=== PATIENT | male | born 1940 | race Caucasian/White ===

== ENCOUNTER 2024-01-30 06:33 | Outpatient (REF) | payer MEDICARE, SELFPAY ==
[2024-01-30 06:44] LABS: MANUAL DIFF FLAG NO
[2024-01-30 07:05] LABS: Basophils Percent Auto 0.4 % (0-2); Eosinophils Absolute Auto 0.6 X10*3/uL (0.0-0.4); Eosinophils Percent Auto 10.3 % (0-4); Hematocrit 36.3 % (42.0-52.0); Hemoglobin 12.3 g/dl (14.0-18.0); Imm Gran Abs Auto 0.06 X10*3/uL (0.00-0.03); Imm Gran Pct Auto 1.1 % (0.0-0.4); Lymphocytes Absolute Auto 2.5 X10*3/uL (1.2-4.9); Lymphocytes Percent Auto 44.6 % (20-40); Mean Corpuscular HGB Conc 33.9 g/dl (31.0-36.0); Mean Corpuscular Hemoglobin 32.7 pg (27.0-33.0); Mean Corpuscular Volume 96.5 fL (80.0-98.0); Mean Platelet Volume 9.2 fL (9.4-12.4); Monocytes Absolute Auto 0.5 X10*3/uL (0.1-1.2); Monocytes Percent Auto 9.6 % (2-11); Neutrophils Absolute Auto 1.9 x10*3/uL (2.0-8.3); Platelet Count 188 X10*3/uL (160-400); Red Blood Count 3.76 X10*6/uL (4.60-5.80); Red Cell Distribution Width 13.2 % (11.0-16.0); White Blood Count 5.5 X10*3/uL (4.8-10.8)
[2024-01-30 07:15] LABS: Anion Gap 11 (12-20); Blood Urea Nitrogen 26 mg/dL (9-16); Calcium 9.2 mg/dL (8.4-10.2); Carbon Dioxide 25 mmol/L (22-29); Chloride 108 mmol/L (96-108); Cholesterol 221 mg/dL (<200); Estimated Glomerular Filt Rate > 60; Glucose Random 248 mg/dL (60-115); HDL Cholesterol 46 mg/dL (>40); LDL Cholesterol Calculated 141 mg/dL (<100); Potassium 3.8 mmol/L (3.3-5.1); Sodium 140 mmol/L (135-145); Triglycerides 172 mg/dL (<150)
[2024-01-30 07:28] LABS: Estimated Average Glucose 166 mg/dL; Hemoglobin A1c % 7.4 % (<6.0)
[2024-01-30 07:35] LABS: Prostate Specific Antigen 2.96 ng/mL (<0.05-4.0)
[2024-01-30 15:15] LABS: Appearance Urine Turbid; Color Urine Yellow; Glucose Urine UA Negative (Negative); Leukocyte Esterase Urine Large (3+) (Negative); Nitrite Urine Negative (Negative); PH 5.5 (5.0-9.0); Specific Gravity - Urine 1.015 (1.005-1.025); UMIC TRIGGER UA YES; Urine Blood Small (1+) (Negative); Urine Ketones Negative (Negative); Urine Protein Negative (Neg-Trace)
[2024-01-30 15:49] LABS: Creatinine Urine 25.98 mg/dL; Microalbum/Creatinine Ratio Ur 69.2 ug/mg cr (<30)
[2024-01-30 15:53] LABS: Bacteria Urine 4+ (None Seen); Calcium Oxalate Crystals Urine Present; RBC Urine 0-2 /HPF (0-2); Squamous Epithelial Cell Urine 0-2 /HPF (0-2); WBC Urine >50 /HPF (0-5)
[2024-02-01 21:43] LABS: TS Negative Control Passed; TS Panel A 0; TS Panel B 1; TS Positive Control Passed; TSpotTB Negative (Negative)
== END 2024-01-30 06:34 | disposition home or self-care (01) ==
LOC: HO.HSH2E 06:33
PROVIDERS: Visit Provider Internal Medicine Medical Oncology
DX: Z12.5 Encounter for screening for malignant neoplasm of prostate (principal); I13.0 Hypertensive heart and chronic kidney disease with heart failure and stage 1 through stage 4 chronic kidney disease, or unspecified chronic kidney disease; N18.9 Chronic kidney disease, unspecified
CPT/HCPCS: 36415; 80048; 80061; 81001; 82043; 82570; 83036; 84153; 85025; 86481

== ENCOUNTER 2024-02-01 11:28 | Outpatient (REF) | payer MEDICARE, MEDICAID, SELFPAY ==
[2024-02-01 12:23] LABS: Influenza A PCR NEGATIVE (Negative); Influenza B PCR NEGATIVE (Negative); Resp Syncy Virus RNA Qual PCR NEGATIVE (Negative); SARS COV2 PCR INHOUSE NEGATIVE (Negative)
== END 2024-02-01 11:29 | disposition home or self-care (01) ==
LOC: HO.HSH2E 11:28
PROVIDERS: Visit Provider Internal Medicine Medical Oncology
DX: I10 Essential (primary) hypertension (principal); R50.9 Fever, unspecified
CPT/HCPCS: 0241U

== ENCOUNTER 2024-03-21 15:38 | Outpatient (REF) | payer MEDICARE, MEDICAID, SELFPAY ==
[2024-03-22 10:13] LABS: Adenovirus F 40/41 Not Detected (Not Detect.); Astrovirus Not Detected (Not Detect.); Campylobacter Not Detected (Not Detect.); Cryptosporidium Not Detected (Not Detect.); Cyclospora cayetanensis Not Detected (Not Detect.); E. coli EAEC Not Detected (Not Detect.); E. coli EPEC Not Detected (Not Detect.); E. coli ETEC Not Detected (Not Detect.); E. coli STEC Not Detected (Not Detect.); Entamoeba histolytica Not Detected (Not Detect.); Giardia lamblia Not Detected (Not Detect.); Norovirus GI/GII Not Detected (Not Detect.); Plesiomonas shigelloides Not Detected (Not Detect.); Rotavirus A Not Detected (Not Detect.); Salmonella Not Detected (Not Detect.); Sapovirus Not Detected (Not Detect.); Shigella sp./EIEC Not Detected (Not Detect.); Vibrio Not Detected (Not Detect.); Vibrio Cholerae Not Detected (Not Detect.); Yersinia enterocolitica Not Detected (Not Detect.)
== END 2024-03-21 15:39 | disposition home or self-care (01) ==
LOC: HO.HSH2E 15:38
PROVIDERS: Visit Provider Nurse Practitioner Acute Care
DX: R19.7 Diarrhea, unspecified (principal)
CPT/HCPCS: 87507

== ENCOUNTER 2024-03-31 09:38 | Emergency (ER) | payer MEDICARE, MEDICAID, SELFPAY ==
--- NOTE | ~2024-03-31 | CT_ITS ---
EXAMINATION: CT ABDOMEN AND PELVIS WITH CONTRAST CLINICAL INFORMATION: Abdominal distention. Diarrhea. Concern for bowel obstruction COMPARISON: None available. TECHNIQUE: Multidetector volumetric images were obtained from the superior aspect of the liver through the pubic symphysis following administration 85 mL of Omnipaque 350 intravenous contrast. Sagittal and coronal reformatted images were obtained on the technologist's workstation. Oral contrast: No This CT examination was performed using dose optimization techniques as appropriate, variously including the following: *Automated exposure control *Adjustment of mA and/or kV according to patient size (this includes techniques or standardized protocols for targeted exams where dose is matched to indication/reason for exam; i.e. extremities or head) *Use of iterative reconstruction technique DLP: 753 mGy-cm FINDINGS: LUNG BASES: There is a partially imaged moderate right pleural effusion with right lung base consolidation. There is a minimal/small left pleural effusion with associated minimal consolidation. The heart is enlarged. LIVER, GALLBLADDER, AND BILIARY TREE: The liver is normal in size, shape, and attenuation. No focal hepatic lesion or biliary ductal dilatation is present. Numerous gallstones are noted. PANCREAS: Scattered pancreatic calcifications are noted. There is mild infiltrative change along the tail of the pancreas. SPLEEN: Unremarkable. ADRENAL GLANDS: Unremarkable. KIDNEYS AND URETERS: The kidneys are normal in size, shape, and attenuation. No hydronephrosis, hydroureter, or calculi seen. No perinephric stranding. BLADDER: The urinary bladder is mildly distended, mildly thickened and trabeculated. GASTROINTESTINAL TRACT: There is retained stool throughout the colon most prominent in the since rectum with rectal expansion up to 8.2 cm in rectal thickening as well as perirectal infiltration. There appears to be circumferential soft tissue thickening of the distal descending colon. The appendix is not identified. ABDOMINAL WALL: No significant hernia is appreciated. LYMPH NODES: Normal. VASCULAR: There is atherosclerotic plaque of the abdominal aorta and proximal branches. PELVIC VISCERA: The prostate gland is enlarged measuring 7 x 5.4 x 7 cm. OSSEOUS STRUCTURES: The bony structures are osteopenic. There is diffuse qdxp-fe-ownewarn thoracolumbar degenerative change. CT/CT abdomen pelvis w IV con IMPRESSION: 1. There is retained stool throughout the colon most prominent in the rectum with rectal expansion up to 8.2 cm with rectal wall thickening and perirectal infiltration. 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 2. There is circumferential soft tissue thickening of the distal descending colon. Colonic neoplasm considered. 3. There is a moderate right pleural effusion with right lung base consolidation likely atelectasis. 4. There is a minimal/small left pleural effusion with associated minimal atelectasis. 5. There is mild infiltrative change along the tail of the pancreas. Correlation with pancreatic enzymes needed. 6. There are pancreatic calcifications suggesting chronic pancreatitis. 7. Cholelithiasis. 8. Enlarged prostate gland. Distended mildly thickened and trabeculated urinary bladder. Fleischner guidelines were followed.
[2024-03-31 09:44] VITALS: BP 132/64; PULSE 58; O2SAT 96; BMI 26.4
[2024-03-31 09:49] VITALS: BP 125/61; PULSE 63; RESP 16; TEMP 36.7; O2SAT 98
[2024-03-31 10:09] LABS: MANUAL DIFF FLAG NO
--- NOTE | 2024-03-31 10:09 | PC.NURSE ---
pt alert and oriented to self at this time. hx of dementia. [facility] concern of possible bowel obstruction. pt had KUB completed[facility] to be evaluated. per EMS - pt has had intermittent diarrhea x january. pt denies abd pain/n/v/fever/chills. pt afebrile. abd nontender upon palpation. 20gIV placed in the right AC - labs obtained/sent to lab. urine sent. left BKA noted - no signs of infection noted. pt's right foot in pressure boot. no sob/wob noted. respirations even/unlabored. pt waiting to be seen by ED provider. plan of care ongoing. call gaytan placed within reach.
[2024-03-31 10:11] LABS: Appearance Urine Cloudy; Color Urine Yellow; Glucose Urine UA Negative (Negative); Leukocyte Esterase Urine Large (3+) (Negative); Nitrite Urine Negative (Negative); PH 5.5 (5.0-9.0); Specific Gravity - Urine 1.015 (1.005-1.025); UMIC TRIGGER UACC YES; Urine Blood Negative (Negative); Urine Ketones Negative (Negative); Urine Protein Negative (Neg-Trace)
[2024-03-31 10:13] LABS: Basophils Percent Auto 0.6 % (0-2); Eosinophils Absolute Auto 0.6 X10*3/uL (0.0-0.4); Eosinophils Percent Auto 11.5 % (0-4); Hematocrit 37.9 % (42.0-52.0); Hemoglobin 12.2 g/dl (14.0-18.0); Imm Gran Abs Auto 0.04 X10*3/uL (0.00-0.03); Imm Gran Pct Auto 0.7 % (0.0-0.4); Lymphocytes Absolute Auto 1.7 X10*3/uL (1.2-4.9); Mean Corpuscular HGB Conc 32.2 g/dl (31.0-36.0); Mean Corpuscular Hemoglobin 32.1 pg (27.0-33.0); Mean Corpuscular Volume 99.7 fL (80.0-98.0); Mean Platelet Volume 9.3 fL (9.4-12.4); Monocytes Absolute Auto 0.5 X10*3/uL (0.1-1.2); Monocytes Percent Auto 8.6 % (2-11); Neutrophils Absolute Auto 2.5 x10*3/uL (2.0-8.3); Neutrophils Percent Auto 46.6 % (45-73); Platelet Count 175 X10*3/uL (160-400); Red Cell Distribution Width 13.3 % (11.0-16.0); White Blood Count 5.4 X10*3/uL (4.8-10.8)
[2024-03-31 10:16] LABS: Bacteria Urine 4+ (None Seen); RBC Urine 0-2 /HPF (0-2); Squamous Epithelial Cell Urine 0-2 /HPF (0-2); UACC Culture Trigger YES; WBC Urine >50 /HPF (0-5)
[2024-03-31 10:30] LABS: Alanine Aminotransferase 13 U/L (0-40); Albumin Level 2.7 g/dL (3.5-5.0); Alkaline Phosphatase 118 U/L (39-117); Anion Gap 11 (12-20); Aspartate Amino Transferase 13 U/L (5-37); Bilirubin Total 0.7 mg/dL (0.0-1.0); Blood Urea Nitrogen 32 mg/dL (9-16); Carbon Dioxide 28 mmol/L (22-29); Chloride 107 mmol/L (96-108); Creatinine Clr Calc Pharmacy 90.9; Estimated Glomerular Filt Rate > 60; Glucose Random 258 mg/dL (60-115); Lipase 14 U/L (8-78); Potassium 4.3 mmol/L (3.3-5.1); Sodium 142 mmol/L (135-145)
[2024-03-31 10:39] LABS: Troponin-I High Sensitivity 28.6 ng/L (<3.5-35.0)
--- NOTE | 2024-03-31 11:50 | ED_ITS ---
HPI - Recheck/Abnormal Lab/Rx General Chief Complaint: Recheck/Abnormal Lab/Rx Stated Complaint: ABN LABS FROM [facility] PER EMS Time Seen by Provider: 03/31/24 11:50 Source: patient Mode of arrival: EMS Limitations: no limitations History of Present Illness ED Provider: Dr. Hill Olivas HPI narrative: 84-year-old male with a history of diabetes mellitus, atrial fibrillation, arrhythmias with pacemaker/AICD, muscular dystrophy-myotonic dystrophy type 2, left AKA, dementia with slow speech pattern who was [facility] the emergency department [facility] for evaluation of diarrhea times 1-1/2 weeks abdominal distention and possible ileus/bowel obstruction. Information comes from the patient's sutures here in the emergency department. The patient defers all questions to his . The patient has had diarrhea for proximally 1-1/2 weeks 2-3 episodes per day. Patient has been eating and drinking well. He has had no nausea or vomiting. A two view abdomen was obtained on 03/30/2024 and the results are as follows: Dilated loops of bowel. No gross mass or abnormal calcifications. Colonic fecal residue was noted. Soft tissue appears without significant abnormalities. Conclusion: Ileus type pattern favored, obstruction not excluded. Recommend CT or follow-up is clonic he warranted. Related Data Allergies Allergy/AdvReac Type Severity Reaction Status Date / Time No Known Allergies Allergy Verified 03/31/24 09:47 [No Known Allergies*] Review of Systems 2 Review of Systems: Yes all other systems are reviewed and are negative [facility] Past Medical History [facility] Narrative: Social history: Patient is . His is here in the emergency department with him. [facility]. According to his , he is a former smoker but quit smoking in 1978. He drank in moderation but does not drink now. He never use drugs. Social History Social History Smoked in Last 30 Days: No Use of substances other than those prescribed or required for medical reasons: No Advance Directives: Yes Advance Directives on File: No Do you have a plan to hurt others: No Plan Physical Exam 2 Vital Signs: Vital Signs: Last Vital Signs Temp 98.3 F 03/31/24 20:39 Pulse 65 03/31/24 20:39 Resp 18 03/31/24 20:39 BP 134/64 03/31/24 20:39 Pulse Ox 97 06/11/24 20:39 O2 Del Method Room Air 03/31/24 20:39 BMI result Body Mass Index 26.4 Vital signs were normal Exam: General: Awake, alert in no distress Head: Normocephalic, atraumatic EENT: PERRL, Lids normal, sclera normal, conjunctiva normal, nose normal , ears normal, throat without erythema or exudates Neck: Supple, no adenopathy Lung: breath sounds symmetric, no wheezing, rales or rhonchi Chest: symmetric movement, nontender Heart: regular rate and rhythm, normal S1, S2 no murmurs or rubs Abdomen: Distended, normoactive bowel sounds, no tenderness, no voluntary or involuntary guarding, no rebound Back: no vertebral tenderness, no CVAT Extremities: no deformities, moves all extremities symmetrically Neuro: Awake, alert, oriented to person only, slow speech pattern, difficulty with word finding, cranial nerves intact, moves all extremities symmetrically Psych: Pleasant, cooperative Medications Administered Discontinued Medications Generic Name Dose Route Start Last Admin Trade Name Anatoliyq PRN Reason Stop Dose Admin Diatrizoate Meglum/Diatrizoate Sod 30 ml 03/31/24 16:12 03/31/24 16:12 Diatrizoate Meglumine, Sodium 30 Ml Solution PO 03/31/24 16:13 30 ml ONCE ONE Administration Sodium Chloride 1,000 mls @ 999 mls/hr 03/31/24 12:30 03/31/24 14:05 Ns IV 03/31/24 13:30 Infused .Q1H1M STA Infusion Iohexol 85 ml 03/31/24 15:48 03/31/24 15:48 Iohexol 350 Mg/Ml 75 Ml Infus..Btl IV 03/31/24 15:49 85 ml ONCE ONE Administration Medical Decision Making Medical Decision Making MDM Narrative: 84-year-old male with a history of diabetes mellitus, atrial fibrillation, arrhythmias with pacemaker/AICD, muscular dystrophy-myotonic dystrophy type 2, left AKA, dementia with slow speech pattern who was [facility] emergency department [facility] for [facility] of diarrhea times 1-1/2 weeks abdominal distention and possible ileus/bowel obstruction seen on two view KUB. According to , the patient has had no complaints of abdominal pain, he has been eating and drinking well but has had diarrhea. Vital signs were normal. Abdomen did appear to be distended with normal bowel sounds and no tenderness. Differential diagnosis: ?Includes but is not limited to small/large bowel obstruction, partial bowel obstruction, ileus, GI mass, electrolyte abnormalities, anemia Following evaluation was ordered: CBC, CMP, lipase, troponin, urinalysis, C diff, GI panel, CT scan of the abdomen pelvis with IV contrast and oral contrast to rule out bowel obstruction Patient was initially treated with the following: Normal saline x1 L Course: 12:40 My independent interpretation patient's laboratory evaluation is as follows: CBC was normal. CMP revealed an elevated BUN of 32 with a normal creatinine of 0.71. Glucose was elevated 250 8. Alk-phos elevated 118. High sensitive troponin I was detectable but not elevated at 28.6. Lipase was normal at 14. 21:25 The patient has remained stable since being in the emergency department, he has had no nausea or vomiting. Due to a breakdown in the PACS system and radiology overload, there has been a long delay in getting CT scan readings from Radiology. At the end of my shift, the CT scan of the patient's abdomen pelvis with oral and IV contrast is pending. The patient's care was turned over to my colleague, Dr. Patito Potter's. Admission/Observation Consideration of admission/observation: Escalation of care including admission/observation considered Consult Healthcare Provider Management of the patient was discussed with: Primary Care Provider (Dr. Ruiz) Lab Data MDM Lab Attestation statement: I reviewed the patient's lab results. 03/31/24 10:00 03/31/24 10:00 Labs: Lab Results 03/31/24 03/31/24 Range/Units 10:00 18:31 WBC 5.4 (4.8-10.8) X10*3/uL RBC 3.80 L (4.60-5.80) X10*6/uL Hgb 12.2 L (14.0-18.0) g/dl Hct 37.9 L (42.0-52.0) % MCV 99.7 H (80.0-98.0) fL MCH 32.1 (27.0-33.0) pg MCHC 32.2 (31.0-36.0) g/dl RDW 13.3 (11.0-16.0) % Plt Count 175 (160-400) X10*3/uL MPV 9.3 L (9.4-12.4) fL Immature Gran % (Auto) 0.7 H (0.0-0.4) % Neut % (Auto) 46.6 (45-73) % Lymph % (Auto) 32.0 (20-40) % [place] % (Auto) 8.6 (2-11) % Eos % (Auto) 11.5 H (0-4) % Baso % (Auto) 0.6 (0-2) % Lymph # (Auto) 1.7 (1.2-4.9) X10*3/uL [place] # (Auto) 0.5 (0.1-1.2) X10*3/uL Eos # (Auto) 0.6 H (0.0-0.4) X10*3/uL Baso # (Auto) 0.0 (0.0-0.2) X10*3/uL Abs Immat Gran (auto) 0.04 H (0.00-0.03) X10*3/uL Absolute Neuts (auto) 2.5 (2.0-8.3) x10*3/uL Absolute Nucleated RBC 0.000 (0.0-0.012) X10*3/uL Nucleated RBC % (auto) 0.0 (0.0-0.2) /100WBC Sodium 142 (135-145) mmol/L Potassium 4.3 (3.3-5.1) mmol/L Chloride 107 (96-108) mmol/L Carbon Dioxide 28 (22-29) mmol/L Anion Gap 11 L (12-20) BUN 32 H (9-16) mg/dL Creatinine 0.71 (0.5-1.4) mg/dL Estim Creat Clear Calc 90.9 Estimated GFR > 60 POC Glucose 106 (60-115) mg/dL Random Glucose 258 H (60-115) mg/dL Calcium 9.0 (8.4-10.2) mg/dL Total Bilirubin 0.7 (0.0-1.0) mg/dL AST 13 (5-37) U/L ALT 13 (0-40) U/L Alkaline Phosphatase 118 H (39-117) U/L Troponin I High Sens 28.6 (<3.5-35.0) ng/L Total Protein 6.0 L (6.5-8.0) g/dL Albumin 2.7 L (3.5-5.0) g/dL Lipase 14 (8-78) U/L Urine Color Yellow Urine Appearance Cloudy Urine pH 5.5 (5.0-9.0) Ur Specific [place] 1.015 (1.005-1.025) Urine Protein Negative (Neg-Trace) mg/dL Urine Glucose (UA) Negative (Negative) mg/dL Urine Ketones Negative (Negative) mg/dL Urine Blood Negative (Negative) Urine Nitrite Negative (Negative) Ur Leukocyte Esterase Large (3+) H (Negative) Urine RBC 0-2 (0-2) /HPF Urine WBC >50 H (0-5) /HPF Ur Squamous Epith Cells 0-2 (0-2) /HPF Urine Bacteria 4+ (None Seen) Hyaline Casts 3-5 (0-2) /LPF Chronic Conditions Patient?s care impacted by: Diabetes and Other (Dementia, muscular dystrophy) Discharge Plan Discharge Clinical Impression: Diarrhea, Abdominal distension Patient Disposition: Still a Patient Print Language: Trinidadian
[2024-03-31 12:42] VITALS: BP 119/58; PULSE 63; RESP 16; TEMP 36.5; O2SAT 97
[2024-03-31] MEDS: 0.9 % Sodium Chloride 1,000 ML 999 ML IV (12:44)
--- NOTE | 2024-03-31 12:49 | PC.NURSE ---
IVF administered per provider order. pt waiting to go to CT at this time. bedside for support.
--- NOTE | 2024-03-31 15:20 | PC.NURSE ---
pt still verbalizing no pain at this time. has no acute complaints. CT reminded that pt completed drinking entire oral contrast in prep for CT to be completed. pt waiting to go to CT at this time. remains bedside for support. plan of care ongoing. call gaytan placed within reach.
[2024-03-31 15:26] VITALS: BP 143/63; PULSE 66; RESP 18; TEMP 36.6; O2SAT 97
[2024-03-31] MEDS: iohexoL 350 MG/ML 75 ML INFUS..BTL 85 ML IV (15:48)
--- NOTE | 2024-03-31 15:52 | PC.NURSE ---
pt to CT at this time.
[2024-03-31] MEDS: Diatrizoate Meglumine, Sodium 30 ML SOLUTION PO (16:12)
[2024-03-31 18:22] VITALS: BP 121/56; PULSE 65; RESP 16; TEMP 36.8; O2SAT 98
[2024-03-31 18:37] LABS: Glucose, Whole Blood 106 mg/dL (60-115)
[2024-03-31 20:39] VITALS: BP 134/64; PULSE 65; RESP 18; TEMP 36.8; O2SAT 97
[2024-03-31 21:32] LABS: Glucose, Whole Blood 106 mg/dL (60-115)
--- NOTE | 2024-03-31 23:07 | PC.NURSE ---
very upset that CT results aren't back yet. This RN apologized. stating [facility]'t hear anything in the next 15 minutes. made aware.
[2024-04-01 00:26] VITALS: BP 144/71; PULSE 65; RESP 18; TEMP 36.9; O2SAT 97
--- NOTE | 2024-04-01 00:37 | MHC.EDTECH ---
This tech took over care of patient at 2300,hourly rounds and vitals completed,patient had smears of brown stool, not enough to get a stool sample,patient was cleaned,danielle-care given, patient was repositioned to right side,pillows placed,rectal temp taken 98.4 ,patient came from the facility with a [place] Cath emptied 500MLS of yellow urine. call gaytan in reach
[2024-04-01] MEDS: Sodium Phosphate,Mono-Dibasic 133 ML ENEMA PR (02:34)
[2024-04-01 02:35] VITALS: BP 138/69; PULSE 68; RESP 18; TEMP 36.7; O2SAT 97
--- NOTE | 2024-04-01 02:36 | MHC.EDTECH ---
Hourly rounds and vitals completed,patient repositioned,warm blanket given,awaiting ambulance at this time to go back to facility
[2024-04-01 03:19] VITALS: BP 138/69; PULSE 68; RESP 18; TEMP 36.7; O2SAT 97
== END 2024-04-01 03:15 | disposition home or self-care (01) ==
PROVIDERS: Emergency Medicine Emergency Medical Services; Emergency Provider Emergency Medicine; PCP Internal Medicine Endocrinology, Diabetes & Metabolism
DX: R14.0 Abdominal distension (gaseous) (principal); R79.89 Other specified abnormal findings of blood chemistry; R11.2 Nausea with vomiting, unspecified; Z79.899 Other long term (current) drug therapy
CPT/HCPCS: 36415; 74177; 80053; 81001; 82947; 83690; 84484; 85025; 87086; 96360; 99285; Q9967

== ENCOUNTER → 2024-04-01 11:51 | Outpatient (AMB) | payer MEDICARE, SELFPAY ==
--- NOTE | 2024-04-01 11:50 | HO.VETSHOME ---
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 Thompson [facility] He has a past medical history of diabetes mellitus, atrial fibrillation, arrhythmias with pacemaker/AICD, muscular dystrophy-myotonic dystrophy type 2, left AKA, dementia with slow speech pattern. He is being followed up on today as a new patient for an enlarged prostate. Of note, patient was seen at [facility] emergency room services yesterday for question of possible ileus/bowel obstruction at which time a CT was ordered for further assessment evaluation. These results were reviewed today. The kidneys are normal in size, shape, and attenuation. No hydronephrosis, hydroureter, or calculi seen. No perinephric stranding. The urinary bladder is mildly distended, mildly thickened and trabeculated. Enlarged prostate noted In discussion with nursing today patient with a longstanding history of urinary incontinence and has been utilizing [place] catheter. Patient is a poor historian and it is difficult to obtain information. In discussion with the patient today he states Cant you go find someone else to play with . Unable to perform ZUHAIR and or PVR. Discussed potential for overflow incontinence verses incomplete bladder emptying related to question of bowel obstruction. In assessment of the patient today it appears [place] catheter is draining clear yellow urine. Nursing into attempt to obtain PVR. PVR 465ml's. However, this is not a true PVR as patient did not attempt to utilize the bathroom. Patient does not typically utilize the bathroom as he generally uses [place] catheter and or adult diapers. Discussed with nursing to obtain PVR every shift and to trend. Discussed if PVRs continue to trend up to straight cath or insert contreras catheter and call urology office so that we are aware of new plan of care. In review of patients chart it appears PSA was obtained however this was not available at the time of this visit. PSA 02/11 3.0 Review of Systems Const Unobtainable due to mental status Physical Exam Const General: comfortable, no acute distress, well developed, alert and awake Orientation/consciousness: oriented to person HEENT Head: Yes normal to inspection, Yes normocephalic and Yes atraumatic Eyes General: appearance normal, both eyes and all related structures Neck Neck: Yes normal visual inspection Chest Chest palpation & inspection: normal inspection of the chest Resp Effort & Inspection: normal respiratory effort and able to speak in complete sentences Cardio Rate: regular rate GI Inspection: Yes normal to inspection Neuro General: oriented to person Psych Appearance: well kempt Speech and movement: Clear speech present Attitude: Avoids eye contact (attititude/behavior) Insight: Limited insight present (Psych) and Poor insight present (Psych) Judgement: Limited judgement present (Psych) and Poor judgement present (Psych) Results Reviewed Results Reviewed: Date of Service: 03/31/24 EXAMINATION: CT ABDOMEN AND PELVIS WITH CONTRAST LUNG BASES: There is a partially imaged moderate right pleural effusion with right lung base consolidation. There is a minimal/small left pleural effusion with associated minimal consolidation. The heart is enlarged. LIVER, GALLBLADDER, AND BILIARY TREE: The liver is normal in size, shape, and attenuation. No focal hepatic lesion or biliary ductal dilatation is present. Numerous gallstones are noted. PANCREAS: Scattered pancreatic calcifications are noted. There is mild infiltrative change along the tail of the pancreas. SPLEEN: Unremarkable. ADRENAL GLANDS: Unremarkable. KIDNEYS AND URETERS: The kidneys are normal in size, shape, and attenuation. No hydronephrosis, hydroureter, or calculi seen. No perinephric stranding. BLADDER: The urinary bladder is mildly distended, mildly thickened and trabeculated. GASTROINTESTINAL TRACT: There is retained stool throughout the colon most prominent in the since rectum with rectal expansion up to 8.2 cm in rectal thickening as well as perirectal infiltration. There appears to be circumferential soft tissue thickening of the distal descending colon. The appendix is not identified. ABDOMINAL WALL: No significant hernia is appreciated. LYMPH NODES: Normal. VASCULAR: There is atherosclerotic plaque of the abdominal aorta and proximal branches. PELVIC VISCERA: The prostate gland is enlarged measuring 7 x 5.4 x 7 cm. OSSEOUS STRUCTURES: The bony structures are osteopenic. There is diffuse mezu-da-gfsihpeb thoracolumbar degenerative change. IMPRESSION: 1. There is retained stool throughout the colon most prominent in the rectum with rectal expansion up to 8.2 cm with rectal wall thickening and perirectal infiltration. 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 2. There is circumferential soft tissue thickening of the distal descending colon. Colonic neoplasm considered. 3. There is a moderate right pleural effusion with right lung base consolidation likely atelectasis. 4. There is a minimal/small left pleural effusion with associated minimal atelectasis. 5. There is mild infiltrative change along the tail of the pancreas. Correlation with pancreatic enzymes needed. 6. There are pancreatic calcifications suggesting chronic pancreatitis. 7. Cholelithiasis. 8. Enlarged prostate gland. Distended mildly thickened and trabeculated urinary bladder. Assessment & Plan Assessment & Plan (1) Enlarged prostate: Code(s): N40.0 - Benign prostatic hyperplasia without lower urinary tract symptoms (2) Incomplete bladder emptying: Code(s): R33.9 - Retention of urine, unspecified (3) Urinary incontinence: Code(s): R32 - Unspecified urinary incontinence (4) Bladder trabeculation: Code(s): N32.89 - Other specified disorders of bladder (5) Bladder wall thickening: Code(s): N32.89 - Other specified disorders of bladder Plan Recent CT results reviewed; as noted above. Recent PSA results reviewed. Discuss obtaining and trending postvoid residuals every shift; discussed if postvoid residuals continue to increase consistently potential need for straight cath verses Contreras catheter. Discussed calling office if straight cath or Contreras is inserted to potentially arrange for in office cystoscopy for further assessment evaluation. Start finasteride 5 mg daily Start terazosin 5 mg daily Continue [place] catheter as patient with longstanding history of urinary incontinence. Follow up in 1-2 months or sooner with any issues, concerns, and or questions. Patient Instructions: The patient had an opportunity to ask questions regarding the treatment plan. All questions were answered. Physical exam, labs, and imaging were discussed and reviewed in detail. As well as risks, benefits, and discussion of treatment choices. No major barriers to understanding were identified. The patient expressed understanding and agreement with the above treatment plan. The patient was made aware they should contact our office by phone for worsening of their current condition, the appearance of new symptoms, or with any questions or concerns. Compliance is encouraged with any medications and follow up testing that is ordered. It is a privilege to be allowed the opportunity to participate in? your urological care.? Again, if you have any questions or concerns If you have any questions or concerns please do not hesitate to contact me. The office is [phone]. This note is constructed using voice recognition software. While every effort has been made to ensure accuracy bottom turner errors may have been included. Yours sincerely, NIRMALA Manuel Coding Level of Care Code 36260-Rswd Fac initial, mod Diagnoses Enlarged prostate N40.0 Incomplete bladder emptying R33.9 Urinary incontinence R32 Bladder trabeculation N32.89 Bladder wall thickening N32.89
== END ==
PROVIDERS: PCP Internal Medicine Endocrinology, Diabetes & Metabolism; Visit Provider Nurse Practitioner Family
DX: N40.0 Benign prostatic hyperplasia without lower urinary tract symptoms (principal); R33.9 Retention of urine, unspecified; R32 Unspecified urinary incontinence; N32.89 Other specified disorders of bladder
CPT/HCPCS: 99305

== ENCOUNTER 2024-04-02 07:05 | Outpatient (REF) | payer MEDICARE, SELFPAY ==
[2024-04-02 08:32] LABS: PSA,Total (Free>4and<10) 2.85 ng/mL (0.00-4.00)
== END 2024-04-02 07:06 | disposition home or self-care (01) ==
LOC: HO.HSH2E 07:05
PROVIDERS: Visit Provider Internal Medicine Medical Oncology
DX: Z12.5 Encounter for screening for malignant neoplasm of prostate (principal); N40.0 Benign prostatic hyperplasia without lower urinary tract symptoms
CPT/HCPCS: 36415; 84153

== ENCOUNTER 2024-04-20 06:31 | Outpatient (REF) | payer MEDICARE, SELFPAY ==
[2024-04-20 06:37] LABS: MANUAL DIFF FLAG NO
[2024-04-20 07:29] LABS: Basophils Percent Auto 0.6 % (0-2); Eosinophils Absolute Auto 0.5 X10*3/uL (0.0-0.4); Eosinophils Percent Auto 10.6 % (0-4); Hematocrit 37.8 % (42.0-52.0); Hemoglobin 12.5 g/dl (14.0-18.0); Imm Gran Abs Auto 0.07 X10*3/uL (0.00-0.03); Imm Gran Pct Auto 1.4 % (0.0-0.4); Lymphocytes Absolute Auto 1.9 X10*3/uL (1.2-4.9); Lymphocytes Percent Auto 39.4 % (20-40); Mean Corpuscular HGB Conc 33.1 g/dl (31.0-36.0); Mean Corpuscular Hemoglobin 32.6 pg (27.0-33.0); Mean Corpuscular Volume 98.4 fL (80.0-98.0); Mean Platelet Volume 9.2 fL (9.4-12.4); Monocytes Absolute Auto 0.5 X10*3/uL (0.1-1.2); Monocytes Percent Auto 9.6 % (2-11); Neutrophils Absolute Auto 1.9 x10*3/uL (2.0-8.3); Neutrophils Percent Auto 38.4 % (45-73); Platelet Count 196 X10*3/uL (160-400); Red Blood Count 3.84 X10*6/uL (4.60-5.80); Red Cell Distribution Width 13.2 % (11.0-16.0); White Blood Count 4.9 X10*3/uL (4.8-10.8)
[2024-04-20 08:06] LABS: Alanine Aminotransferase 25 U/L (0-40); Albumin Level 2.5 g/dL (3.5-5.0); Alkaline Phosphatase 131 U/L (39-117); Anion Gap 11 (12-20); Aspartate Amino Transferase 17 U/L (5-37); Bilirubin Total 0.7 mg/dL (0.0-1.0); Blood Urea Nitrogen 20 mg/dL (9-16); Calcium 8.8 mg/dL (8.4-10.2); Carbon Dioxide 25 mmol/L (22-29); Chloride 107 mmol/L (96-108); Estimated Glomerular Filt Rate > 60; Glucose Random 122 mg/dL (60-115); Potassium 3.8 mmol/L (3.3-5.1); Sodium 139 mmol/L (135-145); Total Protein 5.8 g/dL (6.5-8.0)
== END 2024-04-20 06:32 | disposition home or self-care (01) ==
LOC: HO.HSH2E 06:31
PROVIDERS: Visit Provider Internal Medicine Medical Oncology
DX: E11.9 Type 2 diabetes mellitus without complications (principal); I48.91 Unspecified atrial fibrillation
CPT/HCPCS: 36415; 80053; 82378; 85025

== ENCOUNTER 2024-04-22 10:23 | Outpatient (AMB) | payer MEDICARE, SELFPAY ==
--- NOTE | 2024-04-22 10:25 | MHC.OFFVIS ---
Vital Signs 04/22/24 11:40 Height 6 ft Weight 205 lb BMI 27.8 BP 148/66 H Blood Pressure Location Lt brachial Position Sitting Pulse 66 Pulse Source Pulse Oximeter Pulse Oximetry (%) 96 Oxygen Delivery Method Room Air Intake Visit Reasons: colitis Intake Note: Beka presents in office today for a scheduled initial assessment visit. CC; Beka was seen at the [facility] ED on 04/01/2024 for related sx. Pt had CT performed at this visit which showed increased inflammation in the rectal region. Pt was advised that he may require a colo s/p depending on the opinion of the GI specialist. Pt spouse reports that the pt has been experiencing intermittent diarrhea and constipation. Pt is unsure the approximate time between bowel movements. However, she can report that he does have frequent loose stools. Pt had been receiving enemas however it seems that they have stopped this at this time. Pt reports that they are concerned about the possibility of anesthesia and the interaction with dementia. Health Education Coordinator Required: No Allergies No Known Allergies [No Known Allergies*] Allergy (Verified 04/22/24 14:26) HPI HPI colitis: Details: ED VISIT 03/31/2024 I received sign-out from my colleague Dr. Olivas -CT scan of the abdomen pending, to rule out small bowel obstruction. -radiology report: No small bowel obstruction. However, there is rectal wall thickening suggestive of stercoral colitis and possibly a colonic neoplasm considered. There is chronic inflammation in the pancreas, however patient's lipase is within normal limits, patient has no significant abdominal pain. There is a minimal/small left pleural effusion, patient has no respiratory symptoms or oxygen desaturation -[facility], recommended that the patient follows up with Gastroenterology, patient may need a colonoscopy IMPRESSION: 1. There is retained stool throughout the colon most prominent in the rectum with rectal expansion up to 8.2 cm with rectal wall thickening and perirectal infiltration. 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 2. There is circumferential soft tissue thickening of the distal descending colon. Colonic neoplasm considered. 3. There is a moderate right pleural effusion with right lung base consolidation likely atelectasis. 4. There is a minimal/small left pleural effusion with associated minimal atelectasis. 5. There is mild infiltrative change along the tail of the pancreas. Correlation with pancreatic enzymes needed. 6. There are pancreatic calcifications suggesting chronic pancreatitis. 7. Cholelithiasis. 8. Enlarged prostate gland. Distended mildly thickened and trabeculated urinary bladder. 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 Patient is accompanied by his . [facility] Patient is sitting in the wheelchair, patient has mild dementia and unable to answer questions. Patient's is answering questions. Back in March patient was seen in the ER for diarrhea that lasted over 1 week. Patient prior to that was getting Fleet enema almost daily. Patient had no fever or chills. Patient denied any abdominal pain or discomfort. There was no melena or hematochezia. Patient was shown to have mild infiltrative changes along the tail of the pancreas, however his enzymes were normal in the ER at that time. Patient had no nausea or vomiting. Today patient reports that he is feeling fine. His states that his stools has normalized. He however occasionally still have loose stools. Patient denies any abdominal pain or bloating. Patient denies any rectal discomfort or pain. Patient had no leukocytosis. 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 Atrial flutter Surgical History Status post ablation of atrial fibrillation Hx of appendectomy Family History Mother Colon cancer Social History Alcohol intake: former Patient Tobacco Use Status: Former Tobacco user Tobacco use type: Cigarette Review of Systems Const Unobtainable due to mental status and Other (Most of information from patient's ) Denies weight gain and Denies weight loss ENT Reports no additional complaints, Denies dysphagia and Denies odynophagia Card Reports no additional complaints Resp Reports no additional complaints GI Denies abdominal pain, Denies belching, Denies melena, Denies bloating, Denies change in bowel habits, Denies dysphagia, Denies excessive flatus, Denies dyspepsia, Denies heartburn, Denies diarrhea, Denies loose stools, Denies nausea, Denies odynophagia and Denies vomiting Reports no additional complaints Musc Reports no additional complaints Neuro Reports no additional complaints Psych Reports no additional complaints Endo Reports no additional complaints Physical Exam Vital Signs: Last Vital Signs Pulse 66 04/22/24 11:40 BP 148/66 H 04/22/24 11:40 Pulse Ox 96 04/22/24 11:40 Oxygen Delivery Method Room Air 04/22/24 11:40 BMI result Body Mass Index 27.8 Const Other: Patient is sitting in the wheelchair left above knee amputee, history of dementia, able to answer all the questions and provide history General: healthy appearing, no acute distress and well developed Nutritional Appearance: well nourished Orientation/consciousness: patient oriented x3 Resp Effort & Inspection: normal respiratory effort, able to speak in complete sentences, no tracheal deviation and symmetric chest movement Auscultation: clear to auscultation bilaterally Cardio Rate: regular rate GI Inspection: Yes normal to inspection and No distended Palpation (GI): Soft to palpation, not firm, nontender and No hepatosplenomegaly present Auscultation: normal bowel sounds General: Yes no CVA tenderness Back/Spine/Pelvis Back: no CVA tenderness Skin General skin exam: elasticity normal, turgor normal and dry skin Neuro General: patient oriented x3 Psych Appearance: grossly normal Mental Status: mental status grossly normal Assessment & Plan Assessment & Plan (1) Diarrhea: Code(s): R19.7 - Diarrhea, unspecified Qualifiers: Diarrhea type: functional diarrhea Qualified Code(s): K59.1 - Functional diarrhea (2) Constipation: Code(s): K59.00 - Constipation, unspecified Qualifiers: Constipation type: slow transit constipation Qualified Code(s): K59.01 - Slow transit constipation (3) Stercoral colitis: Code(s): K52.89 - Other specified noninfective gastroenteritis and colitis Category: Medical Plan Recommendation to stop MiraLax and start patient on fiber supplement daily. Patient can take Benefiber to help bulk stools and may take Senokot in the evening two tablets to help eliminate his bowels better. We will hold off on ordering colonoscopy at this time. 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 Stercoral colitis was most likely created by frequent diarrhea and possibly Fleet enemas. Currently patient reports that Fleet enemas on hold. Continue holding for now. For now we will order CT enterography. Even though the CT scan was IV contrast there was no oral contrast,we will re-evaluate after enterography will be performed with both oral and IV contrast. CEA was normal which tells me that most likely benign finding on a CT scan. All of this was discussed with patient and his , however patient is unable to understand. Patient is agreeable to plan of care and verbalizes understanding of instructions. She was given the opportunity to ask questions and all questions answered. Thank you for allowing me to participate in his care Orders: Orders CT enterography Today R93.5 - Abnormal findings on diagnostic imaging of other abdominal regions, including retroperitoneum Blood Urea Nitrogen Today R10.11 - Right upper quadrant pain Creatinine Today R10.11 - Right upper quadrant pain Medications: New sennosides (Natural Senna Laxative) 17.2 mg (2 x 8.6 mg) PO BEDTIME 60 tabs 1RF constipation K59.00 - Constipation, unspecified wheat dextrin (Benefiber Clear Sugar Free(dextrin)) mix into at least 4 oz water or juice before administering 1 packet PO DAILY 28 ea 5RF K59.01 - Slow transit constipation Coding Level of Care Code New Pt Level 4 (97110) Diagnoses Functional diarrhea K59.1 Diarrhea type: functional diarrhea Slow transit constipation K59.01 Constipation type: slow transit constipation Stercoral colitis K52.89 Time Spent (min) 45 Comment 30 minutes spent with patient and additional 15 minutes spent reviewing his records
[2024-04-22 11:40] VITALS: BP 148/66; PULSE 66; O2SAT 96; BMI 27.8
== END 2024-04-22 12:13 | disposition home or self-care (01) ==
PROVIDERS: PCP Internal Medicine Endocrinology, Diabetes & Metabolism; Visit Provider Nurse Practitioner Family
DX: K59.1 Functional diarrhea (principal); K59.01 Slow transit constipation; K52.89 Other specified noninfective gastroenteritis and colitis
CPT/HCPCS: 99204

== ENCOUNTER → 2024-04-22 10:23 | Outpatient (BNVA) | payer MEDICARE, SELFPAY | PROVIDERS: PCP Internal Medicine Endocrinology, Diabetes & Metabolism; Visit Provider Nurse Practitioner Family | DX: K59.01 Slow transit constipation (principal); K59.1 Functional diarrhea; K52.89 Other specified noninfective gastroenteritis and colitis; R93.5 Abnormal findings on diagnostic imaging of other abdominal regions, including retroperitoneum; R10.11 Right upper quadrant pain | CPT/HCPCS: 99202 ==

== ENCOUNTER 2024-04-22 14:25 | Outpatient (AMB) | payer MEDICARE, SELFPAY ==
--- NOTE | 2024-04-22 14:25 | A.OFFVIS_ITS ---
Intake Intake Visit Reasons: CT f/u It Applications Analyst Required: No Allergies No Known Allergies [No Known Allergies*] Allergy (Verified 04/22/24 14:26) HPI HPI Comments History of Present Illness Details Beka is a pleasant male. He is a patient of Dr. Thompson. [facility] He is seen for the following urologic conditions - lower urinary tract symptoms Lower urinary tract symptoms CT imaging performed during emergency room admission which showed distended bladder, mildly thickened with trabeculation Enlarged prostate Longstanding urinary incontinence with use of [place] catheter PSA 02/11 3.0 Optimization with prostate medications finasteride and terazosin PVR trends underwent 100 cc Continue medications [facility] Medical History (Updated 04/22/24 @ 19:45 by Autumn Rojas [facility]-) Stercoral colitis Spontaneous ASD closure Hemorrhoids Dysphagia Obstructive and reflux uropathy BPH (benign prostatic hyperplasia) Chronic kidney disease Spinal stenosis Diabetes mellitus Myotonic muscular dystrophy Anemia Hyperlipidemia Hypertension Atrial fibrillation Pacemaker 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 Atrial flutter Surgical History Status post ablation of atrial fibrillation Hx of appendectomy Family History Mother Colon cancer Social History Alcohol intake: former Patient Tobacco Use Status: Former Tobacco user Tobacco use type: Cigarette Review of Systems Const Denies chills and Denies fever(s) Card Reports no additional complaints and Denies syncope Resp Denies cough GI Denies abdominal pain and Denies heartburn Reports as per HPI and Denies change in libido Neuro Denies syncope Psych Denies change in libido Endo Denies change in libido Physical Exam Const General: cooperative, healthy appearing, comfortable and no acute distress Orientation/consciousness: patient oriented x3 HEENT Face and sinus: Yes normal facial exam Mouth: moist mucous membranes Neck Neck: Yes normal visual inspection, Yes full ROM and Yes trachea midline Chest Chest palpation & inspection: normal inspection of the chest Resp Effort & Inspection: normal respiratory effort, able to speak in complete sentences and no respiratory distress GI Inspection: Yes normal to inspection Back/Spine/Pelvis Cervical Spine: normal cervical lordosis Thoracic/Lumbar Spine: thoracic and lumbar spine normal to inspection Skin General skin exam: no rashes or lesions noted Neuro General: patient oriented x3, gait normal, tone normal and moves all extremities Extrem General: Yes normal to inspection and Yes capillary refill normal Assessment & Plan Assessment & Plan (1) Bladder wall thickening: Code(s): N32.89 - Other specified disorders of bladder (2) Bladder trabeculation: Code(s): N32.89 - Other specified disorders of bladder (3) Urinary incontinence: Code(s): R32 - Unspecified urinary incontinence Plan Continue medications Six-month follow-up Patient Instructions: Imaging studies, laboratory and physical exam results were discussed and reviewed in detail. No major barriers to patient understanding were identified. An opportunity to ask questions regarding the treatment plan was provided. All questions were answered. The patient expressed understanding and agreement with the above treatment plan. The patient is aware they should contact our office by phone for worsening of their current condition or the appearance of new urologic symptoms. Compliance is encouraged with any medications and followup testing that is ordered. It is a privilege to participate in the urologic care of your patient. If you have any questions or concerns regarding treatment for the above conditions, or other urologic issues, please do not hesitate to contact me. The office telephone contact is [phone]. This note is constructed using voice recognition software. While every effort has been made to ensure accuracy window decorator errors may have been included. Yours sincerely, Dr Yasir Simon MD, [facility] - Urology Providers of Expert, Compassionate Care for the Genitourinary System Coding Level of Care Code [id number] Fac sub, mod Diagnoses Bladder wall thickening N32.89 Bladder trabeculation N32.89 Urinary incontinence R32
== END 2024-04-22 16:00 | disposition home or self-care (01) ==
LOC: HO.HUSV 14:25
PROVIDERS: PCP Internal Medicine Endocrinology, Diabetes & Metabolism; Visit Provider Urology
DX: N32.89 Other specified disorders of bladder (principal); R32 Unspecified urinary incontinence
CPT/HCPCS: 99309

== ENCOUNTER 2024-05-20 06:13 | Outpatient (REF) | payer MEDICARE, SELFPAY ==
[2024-05-20 06:44] LABS: Blood Urea Nitrogen 31 mg/dL (9-16); Estimated Glomerular Filt Rate > 60
== END 2024-05-20 06:14 | disposition home or self-care (01) ==
LOC: HO.HSH2E 06:13
PROVIDERS: Visit Provider Internal Medicine Endocrinology, Diabetes & Metabolism
DX: E11.9 Type 2 diabetes mellitus without complications (principal); N40.0 Benign prostatic hyperplasia without lower urinary tract symptoms
CPT/HCPCS: 36415; 82565; 84520

== ENCOUNTER 2024-05-24 12:51 | Inpatient (IN) | payer MEDICARE, MEDICAID, SELFPAY ==
--- NOTE | ~2024-05-24 | CT_ITS ---
EXAMINATION: CTA NECK WITH CONTRAST (STROKE) CTA BRAIN WITH CONTRAST (STROKE) CLINICAL INFORMATION: Suspect acute stroke. Assess for major vessel occlusion. Please call report. COMPARISON: None available. TECHNIQUE: CTA of the head and neck was performed in the axial plane from the mediastinum to the skull vertex using 70 mL Omnipaque 350 intravenous contrast. Additional reformatted multiplanar images including maximum intensity projection MIP images are generated on the CT workstation. This CT examination was performed using dose optimization techniques as appropriate, variously including the following: *Automated exposure control *Adjustment of mA and/or kV according to patient size (this includes techniques or standardized protocols for targeted exams where dose is matched to indication/reason for exam; i.e. extremities or head) *Use of iterative reconstruction technique DLP: 1735 mGy-cm FINDINGS: The degree of stenosis determined by criteria similar to NASCET. CTA NECK: Three-vessel aortic arch. There are atherosclerotic calcifications scattered through origins and segments of the the great vessels without significant stenosis. The origins and cervical segments of the common carotid arteries are patent bilaterally. The common carotid artery bifurcations demonstrate mural calcifications extending into the cervical segments of the internal carotid arteries. There is approximately 30% focal stenosis of the Roxanol left cervical ICA. No significant stenosis on the right. The remaining segments of the cervical ICAs are patent bilaterally. There is complete occlusion of the left vertebral artery origin. The origin of the paravertebral arteries patent. The cervical segments of the vertebral arteries are patent bilaterally. No other site of hemodynamically significant stenosis, dissection, or aneurysm. The visualized branches of the external carotid arteries are unremarkable. CTA HEAD: Moderate atherosclerotic calcifications of the bilateral carotid siphons. Anterior circulation: The petrous, cavernous, and supraclinoid segments of the internal carotid arteries are patent bilaterally. The major branches of the anterior and middle cerebral arteries as well as the anterior communicating artery complex are patent. No large vessel occlusion, saccular aneurysm, or dissection. Posterior circulation: The intracranial vertebral arteries are patent bilaterally. The basilar artery is normal in course and caliber. The posterior cerebral and superior cerebellar arteries arise normally from the basilar summit. Right posterior cerebral artery. No aneurysm. On delayed imaging, the venous structures demonstrate normal contrast opacification. No filling defect. No abnormal intraparenchymal enhancement. Soft tissues: No suspicious neck mass or cervical adenopathy. Lungs: Partially imaged right pleural effusion with partial right lower lobe collapse. Bones: No acute osseous abnormality. No lytic or blastic osseous lesions. Multilevel degenerative changes of the visualized spine. CT/CT angio head neck stroke IMPRESSION: -CTA head demonstrates no large vessel occlusion, saccular aneurysm, or dissection. -CTA and neck demonstrates complete focal stenosis of the left vertebral artery origin. 30% focal stenosis of the left cervical ICA. Otherwise, no hemodynamically significant stenosis, dissection, or aneurysm. Partially imaged right pleural effusion with partial right lower lobe collapse.
--- NOTE | ~2024-05-24 | CT_ITS ---
EXAMINATION: CT HEAD WITHOUT CONTRAST (STROKE PROTOCOL) CLINICAL INFORMATION: Stroke protocol. AMS. COMPARISON: CT brain 09/01/2015. TECHNIQUE: Contiguous axial imaging was performed from the skull base to vertex without intravenous administration of contrast. This CT examination was performed using dose optimization techniques as appropriate, variously including the following: *Automated exposure control *Adjustment of mA and/or kV according to patient size (this includes techniques or standardized protocols for targeted exams where dose is matched to indication/reason for exam; i.e. extremities or head) *Use of iterative reconstruction technique DLP: 840 mGy-cm FINDINGS: There is no acute intra-axial, extra-axial bleed, masses or midline shift. There is no acute infarction in evolution. There is no edema. There is diffuse periventricular hypodensity in both cerebral hemispheres. There is Right frontal encephalomalacia from old insult with surrounding hypodensity likely chronic ischemic changes.. The lateral ventricles are enlarged but symmetrical. Bone windows reveal no calvarial abnormality. There is no scalp soft tissue abnormality. There is mucoperiosteal thickening right frontal, middle ethmoid and maxillary sinuses. Rest the paranasal sinuses and mastoid air cells are well-aerated. CT/CT head for stroke IMPRESSION: No acute intracranial process seen. There is a right frontal lobe encephalomalacia with chronic white matter changes. Chronic inflammatory changes right frontal, middle ethmoid and maxillary sinuses. This critical result was discussed with EVENS Lacey at 1:2 PM on 05/24/2024. It was ascertained that the content and urgency of the report was understood at the time of direct communication.
--- NOTE | 2024-05-24 12:51 | ECG_ITS ---
Test Reason : STROKE Blood Pressure : / mmHG Vent. Rate : 062 BPM Atrial Rate : 060 BPM P-R Int : 000 ms QRS Dur : 162 ms QT Int : 498 ms P-R-T Axes : 000 125 -40 degrees QTc Int : 505 ms Ventricular-paced rhythm with occasional Premature ventricular complexes Biventricular pacemaker detected Abnormal ECG No previous ECGs available Referred By: Nikhil Galeano Electronically Signed By:BRIDGETTE CHASE MD
[2024-05-24 12:57] VITALS: BP 122/63; PULSE 64; PULSE 75; RESP 18; TEMP 36.4; O2SAT 94; BMI 32.5
--- NOTE | 2024-05-24 13:00 | PC.NURSE ---
[facility] via [facility]. 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 staff reports sudden onset of being nonverbal/aggressive towards staff (which is not pt's baseline). MD at [facility] noticed small left sided facial droop. fast ED = 3. +thinners. hx of dementia. upon EMS arrival - pt in physical restraints as he was combative w/ SNF staff as well as EMS. transferred to stretcher w/o any combative episodes. accurate weight obtained. vss. pt immediately to CT. when being assessed by provider - pt remains nonverbal. flat affect. no facial droop noted. unable to assess mental status as pt does not respond to questions/follow commands appropriately. pt seems to be disoriented. foul/strong urine odor noted to be coming from pt. external catheter in place prior to EMS arrival - placed by [facility]. 20gIV placed in the right forearm - patent/intact. access wrapped w/ curex bandage for safety precautions. pt seems to be in no apparent distress. no sob/wob noted. respirations even/unlabored. plan of care ongoing.
--- NOTE | 2024-05-24 13:00 | ED.GENADULT ---
HPI - General Adult General Chief complaint: Stroke Stated complaint: NONVEBAL, STROKE SYMPTOMS Time Seen by Provider: 05/24/24 12:53 Source: EMS Mode of arrival: EMS Limitations: altered mental status History of Present Illness ED Provider: Moiz WALKER HPI narrative: 84-year-old male history of diabetes mellitus, atrial fibrillation, arrhythmias with pacemaker/AICD, muscular dystrophy-myotonic dystrophy type 2, left AKA, BPH presents with complete aphasia that started an hour ago followed by altered mental status and aggressive behavior [facility] This is reported to me by EMS. Patient unable to provide me history. Patient arrives with a blank stare, blinking. Not following commands not able to speak. Unable to obtain an accurate neurological assessment on patient's arrival. Unable to obtain NIH stroke scale. Unable to obtain dedicated review of systems due to patient's mental status Related Data Home Medications ?Medication ?Instructions ?Recorded ?Confirmed acetaminophen 325 mg tablet 650 mg PO .Q12HRs 04/02/24 apixaban 5 mg tablet 5 mg PO BID 04/02/24 aspirin 81 mg chewable tablet 81 mg PO DAILY 04/02/24 cholecalciferol (vitamin D3) 25 25 mcg PO DAILY 04/02/24 mcg (1,000 unit) tablet ferrous fumarate 325 mg (106 mg 325 mg PO DAILY 04/02/24 iron) tablet finasteride 5 mg tablet 5 mg PO DAILY 04/02/24 glipizide 5 mg tablet 5 mg PO DAILY 04/02/24 insulin glargine 100 unit/mL (3 10 unit subcut QPM 04/02/24 mL) subcutaneous pen insulin lispro 100 unit/mL 10 unit subcut QPM 04/02/24 subcutaneous pen loperamide 2 mg tablet 2 mg PO Q3H PRN 04/02/24 melatonin 3 mg tablet 3 mg PO BEDTIME PRN 04/02/24 tamsulosin 0.4 mg capsule 0.8 mg PO DAILY 04/02/24 terazosin 5 mg capsule 5 mg PO BEDTIME 04/02/24 torsemide 20 mg tablet 20 mg PO DAILY 04/02/24 trazodone 50 mg tablet 50 mg PO DAILY 04/02/24 ipratropium 0.5 mg-albuterol 3 mg 3 ml inhalation Q4-6H PRN 07/03/24 (2.5 mg base)/3 mL nebulization soln Previous Rx's ?Medication ?Instructions ?Recorded polyethylene glycol 3350 17 gram 17 g PO BID #30 ea 04/01/24 oral powder packet (Miralax) sodium phosphates 19 gram-7 197 ml [place] DAILY 3 days #133 mL 04/01/24 gram/118 mL enema (Fleet Enema) sennosides 8.6 mg tablet (Natural 17.2 mg (2 x 8.6 mg) PO BEDTIME 04/22/24 Senna Laxative) constipation #60 tabs wheat dextrin 3 gram/3.5 gram oral 1 packet PO DAILY #28 ea 04/22/24 powder packet (Benefiber Clear Sugar Free(dextrin)) Allergies Allergy/AdvReac Type Severity Reaction Status Date / Time Unable to Assess Allergy Verified 05/24/24 12:59 Review of Systems Review of Systems: Yes Unobtainable due to mental status PMFSH Past Medical History Attestation statement: The following information was validated with the patient. 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 Atrial flutter Surgical History Status post ablation of atrial fibrillation Hx of appendectomy Family History Family History Mother Colon cancer Social History Social History Alcohol intake: former Patient Tobacco Use Status: Former Tobacco user Tobacco use type: Cigarette Advance Directives: Yes Advance Directives Information Provided: No Advance Directives on File: No Do you have a plan to hurt others: No Plan Physical Exam ED Vital Signs: Vital Signs - 24 hr 05/24/24 12:57 05/24/24 14:00 Temperature 97.5 F 98.1 F Pulse Rate 64 62 Respiratory Rate 18 16 Blood Pressure 122/63 127/52 L Pulse Oximetry 94 97 Oxygen Delivery Method Room Air Room Air BMI result Body Mass Index 32.5 vss Appearance: Patient awake. Unable to answer questions. Head: Normocephalic, atraumatic, no step-offs or deformities Eyes: Pupils equal, round and reactive to light.? ENT: Pharynx normal.? Neck: Normal inspection.? Neck supple.? CVS: Normal heart rate and rhythm.? Pulses normal.? Respiratory: No respiratory distress.? Breath sounds normal.? Abdomen: Soft and nontender.? Skin: Skin warm and dry.? Normal skin color.? Normal skin turgor.? Extremities: No lower extremity edema.? No calf ttp. Global weakness left AKA Neuro: Awake, unable to answer questions. Not following directions. Unable to obtain a neurological assessment NIH stroke scale unable to obtain Course Reevaluation(s) Reevaluation #1: CBC with a normocytic anemia at baseline. Normal platelets. Dry head CT with chronic inflammatory changes in the right frontal, middle ethmoid and maxillary sinuses. Front right lobe encephalomalacia with chronic white matter changes. CTA pending. Chemistry pending. UA pending Time: 13:33 Reevaluation #2: CTA with no LV 0. Chemistry unremarkable. Patient is however noted to have elevated LDL and cholesterol. UA with infection. Will start ceftriaxone. Plan hospital admission Time: 14:06 Medications Administered Discontinued Medications Generic Name Dose Route Start Last Admin Trade Name Freq PRN Reason Stop Dose Admin Iohexol 70 ml 05/24/24 13:20 05/24/24 13:20 Iohexol 350 Mg/Ml 100 Ml Infus..Btl IV 05/24/24 13:21 70 ml ONCE ONE Administration Medical Decision Making Medical Decision Making [facility] Narrative: 1300 84-year-old male presents with complete aphasia that started around noon followed by altered mental status and aggressive behavior. Last known well time around noon. [facility] On exam global weakness is noted. Unable to follow directions. Left AKA. Otherwise unremarkable. No signs of trauma. Stroke alert initiated due to patient's history and physical exam. NIH stroke scale unable to obtain as patient is not following direction History and physical exam concerning for possible intracranial hemorrhage/stroke. Less likely posterior stroke. Will also rule out LVO. Other differentials include catatonia, behavioral. Less likely meningitis or encephalitis. Plan stroke alert Differential Diagnosis Differential Diagnoses: The differential diagnosis associated with the presentation includes History and physical exam concerning for possible intracranial hemorrhage/stroke. Less likely posterior stroke. Will also rule out LVO. Other differentials include catatonia, behavioral. Less likely meningitis or encephalitis. Admission/Observation Consideration of admission/observation: Escalation of care including admission/observation considered Possible Consult Healthcare Provider Management of the patient was discussed with: Uat Tester (radiology normal dry head CT ) Lab Data MDM Lab Attestation statement: I reviewed the patient's lab results. 05/24/24 13:09 05/24/24 13:09 Labs: Lab Results 05/24/24 05/24/24 05/24/24 Range/Units 12:54 13:09 13:35 WBC 6.5 (4.8-10.8) X10*3/uL RBC 3.98 L (4.60-5.80) X10*6/uL Hgb 12.7 L (14.0-18.0) g/dl Hct 38.0 L (42.0-52.0) % MCV 95.5 (80.0-98.0) fL MCH 31.9 (27.0-33.0) pg MCHC 33.4 (31.0-36.0) g/dl RDW 13.1 (11.0-16.0) % Plt Count 160 (160-400) X10*3/uL MPV 9.2 L (9.4-12.4) fL Immature Gran % (Auto) 0.9 H (0.0-0.4) % Neut % (Auto) 42.1 L (45-73) % Lymph % (Auto) 40.6 H (20-40) % [place] % (Auto) 10.1 (2-11) % Eos % (Auto) 6.0 H (0-4) % Baso % (Auto) 0.3 (0-2) % Lymph # (Auto) 2.7 (1.2-4.9) X10*3/uL [place] # (Auto) 0.7 (0.1-1.2) X10*3/uL Eos # (Auto) 0.4 (0.0-0.4) X10*3/uL Baso # (Auto) 0.0 (0.0-0.2) X10*3/uL Abs Immat Gran (auto) 0.06 H (0.00-0.03) X10*3/uL Absolute Neuts (auto) 2.8 (2.0-8.3) x10*3/uL Absolute Nucleated RBC 0.000 (0.0-0.012) X10*3/uL Nucleated RBC % (auto) 0.0 (0.0-0.2) /100WBC PT 15.0 H (11.1-13.3) SEC INR 1.2 H (0.9-1.1) APTT 31.6 (26.0-36.8) SEC Sodium 140 (135-145) mmol/L Potassium 4.0 (3.3-5.1) mmol/L Chloride 106 (96-108) mmol/L Carbon Dioxide 25 (22-29) mmol/L Anion Gap 13 (12-20) BUN 37 H (9-16) mg/dL Creatinine 0.65 (0.5-1.4) mg/dL Estim Creat Clear Calc 102.7 Estimated GFR > 60 POC Glucose 150 H (60-115) mg/dL Random Glucose 148 H (60-115) mg/dL Calcium 9.0 (8.4-10.2) mg/dL Troponin I High Sens 24.5 (<3.5-35.0) ng/L Triglycerides 132 (<150) mg/dL Cholesterol 205 H (<200) mg/dL LDL Cholesterol, Calc 130 H (<100) mg/dL HDL Cholesterol 49 (>40) mg/dL Urine Color Yellow Urine Appearance Turbid Urine pH 5.5 (5.0-9.0) Ur Specific [place] 1.010 (1.005-1.025) Urine Protein Negative (Neg-Trace) mg/dL Urine Glucose (UA) Negative (Negative) mg/dL Urine Ketones Negative (Negative) mg/dL Urine Blood Small (1+) H (Negative) Urine Nitrite Negative (Negative) Ur Leukocyte Esterase Large (3+) H (Negative) Urine RBC 0-2 (0-2) /HPF Urine WBC >50 H (0-5) /HPF Urine WBC Clumps Present Ur Squamous Epith Cells 0-2 (0-2) /HPF Urine Bacteria 4+ (None Seen) Hyaline Casts 0-2 (0-2) /LPF Independent Interpretation I performed an independent interpretation of an: CT Scan ( CT/CT head for stroke IMPRESSION: No acute intracranial process seen. There is a right frontal lobe encephalomalacia with chronic white matter changes. Chronic inflammatory changes right frontal, middle ethmoid and maxillary sinuses.) Radiology Impression Discussion of test interpretation with radiology: I have reviewed the radiologist's reading. External Record Review External record reviewed: Office record, Outpatient record, Prior outpatient labs and Prior outpatient radiology Chronic Conditions Patient?s care impacted by: Other (dementia, bph, diabetes mellitus, atrial fibrillation, arrhythmias with pacemaker/AICD, muscular dystrophy-myotonic dystrophy type 2, left AKA) Critical Care Time Critical Care Time Critical Care Time: Yes Total Critical Care Time: 45 Attestation: I attest to this time spent taking care of the patient, obtaining history, physical, reviewing labs, imaging, speaking to my attending, specialist or hospitalist. Discharge Plan Discharge Clinical Impression: Altered mental status, UTI (urinary tract infection) Patient Disposition: Admitted As Inpatient Prescriptions: No Action Fleet Enema 19-7 gram/118 mL enema 197 ml WI DAILY 3 Days Qty: 133 0RF polyethylene glycol 3350 [Miralax] 17 gram powder in packet 17 g PO BID Qty: 30 0RF ipratropium-albuterol 0.5 mg-3 mg(2.5 mg base)/3 mL solution for nebulization 3 ml inhalation Q4-6H PRN Benefiber Clear SF (dextrin) 3 gram/3.5 gram powder in packet 1 packet PO DAILY Qty: 28 5RF Rx Instructions: mix into at least 4 oz water or juice before administering sennosides [Natural Senna Laxative] 8.6 mg tablet 17.2 mg PO BEDTIME Qty: 60 1RF finasteride 5 mg tablet 5 mg PO DAILY terazosin 5 mg capsule 5 mg PO BEDTIME insulin glargine 100 unit/mL (3 mL) insulin pen 10 unit subcut QPM insulin lispro 100 unit/mL insulin pen 10 unit subcut QPM acetaminophen 325 mg tablet 650 mg PO .Q12HRs apixaban 5 mg tablet 5 mg PO BID aspirin 81 mg tablet,chewable 81 mg PO DAILY cholecalciferol (vitamin D3) 25 mcg (1,000 unit) tablet 25 mcg PO DAILY ferrous fumarate 325 mg (106 mg iron) tablet 325 mg PO DAILY glipizide 5 mg tablet 5 mg PO DAILY melatonin 3 mg tablet 3 mg PO BEDTIME PRN tamsulosin 0.4 mg capsule 0.8 mg PO DAILY torsemide 20 mg tablet 20 mg PO DAILY trazodone 50 mg tablet 50 mg PO DAILY loperamide 2 mg tablet 2 mg PO Q3H PRN Print Language: Lao
[2024-05-24 13:01] LABS: Glucose, Whole Blood 150 mg/dL (60-115)
[2024-05-24 13:13] LABS: MANUAL DIFF FLAG NO
[2024-05-24 13:15] LABS: Basophils Percent Auto 0.3 % (0-2); Eosinophils Absolute Auto 0.4 X10*3/uL (0.0-0.4); Hemoglobin 12.7 g/dl (14.0-18.0); Imm Gran Abs Auto 0.06 X10*3/uL (0.00-0.03); Imm Gran Pct Auto 0.9 % (0.0-0.4); Lymphocytes Absolute Auto 2.7 X10*3/uL (1.2-4.9); Lymphocytes Percent Auto 40.6 % (20-40); Mean Corpuscular HGB Conc 33.4 g/dl (31.0-36.0); Mean Corpuscular Hemoglobin 31.9 pg (27.0-33.0); Mean Corpuscular Volume 95.5 fL (80.0-98.0); Mean Platelet Volume 9.2 fL (9.4-12.4); Monocytes Absolute Auto 0.7 X10*3/uL (0.1-1.2); Monocytes Percent Auto 10.1 % (2-11); Neutrophils Absolute Auto 2.8 x10*3/uL (2.0-8.3); Neutrophils Percent Auto 42.1 % (45-73); Platelet Count 160 X10*3/uL (160-400); Red Blood Count 3.98 X10*6/uL (4.60-5.80); Red Cell Distribution Width 13.1 % (11.0-16.0); White Blood Count 6.5 X10*3/uL (4.8-10.8)
[2024-05-24 13:20] LABS: INTERNATIONAL NORM RATIO 1.2 (0.9-1.1)
[2024-05-24] MEDS: iohexoL 350 MG/ML 100 ML INFUS..BTL 70 ML IV (13:20)
[2024-05-24 13:22] LABS: Partial Thromboplastin Time 31.6 SEC (26.0-36.8)
[2024-05-24 13:24] LABS: Stroke Lab Use COMPLETE
[2024-05-24 13:34] LABS: Anion Gap 13 (12-20); Blood Urea Nitrogen 37 mg/dL (9-16); Carbon Dioxide 25 mmol/L (22-29); Chloride 106 mmol/L (96-108); Cholesterol 205 mg/dL (<200); Creatinine Clr Calc Pharmacy 102.7; Estimated Glomerular Filt Rate > 60; Glucose Random 148 mg/dL (60-115); HDL Cholesterol 49 mg/dL (>40); LDL Cholesterol Calculated 130 mg/dL (<100); Sodium 140 mmol/L (135-145); Triglycerides 132 mg/dL (<150)
[2024-05-24 13:41] LABS: Troponin-I High Sensitivity 24.5 ng/L (<3.5-35.0)
[2024-05-24 13:43] LABS: Appearance Urine Turbid; Color Urine Yellow; Glucose Urine UA Negative (Negative); Leukocyte Esterase Urine Large (3+) (Negative); Nitrite Urine Negative (Negative); PH 5.5 (5.0-9.0); UMIC TRIGGER UACC YES; Urine Blood Small (1+) (Negative); Urine Ketones Negative (Negative); Urine Protein Negative (Neg-Trace)
--- NOTE | 2024-05-24 13:44 | PC.NURSE ---
pt returned from CT at this time. vss and up to date. nsr on the family welfare social work professor - paced w/ frequent PVCs. pt remains nonverbal/slightly aggressive. pt changed over into hospital attire. pt repositioned to comfort. 3:1 assist needed to prevent pt from hitting staff w/ UE. ekg performed by tech. urine obtained/sent to lab. otherwise pt calm at rest when no interventions are being completed. bedside for support. no sob/wob noted. respirations even/unlabored. plan of care ongoing.
[2024-05-24 14:00] VITALS: BP 127/52; PULSE 62; RESP 16; TEMP 36.7; O2SAT 97
[2024-05-24 14:01] LABS: Bacteria Urine 4+ (None Seen); Hyaline Casts Urine 0-2 /LPF (0-2); RBC Urine 0-2 /HPF (0-2); Squamous Epithelial Cell Urine 0-2 /HPF (0-2); UACC Culture Trigger YES; WBC Clumps Urine Present; WBC Urine >50 /HPF (0-5)
--- NOTE | 2024-05-24 14:03 | PC.NURSE ---
pt not noted to have any difficulties swallowing but continues to stay nonverbal. when attempting to do nursing swallow assessment, pt continuously spitting out water onto chin w/ his eyes closed. therefore, pt has failed the nursing swallow evaluation.
[2024-05-24] MEDS: cefTRIAXone sodium 1 GM in 0.9 % Sodium Chloride 50 ML IV (14:19)
--- NOTE | 2024-05-24 14:22 | PC.NURSE ---
abx administered per provider order. per provider order, no blood cultures needed at this time. remains bedside. admitting provider bedside/assessing pt/speaking w/ in regards to scan results/plan of care at this time.
--- NOTE | 2024-05-24 14:35 | P.HPHOSP_ITS ---
History of Present Illness Date of Service: 05/24/24 Chief Complaint: acute mental status changes The patient is a 84-year-old male with a past medical history of diabetes, AFib on Coumadin, arrhythmias with pacemaker and AICD, muscular dystrophy myotonic dystrophy type 2, left AKA, dementia with slow speech pattern who was sent to the emergency room from the [facility] for reported acute mental status changes and aggression towards staff. He arrived to the ED as a stroke alert. CT head and CTA of the head and neck are negative for large vessel occlusion. Patient is seen and examined in the emergency room. His is bedside. She reports last speaking with yesterday evening. She states that normally he is able to slowly converse but does have intermittent word-finding difficulties. Denies prior acute aggression as reported today. Does report prior urosepsis. Workup in the ED which included basic blood work and imaging studies revealed a UA suggestive of UTI. Head imaging is negative for acute findings. He remains aphasic with eyes closed and unable/unwilling to follow commands. He has been given IV ceftriaxone and will now be admitted for further care. Review of Systems 2 Review of Systems: Unable to complete review of systems due to mental status. 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 Atrial flutter Family History Mother Colon cancer Surgical History Status post ablation of atrial fibrillation Hx of appendectomy Social History Alcohol intake: former Patient Tobacco Use Status: Former Tobacco user Tobacco use type: Cigarette Advance Directives: Yes Advance Directives Information Provided: No Advance Directives on File: No Do you have a plan to hurt others: No Plan Meds Allergies Allergy/AdvReac Type Severity Reaction Status Date / Time Unable to Assess Allergy Verified 05/24/24 12:59 Active Medications: Current Medications Acetaminophen (Acetaminophen Supp 650 Mg Supp.Rect) 650 mg MO Q6H PRN PRN Reason: Pain, Mild (Pain Scale 1-3), fever or headache Enoxaparin Sodium (Enoxaparin Sodium 40 Mg/0.4 Ml Syringe) 40 mg SUBCUT Q24H [facility] Ondansetron HCl (Ondansetron Hcl 4 Mg/2 Ml Vial) 4 mg IVPUSH Q8H PRN PRN Reason: Nausea and Vomiting Sodium Chloride (0.9 % Sodium Chloride Flush 3 Ml Syringe) 3 ml IVFLUSH QSHIFT [facility] Home Medications ?Medication ?Instructions ?Recorded ?Confirmed ?Last Taken ?Type acetaminophen 325 mg tablet 650 mg PO Q12H 04/02/24 05/24/24 History apixaban 5 mg tablet 5 mg PO BID 04/02/24 05/23/24 History aspirin 81 mg chewable tablet 81 mg PO DAILY 04/02/24 05/24/24 History cholecalciferol (vitamin D3) 25 25 mcg PO DAILY 04/02/24 05/24/24 History mcg (1,000 unit) tablet ferrous fumarate 325 mg (106 mg 325 mg PO DAILY 04/02/24 05/24/24 History iron) tablet finasteride 5 mg tablet 5 mg PO DAILY 04/02/24 05/23/24 History glipizide 5 mg tablet 5 mg PO DAILY 04/02/24 05/24/24 History insulin glargine 100 unit/mL (3 13 unit subcut QPM 04/02/24 05/23/24 History mL) subcutaneous pen insulin lispro 100 unit/mL See Rx Instructions .Route .COMPLEX 04/02/24 Unknown History subcutaneous pen loperamide 2 mg tablet 2 mg PO Q3H PRN Diarrhea 04/02/24 Unknown History melatonin 3 mg tablet 3 mg PO BEDTIME PRN Insomnia 04/02/24 05/23/24 History tamsulosin 0.4 mg capsule 0.8 mg PO DAILY 04/02/24 Unknown History terazosin 5 mg capsule 5 mg PO BEDTIME 04/02/24 Unknown History torsemide 20 mg tablet 20 mg PO DAILY 04/02/24 Unknown History trazodone 50 mg tablet 50 mg PO DAILY 04/02/24 Unknown History ipratropium 0.5 mg-albuterol 3 mg 3 ml inhalation Q4-6H PRN Wheezing 04/22/24 Unknown History (2.5 mg base)/3 mL nebulization soln ascorbic acid (vitamin C) 500 mg 1 g PO DAILY 05/24/24 05/24/24 History tablet losartan 25 mg tablet 25 mg PO DAILY 05/24/24 05/24/24 History polyethylene glycol 3350 17 gram 17 g PO Q48H 05/24/24 Unknown History oral powder packet (Miralax) Physical Exam 2 Vital Signs and Narrative: Vital Signs: Last Vital Signs Temp 98.1 F 05/24/24 14:00 Pulse 62 05/24/24 14:00 Resp 16 05/24/24 14:00 BP 127/52 L 05/24/24 14:00 Pulse Ox 97 05/24/24 14:00 O2 Del Method Room Air 05/24/24 14:00 BMI result Body Mass Index 32.5 Const: Other: Resting in bed comfortably Eyes closed, does not open upon command Pupils are equal round and reactive Left AKA Abdomen soft nontender Lungs clear Regular heart sounds Remains nonverbal and does not follow commands Results Labs 05/24/24 13:09 05/24/24 13:09 Labs: Laboratory Results - last 24 hr 05/24/24 05/24/24 05/24/24 12:54 13:09 13:35 MCV 95.5 MCH 31.9 MCHC 33.4 RDW 13.1 Plt Count 160 MPV 9.2 L Immature Gran % (Auto) 0.9 H Neut % (Auto) 42.1 L Lymph % (Auto) 40.6 H [place] % (Auto) 10.1 Eos % (Auto) 6.0 H Baso % (Auto) 0.3 Lymph # (Auto) 2.7 [place] # (Auto) 0.7 Eos # (Auto) 0.4 Baso # (Auto) 0.0 Abs Immat Gran (auto) 0.06 H Absolute Neuts (auto) 2.8 Absolute Nucleated RBC 0.000 Nucleated RBC % (auto) 0.0 PT 15.0 H INR 1.2 H APTT 31.6 Anion Gap 13 Estim Creat Clear Calc 102.7 Estimated GFR > 60 POC Glucose 150 H Random Glucose 148 H Calcium 9.0 Troponin I High Sens 24.5 Triglycerides 132 Cholesterol 205 H LDL Cholesterol, Calc 130 H HDL Cholesterol 49 Urine Color Yellow Urine Appearance Turbid Urine pH 5.5 Ur Specific [place] 1.010 Urine Protein Negative Urine Glucose (UA) Negative Urine Ketones Negative Urine Blood Small (1+) H Urine Nitrite Negative Ur Leukocyte Esterase Large (3+) H Urine RBC 0-2 Urine WBC >50 H Urine WBC Clumps Present Ur Squamous Epith Cells 0-2 Urine Bacteria 4+ Hyaline Casts 0-2 Imaging Radiologist's Impressions: Impressions Head CT 05/24/24 13:04 IMPRESSION: No acute intracranial process seen. There is a right frontal lobe encephalomalacia with chronic white matter changes. Chronic inflammatory changes right frontal, middle ethmoid and maxillary sinuses. This critical result was discussed with EVENS Lacey at 1:2 PM on 05/24/2024. It was ascertained that the content and urgency of the report was understood at the time of direct communication. Head/Neck CTA 05/24/24 13:31 IMPRESSION: -CTA head demonstrates no large vessel occlusion, saccular aneurysm, or dissection. -CTA and neck demonstrates complete focal stenosis of the left vertebral artery origin. 30% focal stenosis of the left cervical ICA. Otherwise, no hemodynamically significant stenosis, dissection, or aneurysm. Partially imaged right pleural effusion with partial right lower lobe collapse. Assessment and Plan (1) UTI (urinary tract infection): Status: Acute (2) Altered mental status: Status: Acute Plan 84-year-old male with a past medical history of diabetes, muscular dystrophy, cardiac arrhythmias status post pacemaker and AICD, dementia with slow speech pattern who presents to the emergency room with acute onset mental status changes and aggressive behavior towards staff at the [facility]. He was found to have a UTI and concerns for acute stroke. He will be admitted for further workup. 1. Acute toxic/metabolic encephalopathy Question related to acute CVA versus UTI 2. UTI IV ceftriaxone Follow cultures 3. Question acute CVA Patient with ongoing aphasia, however does have a reported history of dementia with slow speech Has failed nursing bedside swallow eval, we will keep NPO and get formal swallow eval Neurology consult 3. History of AFib Currently EKG was V paced rhythm Unable to take Eliquis due to NPO, will treat with subcu Lovenox until cleared by speech 4. DM hold long acting check POC and sliding scale if needed 5. HTN hold bp meds today Med rec pending -- will hold oral medications until cleared by speech DNR/DNI Patient with acute mental status changes with UTI as well as suspected stroke, therefore expected to require 2 midnights in the hospital hence will be admitted as inpatient. Quality Stroke Does the patient have a stroke diagnosis?: No VTE Prior VTE?: No VTE Risk Level:: Medical - moderate - high VTE Device Contraindication: N/A - Device Ordered VTE Drug Contraindication: N/A - Med Ordered
[2024-05-24 15:05] LABS: Prothrombin Time Whole Bld POC 13.6 sec (11.1-13.5); ~PT, ~INR - Anti Coag Clinic 1.1 (0.9-1.1)
[2024-05-24] MEDS: Dextrose 5 % and 0.9 % NaCl 1,000 ML 80 ML IVCONT (15:23)
--- NOTE | 2024-05-24 15:30 | PHA.MEDREC ---
Pharmacy Consult ? Medication Reconciliation Pharmacy has completed the medication reconciliation.
[2024-05-24 16:45] VITALS: BP 119/48; PULSE 67; RESP 14; O2SAT 95
[2024-05-24 17:10] VITALS: BP 127/49; PULSE 61; RESP 14; TEMP 36.7; O2SAT 97
--- NOTE | 2024-05-24 17:11 | PC.NURSE ---
pt no longer aphasic and is now currently sitting upright awake. pt conversating/answering questions but still seems to remain disoriented. pt unable to answer questions/follow commands appropriately. otherwise neuros intact. no slur in speech noted. no facial droop. face symmetrical. vss and up to date aside from being slightly hypotensive. D5NS continues to infuse at 80mls/hr - will reassess BP. pt continues to rest in bed in no apparent distress. respirations remain even/unlabored. pt waiting for bed assignment at this time. plan of care ongoing. call gaytan placed within reach.
[2024-05-24 18:22] LABS: Glucose, Whole Blood 110 mg/dL (60-115)
--- NOTE | 2024-05-24 19:38 | PC.NURSE ---
Assumed care of pt. Pt lying on stretcher, at bedside. pt pleasantly confused, VSS, admission bed available, pending report completion.
[2024-05-24 20:45] VITALS: BP 143/67; PULSE 66; RESP 20; TEMP 36.5; O2SAT 94
[2024-05-24] MEDS: 0.9 % Sodium Chloride Flush 3 ML SYRINGE IVFLUSH (22:46)
[2024-05-24] MEDS: Enoxaparin Sodium 30 MG/0.3 ML SYRINGE 100 MG SUBCUT (22:46)
[2024-05-24 23:39] VITALS: BP 147/70; PULSE 68; RESP 18; TEMP 36.9; O2SAT 98
--- NOTE | 2024-05-25 01:58 | HO.SKINPHOTO ---
Addendum entered by Violet Nice RN 05/25/24 02:05: Admission skin photos. Original Note:
[2024-05-25 03:44] VITALS: BP 134/62; PULSE 63; RESP 18; TEMP 36.3; O2SAT 96
[2024-05-25] MEDS: Dextrose 5 % and 0.9 % NaCl 1,000 ML 80 ML IVCONT ×2 (06:43→16:26)
--- NOTE | 2024-05-25 07:00 | PC.NURSE ---
Patient is alert to self not oriented to self , place or date. Patient is 2 assist turn and reposition in the bed he can get aggressive and combative with care .Lung sounds are clear he is on room. R BKA , he is incontinent of bowels and bladder care provided. IV access to the R arm , IVF going per order.Patient calls out hello and unable to make his needs known. Camera in place, bed alarm on . Call gaytan is present hourly rounding initiated please see further documentation for more details.
[2024-05-25 07:08] LABS: Anion Gap 12 (12-20); Blood Urea Nitrogen 29 mg/dL (9-16); Calcium 9.4 mg/dL (8.4-10.2); Carbon Dioxide 27 mmol/L (22-29); Chloride 107 mmol/L (96-108); Creatinine Clr Calc Pharmacy 109.4; Estimated Glomerular Filt Rate > 60; Glucose Random 114 mg/dL (60-115); Potassium 4.1 mmol/L (3.3-5.1); Sodium 142 mmol/L (135-145)
[2024-05-25 07:20] LABS: Glucose, Whole Blood 121 mg/dL (60-115)
--- NOTE | 2024-05-25 07:41 | HO.PM.IMPN ---
Subjective Subjective Date of Service: 05/25/24 Interval History: Seen in follow up for UTI, encephalopathy Interval history: Pleasantly confused, oriented to self only. VSS Review of Systems Review of Systems: Yes all other systems are reviewed and are negative Physical Exam Vital Signs: Vital Signs: Last Vital Signs Temp 97.4 F 05/25/24 03:44 Pulse 63 05/25/24 03:44 Resp 18 05/25/24 03:44 BP 134/62 05/25/24 03:44 Pulse Ox 96 05/25/24 03:44 O2 Del Method Room Air 05/25/24 03:44 BMI result Body Mass Index 32.5 Constitutional - Awake and Alert, No apparent distress Eyes - PERRLA, EOMI Cardiovascular - S1S2, RRR, No edema Respiratory - Normal lung expansion, Normal respiratory effort, No respiratory distress, CTA bilaterally Gastrointestinal - NT / ND; +BS; No rebound or guarding Extremities - no calf tenderness bilaterally, no swelling Skin - Warm/Dry Neurological - Alert & oriented x3 Psychological - Appropriate affect Objective Data Active Medications Acetaminophen (Acetaminophen Supp 650 Mg Supp.Rect) 650 mg [place] Q6H PRN PRN Reason: Pain, Mild (Pain Scale 1-3), fever or headache Enoxaparin Sodium (Enoxaparin Sodium 30 Mg/0.3 Ml Syringe) 100 mg SUBCUT Q12H [facility] Last Admin: 05/24/24 22:46 Dose: 100 mg Documented By: GONZALO Dextrose/Sodium Chloride (D5ns) 1,000 mls @ 80 mls/hr IVCONT .[id number] [facility] Last Admin: 05/25/24 06:43 Dose: 80 mls/hr Documented By: GONZALO Ceftriaxone Sodium 1 gm/ (Sodium Chloride) 50 mls @ 100 mls/hr IV Q24H [facility] Ondansetron HCl (Ondansetron Hcl 4 Mg/2 Ml Vial) 4 mg IVPUSH Q8H PRN PRN Reason: Nausea and Vomiting Sodium Chloride (0.9 % Sodium Chloride Flush 3 Ml Syringe) 3 ml IVFLUSH QSHIFT [facility] Last Admin: 05/24/24 22:46 Dose: 3 ml Documented By: GONZALO Labs 05/24/24 13:09 05/25/24 06:29 Labs: Laboratory Results - last 24 hr 0805/24/24 05/24/24 12:54 13:09 13:35 MCV 95.5 MCH 31.9 MCHC 33.4 RDW 13.1 Plt Count 160 MPV 9.2 L Immature Gran % (Auto) 0.9 H Neut % (Auto) 42.1 L Lymph % (Auto) 40.6 H Forsyth % (Auto) 10.1 Eos % (Auto) 6.0 H Baso % (Auto) 0.3 Lymph # (Auto) 2.7 Forsyth # (Auto) 0.7 Eos # (Auto) 0.4 Baso # (Auto) 0.0 Abs Immat Gran (auto) 0.06 H Absolute Neuts (auto) 2.8 Absolute Nucleated RBC 0.000 Nucleated RBC % (auto) 0.0 PT 15.0 H Whole Blood PT 13.6 H INR 1.2 H Whole Blood INR 1.1 APTT 31.6 Anion Gap 13 Estim Creat Clear Calc 102.7 Estimated GFR > 60 POC Glucose 150 H Random Glucose 148 H Calcium 9.0 Troponin I High Sens 24.5 Triglycerides 132 Cholesterol 205 H LDL Cholesterol, Calc 130 H HDL Cholesterol 49 Urine Color Yellow Urine Appearance Turbid Urine pH 5.5 Ur Specific Laurier 1.010 Urine Protein Negative Urine Glucose (UA) Negative Urine Ketones Negative Urine Blood Small (1+) H Urine Nitrite Negative Ur Leukocyte Esterase Large (3+) H Urine RBC 0-2 Urine WBC >50 H Urine WBC Clumps Present Ur Squamous Epith Cells 0-2 Urine Bacteria 4+ Hyaline Casts 0-2 05/24/24 05/25/24 05/25/24 18:19 06:29 07:15 MCV MCH MCHC RDW Plt Count MPV Immature Gran % (Auto) Neut % (Auto) Lymph % (Auto) Forsyth % (Auto) Eos % (Auto) Baso % (Auto) Lymph # (Auto) Forsyth # (Auto) Eos # (Auto) Baso # (Auto) Abs Immat Gran (auto) Absolute Neuts (auto) Absolute Nucleated RBC Nucleated RBC % (auto) PT Whole Blood PT INR Whole Blood INR APTT Anion Gap 12 Estim Creat Clear Calc 109.4 Estimated GFR > 60 POC Glucose 110 121 H Random Glucose 114 Calcium 9.4 Troponin I High Sens Triglycerides Cholesterol LDL Cholesterol, Calc HDL Cholesterol Urine Color Urine Appearance Urine pH Ur Specific Laurier Urine Protein Urine Glucose (UA) Urine Ketones Urine Blood Urine Nitrite Ur Leukocyte Esterase Urine RBC Urine WBC Urine WBC Clumps Ur Squamous Epith Cells Urine Bacteria Hyaline Casts Assessment and Plan (1) UTI (urinary tract infection): Status: Acute (2) Altered mental status: Status: Acute Plan 84-year-old male with a past medical history of diabetes, muscular dystrophy, cardiac arrhythmias status post pacemaker and AICD, dementia with slow speech pattern who presents to the emergency room with acute onset mental status changes and aggressive behavior towards staff at the [place] [facility]. He was found to have a UTI and concerns for acute stroke. He will be admitted for further workup. #Acute metabolic encephalopathy most liekly r/t infection continue abx evaluated by neurology, less likely CVA more likely acute metabolic encephalopathy related to UTI with underlying degenerative dementia #Acute UTI IV ceftriaxone (initiated 05/24) Follow cultures. 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
[2024-05-25 08:00] VITALS: BP 136/66; PULSE 73; RESP 20; TEMP 36.3; O2SAT 94
[2024-05-25] MEDS: 0.9 % Sodium Chloride Flush 3 ML SYRINGE IVFLUSH ×3 (09:15→21:37)
[2024-05-25] MEDS: Enoxaparin Sodium 100 MG/ML SYRINGE SUBCUT (09:15)
[2024-05-25 11:30] LABS: Glucose, Whole Blood 163 mg/dL (60-115)
[2024-05-25 12:00] VITALS: BP 153/70; PULSE 110; RESP 20; TEMP 36.4; O2SAT 95
--- NOTE | 2024-05-25 12:05 | HO.WOUND ---
Wound Consult: Initial 84yr old?Male admitted to [facility] on 05/24/24 14:32 - See progress notes and H&P for detailed history.? Wound consult placed for Sacrum and Bilateral Ischium POA.? Patient agreeable to assessment and photo documentation.? Sacrum Etiology: ?DTI in Evolution ?Present on Admission Wound Bed: dark maroon purple nonblanchable tissue - areas of partial thickness tissue loss Drainage / Odor: serosang noted on bed ped Edges: ? irregular Malinda wound: MASD - ? No Induration, Fluctuance or Warmth noted Pain: pt denies pain Goals of Treatment: ? Barrier cream to protect from moisture and friction and allow for moist wound healing. Off load pressure Bilateral Ischium Etiology: ??MASD with Friction - Present on Admission Wound Bed: hyperpigmented tissue with areas of tissue loss over bony prominences Drainage / Odor: None noted at this time Edges: ? irregular Malinda wound: MASD - No Induration, Fluctuance or Warmth noted Pain: denies Goals of Treatment: ? Barrier cream to protect from moisture and friction and allow for moist wound healing. Off load pressure Off loading with pillows in place, ALISA mattress in place, Male Purewick initiated. Recommendations: 1. Turn and Reposition every 2 hours and as needed for patient comfort.? Use pillows or wedges to support off loading positions. 2. Off Load all bony prominences with use of pillows and heel boots if needed.? Apply Preventative foams where needed. ? 3. Monitor for incontinence and moisture control, use barrier creams when needed for prevention and treatment. 4. Provide adequate and supplemental nutrition.? 5. Continue low air loss mattress. 6. When applicable maintain blood glucose levels per Providers order. 7. Sacrum and Bilateral Ischium - Off Load Pressure - Cleanse with PH balance spray or wipes, pat dry. ?Apply thin layer of Triad to wound bed - only pat and dab no scrub and rub when soiling occurs. Reapply thin layer PRN after each episode of incontinence. Re-consult wound care Nurse for wound deterioration or wound changes.
[2024-05-25 12:08] VITALS: BMI 32.5
--- NOTE | 2024-05-25 12:10 | MHC.CLN ---
PT WITH INCREASED NUTRITION RISK R/T PRESSURE INJURY PT IS CURRENTLY NPO WHEN DIET ADVANCES, RECOMMEND ADDING HIGH PROTEIN PO SUPPLEMENT TO PROMOTE WOUND HEALING ENSURE MAX BID TO PROVIDE 300KCALS, 60G PROTEIN FOLLOWING FOR DIET ADVANCEMENT SEE ALSO FULL CLINICAL NUTRITION ASSESSMENT
[2024-05-25] MEDS: Losartan Potassium 25 MG TABLET PO (12:40)
[2024-05-25] MEDS: Torsemide 20 MG TABLET PO (12:40)
[2024-05-25] MEDS: Finasteride 5 MG TABLET PO (12:40)
[2024-05-25] MEDS: Tamsulosin HCL 0.4 MG CAPSULE 0.8 MG PO (12:40)
[2024-05-25] MEDS: Insulin Glargine,Hum.rec.anlog 100 UNIT/ML 10 ML VIAL 10 UNIT SUBCUT ×2 (12:41→21:32)
[2024-05-25] MEDS: polyethylene glycoL 3350 17 GM POWD.PACK PO (12:41)
--- NOTE | 2024-05-25 12:41 | P.CNNE_ITS ---
History of Present Illness Data of Consult Service Date: 05/25/24 Primary Care Provider: Dima Murphy MD HPI Reason for consult: encephalopathy 84 years old man with dementia [facility] in mental status. He was initially evaluated for possible stroke. No acute lesion on imaging was found. He was unable to provide any history. There was no evidence of any recent seizure. He was being treated for UTI. 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 Atrial flutter Family History Family History Mother Colon cancer Surgical History Surgical History Status post ablation of atrial fibrillation Hx of appendectomy Social History Social History Alcohol intake: former Patient Tobacco Use Status: Former Tobacco user Tobacco use type: Cigarette Meds Allergies Allergy/AdvReac Type Severity Reaction Status Date / Time Unable to Assess Allergy Verified 05/24/24 12:59 Active Medications: Current Medications Acetaminophen (Acetaminophen Supp 650 Mg Supp.Rect) 650 mg NJ Q6H PRN PRN Reason: Pain, Mild (Pain Scale 1-3), fever or headache Albuterol/Ipratropium (Albuterol/Iprat 2.5/0.5mg 3 Ml Ampul.Neb) 3 ml INHALE RQ4H PRN PRN Reason: Wheezing Apixaban (Apixaban 5 Mg Tablet) 5 mg PO BID KELECHI Ascorbic Acid (Ascorbic Acid 500 Mg Tablet) 1,000 mg PO DAILY KELECHI Aspirin (Aspirin 81 Mg Tab.Chew) 81 mg PO DAILY KELECHI Doxazosin Mesylate (Doxazosin Mesylate 2 Mg Tablet) 4 mg PO BEDTIME KELECHI Ferrous Sulfate (Ferrous Sulfate 324 Mg Tablet.Dr) 324 mg PO DAILY KELECHI Finasteride (Finasteride 5 Mg Tablet) 5 mg PO DAILY KELECHI Glucose (Glucose Gel 15 Gm Gel..Gram.) 15 gm PO Q15M PRN; Protocol PRN Reason: per Hypoglycemia Standing Ord. Dextrose/Sodium Chloride (D5ns) 1,000 mls @ 80 mls/hr IVCONT .[id number] [facility] Last Admin: 05/25/24 06:43 Dose: 80 mls/hr Ceftriaxone Sodium 1 gm/ (Sodium Chloride) 50 mls @ 100 mls/hr IV Q24H [facility] Dextrose (D10) 250 mls @ 750 mls/hr IV Q15M PRN; Protocol PRN Reason: per Hypoglycemia Standing Ord. Insulin Glargine (Insulin Glargine,Hum.Rec.Anlog 100 Unit/Ml 10 Ml Vial) 10 unit SUBCUT BEDTIME [facility] Insulin Human Lispro (Insulin Lispro 100 Unit/Ml 3 Ml Vial) 0 unit SUBCUT QIDACHS [facility]; Protocol Loperamide HCl (Loperamide Hcl 2 Mg Capsule) 2 mg PO Q3H PRN PRN Reason: Diarrhea Losartan Potassium (Losartan Potassium 25 Mg Tablet) 25 mg PO DAILY [facility]; Protocol Melatonin (Melatonin 3 Mg Tablet) 3 mg PO BEDTIME PRN PRN Reason: Insomnia Ondansetron HCl (Ondansetron Hcl 4 Mg/2 Ml Vial) 4 mg IVPUSH Q8H PRN PRN Reason: Nausea and Vomiting Polyethylene Glycol (Polyethylene Glycol 3350 17 Gm Powd.Pack) 17 gm PO Q48H [facility] Senna (Sennosides 8.6 Mg Tablet) 17.2 mg PO BEDTIME [facility] Sodium Biphosphate/Sodium Phosphate (Sodium Phosphate,Wythe-Dibasic 133 Ml Enema) 133 ml NJ DAILY [facility] Sodium Chloride (0.9 % Sodium Chloride Flush 3 Ml Syringe) 3 ml IVFLUSH QSHIFT [facility] Last Admin: 05/25/24 09:15 Dose: 3 ml Tamsulosin HCl (Tamsulosin Hcl 0.4 Mg Capsule) 0.8 mg PO DAILY [facility] Torsemide (Torsemide 20 Mg Tablet) 20 mg PO DAILY [facility]; Protocol Trazodone HCl (Trazodone Hcl 50 Mg Tablet) 50 mg PO DAILY [facility] Vitamin D (Cholecalciferol (Vitamin D3) 25 Mcg Tablet) 25 mcg PO DAILY [facility] Home Medications ?Medication ?Instructions ?Recorded ?Confirmed ?Last Taken ?Type acetaminophen 325 mg tablet 650 mg PO Q12H 0605/24/24 05/24/24 History apixaban 5 mg tablet 5 mg PO BID 04/02/24 05/24/24 05/23/24 History aspirin 81 mg chewable tablet 81 mg PO DAILY 04/02/24 05/24/24 05/24/24 History cholecalciferol (vitamin D3) 25 25 mcg PO DAILY 04/02/24 05/24/24 05/24/24 History mcg (1,000 unit) tablet ferrous fumarate 325 mg (106 mg 325 mg PO DAILY 04/02/24 05/24/24 05/24/24 History iron) tablet finasteride 5 mg tablet 5 mg PO DAILY 04/02/24 05/24/24 05/23/24 History glipizide 5 mg tablet 5 mg PO DAILY 04/02/24 05/24/24 05/24/24 History insulin glargine 100 unit/mL (3 13 unit subcut QPM 04/02/24 05/24/24 05/23/24 History mL) subcutaneous pen insulin lispro 100 unit/mL See Rx Instructions .Route .COMPLEX 04/02/24 05/24/24 Unknown History subcutaneous pen loperamide 2 mg tablet 2 mg PO Q3H PRN Diarrhea 04/02/24 05/24/24 Unknown History melatonin 3 mg tablet 3 mg PO BEDTIME PRN Insomnia 04/02/24 05/24/24 05/23/24 History tamsulosin 0.4 mg capsule 0.8 mg PO DAILY 04/02/24 05/24/24 05/24/24 History terazosin 5 mg capsule 5 mg PO BEDTIME 04/02/24 05/24/24 05/23/24 History torsemide 20 mg tablet 20 mg PO DAILY 04/02/24 05/24/24 05/24/24 History trazodone 50 mg tablet 50 mg PO DAILY 04/02/24 05/24/24 05/23/24 History ipratropium 0.5 mg-albuterol 3 mg 3 ml inhalation Q4-6H PRN Wheezing 04/22/24 05/24/24 Unknown History (2.5 mg base)/3 mL nebulization soln ascorbic acid (vitamin C) 500 mg 1 g PO DAILY 05/24/24 05/24/24 05/24/24 History tablet losartan 25 mg tablet 25 mg PO DAILY 05/24/24 05/24/24 05/24/24 History polyethylene glycol 3350 17 gram 17 g PO Q48H 05/24/24 05/24/24 Unknown History oral powder packet (Miralax) Physical Exam 2 Vital Signs: Vital Signs: Last Vital Signs Temp 97.5 F 05/25/24 12:00 Pulse 110 H 05/25/24 12:00 Resp 20 05/25/24 12:00 BP 153/70 H 05/25/24 12:00 Pulse Ox 95 05/25/24 12:00 O2 Del Method Room Air 05/25/24 12:00 BMI result Body Mass Index 32.5 Neuro: Other: Alert and awake looking around but did not know where he was. He did not follow commands consistently even one-step commands. There was significant problem with his vision specially on the left side. There was mild right-sided facial flatness. He was using his upper extremities. Left leg was partly amputated. Exam was limited Results Labs 05/24/24 13:09 05/25/24 06:29 Labs: Short CBC 05/24/24 Range/Units 13:09 WBC 6.5 (4.8-10.8) X10*3/uL Hgb 12.7 L (14.0-18.0) g/dl Hct 38.0 L (42.0-52.0) % Plt Count 160 (160-400) X10*3/uL BMP 05/24/24 05/25/24 13:09 06:29 Sodium 140 142 Potassium 4.0 4.1 Chloride 106 107 Carbon Dioxide 25 27 BUN 37 H 29 H Creatinine 0.65 0.61 Calcium 9.0 9.4 Urine 05/24/24 Range/Units 13:35 Urine Color Yellow Urine Appearance Turbid Urine pH 5.5 (5.0-9.0) Ur Specific Harmans 1.010 (1.005-1.025) Urine Protein Negative (Neg-Trace) mg/dL Urine Glucose (UA) Negative (Negative) mg/dL Head CT revealed quite severe generalize central and cortical atrophy. CTA did not reveal any significant anterior circulation lesion. Left vertebral focal stenosis was noted. Microbiology Microbiology Results: Microbiology 05/24/24 Unknown Urine clean catch - Clean Catch Midstream Urine Culture - Preliminary Gram negative adonis Assessment and Plan (1) Altered mental status: Qualifiers: Altered mental status type: disorientation Qualified Code(s): R41.0 - Disorientation, unspecified Status: Acute 84 years old man who probably has severe underlying degenerative dementia is suffering from metabolic toxic encephalopathy related to UTI. As far as brain or vascular disease is concerned, conservative approach is recommended as he would not qualify for any significant intervention. Procedures Date of Service Date of Service: 05/25/24
--- NOTE | 2024-05-25 13:09 | MHC.CM.PN ---
IMM 05/25. Pt with dx: dementia, CM intake completed with pts Rosario, present at bedside. Pt is a LTC resident of [facility] in [place] where he receives Palliative Care services. Pt uses a wheelchair and a jorge a lift. Pt will return to the 's home via BLS once medically cleared. Pts Rosario states she is his HCP, copy requested. PCP: Dr. Dima Murphy
--- NOTE | 2024-05-25 13:34 | MHC.SL.SWA ---
Speech Pathologist Impression: Risk of aspiration, oral phase dysphagia Risk of Aspiration Due to: Neurological Condition Reduced Cognition Dysphasia Diet Status:UPGRADE from NPO to baseline REGULAR/THIN Liquid Consistency and Strategies for Safe Swallow: Liquid Intake Recommendation: Thin Liquid Intake Strategies: Small Sips No Straws Solid Food Consistency: Dietary Recommendations: Regular Additional Modifications to Solid Foods: Patient seen for bedside swallow eval. Mildly slowed chewing, all other aspects of swallow WFL, no other difficulties noted and good oral clearance. Patient is able to feed self, but will need assistance sitting up and with set up of meal tray. Recommend REGULAR texture solids and THIN liquids, pills WHOLE in PUREE, with periodic supervision. This is patient's baseline per nursing staff at the [facility]. Oral Medication Intake: Whole with Puree Please contact the pharmacy regarding appropriate crushable or liquid drug formulations that are available whenever modified delivery is recommended. Compensatory Strategies and Precautions to be Taken for Safe Swallow: Sitting Upright (90 deg) No Straw Small Bites and Sips Alternate Liquids/Solids Rate of Ingestion Change Supervision While Eating and Drinking for Safe Swallow: Intermittent Supervision Recommendation for Speech: NA:Typical Evaluation Comment: Recommend continue on patient's baseline diet. Please re-refer with any changes or if AUTO BODY REPAIR TECHNICIAN can be of further assistance. Frequency/Duration: Date Range for Service Req: Timeline to reassess: Regional Engagement Consultant Clinican/Clinical Fellow: No Supervisory Statement: I have reviewed and agree with the student/clinical fellow's documentation: N/A Speech Language Pathologist: Evelyn Sherwood M.A., [facility]-AUTO BODY REPAIR TECHNICIAN
[2024-05-25] MEDS: cefTRIAXone sodium 1 GM in 0.9 % Sodium Chloride 50 ML IV (15:48)
[2024-05-25 16:00] VITALS: BP 112/56; PULSE 66; RESP 20; TEMP 36.6; O2SAT 96
[2024-05-25 16:36] LABS: Glucose, Whole Blood 197 mg/dL (60-115)
[2024-05-25] MEDS: Insulin Lispro 100 UNIT/ML 3 ML VIAL SUBCUT ×2 (16:40→21:32)
[2024-05-25 20:00] VITALS: BP 147/67; PULSE 60; RESP 20; TEMP 36.7; O2SAT 94
[2024-05-25 20:06] LABS: Glucose, Whole Blood 161 mg/dL (60-115)
[2024-05-25] MEDS: Doxazosin Mesylate 2 MG TABLET 4 MG PO (21:32)
[2024-05-25 23:38] VITALS: BP 129/64; PULSE 60; RESP 20; TEMP 37; O2SAT 97
[2024-05-26 03:35] VITALS: PULSE 66; RESP 20; TEMP 36.7; O2SAT 94
[2024-05-26 06:13] LABS: MANUAL DIFF FLAG NO
[2024-05-26 06:17] LABS: Basophils Percent Auto 0.4 % (0-2); Eosinophils Absolute Auto 0.3 X10*3/uL (0.0-0.4); Eosinophils Percent Auto 6.5 % (0-4); Hematocrit 35.8 % (42.0-52.0); Hemoglobin 11.7 g/dl (14.0-18.0); Imm Gran Abs Auto 0.03 X10*3/uL (0.00-0.03); Imm Gran Pct Auto 0.7 % (0.0-0.4); Lymphocytes Absolute Auto 1.7 X10*3/uL (1.2-4.9); Lymphocytes Percent Auto 38.9 % (20-40); Mean Corpuscular HGB Conc 32.7 g/dl (31.0-36.0); Mean Corpuscular Hemoglobin 31.6 pg (27.0-33.0); Mean Corpuscular Volume 96.8 fL (80.0-98.0); Mean Platelet Volume 9.5 fL (9.4-12.4); Monocytes Absolute Auto 0.6 X10*3/uL (0.1-1.2); Monocytes Percent Auto 12.3 % (2-11); Neutrophils Absolute Auto 1.8 x10*3/uL (2.0-8.3); Neutrophils Percent Auto 41.2 % (45-73); Platelet Count 151 X10*3/uL (160-400); Red Cell Distribution Width 13.1 % (11.0-16.0); White Blood Count 4.5 X10*3/uL (4.8-10.8)
[2024-05-26] MEDS: Dextrose 5 % and 0.9 % NaCl 1,000 ML 80 ML IVCONT (06:25)
[2024-05-26] MEDS: Metoprolol Tartrate 5 MG/5 ML VIAL IVPUSH (06:25)
[2024-05-26 06:40] LABS: Anion Gap 11 (12-20); Blood Urea Nitrogen 29 mg/dL (9-16); Calcium 9.1 mg/dL (8.4-10.2); Carbon Dioxide 25 mmol/L (22-29); Chloride 109 mmol/L (96-108); Creatinine Clr Calc Pharmacy 107.7; Estimated Glomerular Filt Rate > 60; Glucose Random 103 mg/dL (60-115); Potassium 3.7 mmol/L (3.3-5.1); Sodium 141 mmol/L (135-145)
[2024-05-26 07:16] VITALS: BP 135/63; PULSE 64; RESP 18; TEMP 36.3; O2SAT 94
[2024-05-26 07:26] LABS: Glucose, Whole Blood 111 mg/dL (60-115)
[2024-05-26] MEDS: Torsemide 20 MG TABLET PO (08:36)
[2024-05-26] MEDS: traZODone HCL 50 MG TABLET PO (08:36)
[2024-05-26] MEDS: Ferrous Sulfate 324 MG TABLET.DR PO (08:37)
[2024-05-26] MEDS: Ascorbic Acid 500 MG TABLET 1000 MG PO (08:37)
[2024-05-26] MEDS: Aspirin 81 MG TAB.CHEW PO (08:37)
[2024-05-26] MEDS: Cholecalciferol (Vitamin D3) 25 MCG TABLET PO (08:37)
[2024-05-26] MEDS: Apixaban 5 MG TABLET PO ×2 (08:37→20:19)
[2024-05-26] MEDS: Tamsulosin HCL 0.4 MG CAPSULE 0.8 MG PO (08:37)
[2024-05-26] MEDS: Losartan Potassium 25 MG TABLET PO (08:37)
[2024-05-26] MEDS: Finasteride 5 MG TABLET PO (08:38)
[2024-05-26] MEDS: 0.9 % Sodium Chloride Flush 3 ML SYRINGE IVFLUSH ×2 (08:38→20:35)
[2024-05-26 11:01] VITALS: BP 146/70; PULSE 67; RESP 18; TEMP 36.3; O2SAT 96
[2024-05-26 11:20] LABS: Glucose, Whole Blood 204 mg/dL (60-115)
[2024-05-26] MEDS: Insulin Lispro 100 UNIT/ML 3 ML VIAL SUBCUT ×3 (12:30→20:35)
[2024-05-26 14:53] VITALS: BP 128/81; PULSE 65; RESP 18; TEMP 36.6; O2SAT 97
[2024-05-26 16:22] LABS: Glucose, Whole Blood 225 mg/dL (60-115)
--- NOTE | 2024-05-26 17:23 | HO.PM.IMPN ---
Subjective Subjective Date of Service: 05/26/24 Interval History: follow up for UTI, encephalopathy Review of Systems mentation seems similar no fevers eating lunch Physical Exam Vital Signs: Vital Signs: Last Vital Signs Temp 97.8 F 05/26/24 14:53 Pulse 65 05/26/24 14:53 Resp 18 05/26/24 14:53 BP 128/81 05/26/24 14:53 Pulse Ox 97 05/26/24 14:53 O2 Del Method Room Air 05/26/24 14:53 BMI result Body Mass Index 32.5 Appearance: Alert.? Oriented X1. cvs: rrr, [id number]. res: clear to auscultation ,no rhonchii or wheezing abd: no rebound or guarding ,nt, bs present. ext pulses present , no cyanosis . neuro: nonfocal. Objective Data Active Medications Acetaminophen (Acetaminophen Supp 650 Mg Supp.Rect) 650 mg NH Q6H PRN PRN Reason: Pain, Mild (Pain Scale 1-3), fever or headache Albuterol/Ipratropium (Albuterol/Iprat 2.5/0.5mg 3 Ml Ampul.Neb) 3 ml INHALE RQ4H PRN PRN Reason: Wheezing Apixaban (Apixaban 5 Mg Tablet) 5 mg PO BID [facility] Last Admin: 05/26/24 08:37 Dose: 5 mg Documented By: DIANE Ascorbic Acid (Ascorbic Acid 500 Mg Tablet) 1,000 mg PO DAILY [facility] Last Admin: 05/26/24 08:37 Dose: 1,000 mg Documented By: DIANE Aspirin (Aspirin 81 Mg Tab.Chew) 81 mg PO DAILY [facility] Last Admin: 05/26/24 08:37 Dose: 81 mg Documented By: DIANE Doxazosin Mesylate (Doxazosin Mesylate 2 Mg Tablet) 4 mg PO BEDTIME [facility] Last Admin: 05/25/24 21:32 Dose: 4 mg Documented By: GONZALO Ferrous Sulfate (Ferrous Sulfate 324 Mg Tablet.) 324 mg PO DAILY [facility] Last Admin: 05/26/24 08:37 Dose: 324 mg Documented By: DIANE Finasteride (Finasteride 5 Mg Tablet) 5 mg PO DAILY [facility] Last Admin: 05/26/24 08:38 Dose: 5 mg Documented By: DIANE Glucose (Glucose Gel 15 Gm Gel..Gram.) 15 gm PO Q15M PRN; Protocol PRN Reason: per Hypoglycemia Standing Ord. Haloperidol Lactate (Haloperidol Lactate 5 Mg/Ml Vial) 2.5 mg IM ONCE PRN PRN Reason: delirium Dextrose (D10) 250 mls @ 750 mls/hr IV Q15M PRN; Protocol PRN Reason: per Hypoglycemia Standing Ord. Meropenem 1 gm/ Sodium (Chloride) 100 mls @ 200 mls/hr IV Q8H [facility] Last Infusion: 05/26/24 13:22 Dose: Infused Documented By: DIANE Insulin Glargine (Insulin Glargine,Hum.Rec.Anlog 100 Unit/Ml 10 Ml Vial) 10 unit SUBCUT BEDTIME [facility] Last Admin: 05/25/24 21:32 Dose: 10 unit Documented By: GONZALO Insulin Human Lispro (Insulin Lispro 100 Unit/Ml 3 Ml Vial) 0 unit SUBCUT QIDACHS [facility]; Protocol Last Admin: 05/26/24 16:31 Dose: 4 unit Documented By: DIANE Loperamide HCl (Loperamide Hcl 2 Mg Capsule) 2 mg PO Q3H PRN PRN Reason: Diarrhea Losartan Potassium (Losartan Potassium 25 Mg Tablet) 25 mg PO DAILY [facility]; Protocol Last Admin: 05/26/24 08:37 Dose: 25 mg Documented By: DIANE Melatonin (Melatonin 3 Mg Tablet) 3 mg PO BEDTIME PRN PRN Reason: Insomnia Polyethylene Glycol (Polyethylene Glycol 3350 17 Gm Powd.Pack) 17 gm PO Q48H [facility] Last Admin: 05/25/24 12:41 Dose: 17 gm Documented By: DIANE Senna (Sennosides 8.6 Mg Tablet) 17.2 mg PO BEDTIME [facility] Last Admin: 05/26/24 00:06 Dose: Not Given Documented By: GONZALO Non-Admin Reason: Patient refusing medication and getting aggre Sodium Biphosphate/Sodium Phosphate (Sodium Phosphate,Owen-Dibasic 133 Ml Enema) 133 ml [place] DAILY [facility] Last Admin: 05/26/24 10:08 Dose: Not Given Documented By: DIANE Non-Admin Reason: pt had bm yesterday Sodium Chloride (0.9 % Sodium Chloride Flush 3 Ml Syringe) 3 ml IVFLUSH QSHIFT [facility] Last Admin: 05/26/24 16:32 Dose: Not Given Documented By: DIANE Non-Admin Reason: fluids running Tamsulosin HCl (Tamsulosin Hcl 0.4 Mg Capsule) 0.8 mg PO DAILY [facility] Last Admin: 05/26/24 08:37 Dose: 0.8 mg Documented By: DIANE Torsemide (Torsemide 20 Mg Tablet) 20 mg PO DAILY [facility]; Protocol Last Admin: 05/26/24 08:36 Dose: 20 mg Documented By: DIANE Trazodone HCl (Trazodone Hcl 50 Mg Tablet) 50 mg PO DAILY [facility] Last Admin: 05/26/24 08:36 Dose: 50 mg Documented By: DIANE Vitamin D (Cholecalciferol (Vitamin D3) 25 Mcg Tablet) 25 mcg PO DAILY [facility] Last Admin: 05/26/24 08:37 Dose: 25 mcg Documented By: DIANE Labs 05/26/24 05:46 05/26/24 05:46 Labs: Laboratory Results - last 24 hr 05/25/24 05/26/24 05/26/24 20:02 05:46 07:22 MCV 96.8 MCH 31.6 MCHC 32.7 RDW 13.1 Plt Count 151 L MPV 9.5 Immature Gran % (Auto) 0.7 H Neut % (Auto) 41.2 L Lymph % (Auto) 38.9 Owen % (Auto) 12.3 H Eos % (Auto) 6.5 H Baso % (Auto) 0.4 Lymph # (Auto) 1.7 Owen # (Auto) 0.6 Eos # (Auto) 0.3 Baso # (Auto) 0.0 Abs Immat Gran (auto) 0.03 Absolute Neuts (auto) 1.8 L Absolute Nucleated RBC 0.000 Nucleated RBC % (auto) 0.0 Anion Gap 11 L Estim Creat Clear Calc 107.7 Estimated GFR > 60 POC Glucose 161 H 111 Random Glucose 103 Calcium 9.1 05/26/24 05/26/24 11:07 16:04 MCV MCH MCHC RDW Plt Count MPV Immature Gran % (Auto) Neut % (Auto) Lymph % (Auto) Owen % (Auto) Eos % (Auto) Baso % (Auto) Lymph # (Auto) Owen # (Auto) Eos # (Auto) Baso # (Auto) Abs Immat Gran (auto) Absolute Neuts (auto) Absolute Nucleated RBC Nucleated RBC % (auto) Anion Gap Estim Creat Clear Calc Estimated GFR POC Glucose 204 H 225 H Random Glucose Calcium Microbiology Microbiology Results: Microbiology 05/24/24 Unknown Urine Culture - Preliminary Urine clean catch - Clean Catch Midstream Escherichia coli Assessment and Plan (1) UTI (urinary tract infection): Status: Acute Plan 84-year-old male with a past medical history of diabetes, muscular dystrophy, cardiac arrhythmias status post pacemaker and AICD, dementia with slow speech pattern who presents to the emergency room with acute onset mental status changes and aggressive behavior towards staff at the [place] [facility]. He was found to have a UTI and concerns for acute stroke. He will be admitted for further workup. Acute metabolic encephalopathy most liekly r/t infection continue abx evaluated by neurology, less likely CVA more likely acute metabolic encephalopathy related to UTI with underlying degenerative dementia Acute UTI no sepsis IV meropenem (initiated 05/26) Follow cultures-Ecoli:senstive to ertapenem and nitrofurantoin, intermediate to levofloxacin Id evaluation added,blood culture. 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
[2024-05-26 19:59] VITALS: BP 153/70; PULSE 60; RESP 18; TEMP 36.3; O2SAT 98
[2024-05-26] MEDS: Doxazosin Mesylate 2 MG TABLET 4 MG PO (20:19)
[2024-05-26] MEDS: Sennosides 8.6 MG TABLET 17.2 MG PO (20:19)
[2024-05-26] MEDS: Insulin Glargine,Hum.rec.anlog 100 UNIT/ML 10 ML VIAL 10 UNIT SUBCUT (20:19)
[2024-05-26 20:56] LABS: Glucose, Whole Blood 223 mg/dL (60-115)
[2024-05-26] MEDS: Haloperidol Lactate 5 MG/ML VIAL 2.5 MG IM (23:10)
[2024-05-26 23:36] VITALS: BP 149/60; PULSE 61; RESP 18; TEMP 36.7; O2SAT 98
[2024-05-27] VITALS (7 sets, daily range): BP systolic 112–161; BP diastolic 66–87; PULSE 60–81; RESP 17–21; TEMP 36.1–36.6; O2SAT 95–97
--- NOTE | 2024-05-27 00:26 | P.CNID_ITS ---
History of Present Illness Data of Consult Service Date: 05/26/24 Requesting physician: Coty Ramsey Primary Care Provider: Dima Murphy MD HPI Reason for consult: ESBL found in urine,aggression and confusion He presents with confusion and reported aggressive behaviour in facility. He has search for infection as cause of confusion and has E coli found sensitive to Ertapenem and resistant most other antimicrobials. He has left AKA. 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 Atrial flutter Family History Family History Mother Colon cancer Family history: reviewed and not pertinent Surgical History Surgical History Status post ablation of atrial fibrillation Hx of appendectomy Social History Social History Alcohol intake: former Patient Tobacco Use Status: Former Tobacco user Tobacco use type: Cigarette service: Yes Meds Allergies Allergy/AdvReac Type Severity Reaction Status Date / Time Unable to Assess Allergy Verified 05/24/24 12:59 Active Medications: Current Medications Acetaminophen (Acetaminophen Supp 650 Mg Supp.Rect) 650 mg MI Q6H PRN PRN Reason: Pain, Mild (Pain Scale 1-3), fever or headache Albuterol/Ipratropium (Albuterol/Iprat 2.5/0.5mg 3 Ml Ampul.Neb) 3 ml INHALE RQ4H PRN PRN Reason: Wheezing Apixaban (Apixaban 5 Mg Tablet) 5 mg PO BID [facility] Last Admin: 05/26/24 20:19 Dose: 5 mg Ascorbic Acid (Ascorbic Acid 500 Mg Tablet) 1,000 mg PO DAILY [facility] Last Admin: 05/26/24 08:37 Dose: 1,000 mg Aspirin (Aspirin 81 Mg Tab.Chew) 81 mg PO DAILY [facility] Last Admin: 05/26/24 08:37 Dose: 81 mg Doxazosin Mesylate (Doxazosin Mesylate 2 Mg Tablet) 4 mg PO BEDTIME [facility] Last Admin: 05/26/24 20:19 Dose: 4 mg Ferrous Sulfate (Ferrous Sulfate 324 Mg Tablet.Dr) 324 mg PO DAILY [facility] Last Admin: 05/26/24 08:37 Dose: 324 mg Finasteride (Finasteride 5 Mg Tablet) 5 mg PO DAILY [facility] Last Admin: 05/26/24 08:38 Dose: 5 mg Glucose (Glucose Gel 15 Gm Gel..Gram.) 15 gm PO Q15M PRN; Protocol PRN Reason: per Hypoglycemia Standing Ord. Haloperidol Lactate (Haloperidol Lactate 5 Mg/Ml Vial) 2.5 mg IM ONCE PRN PRN Reason: delirium Last Admin: 05/26/24 23:10 Dose: 2.5 mg Dextrose (D10) 250 mls @ 750 mls/hr IV Q15M PRN; Protocol PRN Reason: per Hypoglycemia Standing Ord. Meropenem 1 gm/ Sodium (Chloride) 100 mls @ 200 mls/hr IV Q8H [facility] Last Infusion: 05/26/24 18:30 Dose: Infused Insulin Glargine (Insulin Glargine,Hum.Rec.Anlog 100 Unit/Ml 10 Ml Vial) 10 unit SUBCUT BEDTIME [facility] Last Admin: 05/26/24 20:19 Dose: 10 unit Insulin Human Lispro (Insulin Lispro 100 Unit/Ml 3 Ml Vial) 0 unit SUBCUT QIDACHS [facility]; Protocol Last Admin: 05/26/24 20:35 Dose: 4 unit Loperamide HCl (Loperamide Hcl 2 Mg Capsule) 2 mg PO Q3H PRN PRN Reason: Diarrhea Losartan Potassium (Losartan Potassium 25 Mg Tablet) 25 mg PO DAILY [facility]; Protocol Last Admin: 05/26/24 08:37 Dose: 25 mg Melatonin (Melatonin 3 Mg Tablet) 3 mg PO BEDTIME PRN PRN Reason: Insomnia Polyethylene Glycol (Polyethylene Glycol 3350 17 Gm Powd.Pack) 17 gm PO Q48H [facility] Last Admin: 05/25/24 12:41 Dose: 17 gm Senna (Sennosides 8.6 Mg Tablet) 17.2 mg PO BEDTIME [facility] Last Admin: 05/26/24 20:19 Dose: 17.2 mg Sodium Biphosphate/Sodium Phosphate (Sodium Phosphate,[place]eward-Dibasic 133 Ml Enema) 133 ml MI DAILY [facility] Last Admin: 05/26/24 10:08 Dose: Not Given Sodium Chloride (0.9 % Sodium Chloride Flush 3 Ml Syringe) 3 ml IVFLUSH QSHIFT [facility] Last Admin: 05/26/24 20:35 Dose: 3 ml Tamsulosin HCl (Tamsulosin Hcl 0.4 Mg Capsule) 0.8 mg PO DAILY [facility] Last Admin: 05/26/24 08:37 Dose: 0.8 mg Torsemide (Torsemide 20 Mg Tablet) 20 mg PO DAILY [facility]; Protocol Last Admin: 05/26/24 08:36 Dose: 20 mg Trazodone HCl (Trazodone Hcl 50 Mg Tablet) 50 mg PO DAILY [facility] Last Admin: 05/26/24 08:36 Dose: 50 mg Vitamin D (Cholecalciferol (Vitamin D3) 25 Mcg Tablet) 25 mcg PO DAILY [facility] Last Admin: 05/26/24 08:37 Dose: 25 mcg Home Medications ?Medication ?Instructions ?Recorded ?Confirmed ?Last Taken ?Type acetaminophen 325 mg tablet 650 mg PO Q12H 04/02/24 05/24/24 05/24/24 History apixaban 5 mg tablet 5 mg PO BID 04/02/24 05/24/24 05/23/24 History aspirin 81 mg chewable tablet 81 mg PO DAILY 04/02/24 05/24/24 05/24/24 History cholecalciferol (vitamin D3) 25 25 mcg PO DAILY 04/02/24 05/24/24 05/24/24 History mcg (1,000 unit) tablet ferrous fumarate 325 mg (106 mg 325 mg PO DAILY 04/02/24 05/24/24 05/24/24 History iron) tablet finasteride 5 mg tablet 5 mg PO DAILY 04/02/24 05/24/24 05/23/24 History glipizide 5 mg tablet 5 mg PO DAILY 04/02/24 05/24/24 05/24/24 History insulin glargine 100 unit/mL (3 13 unit subcut QPM 04/02/24 05/24/24 05/23/24 History mL) subcutaneous pen insulin lispro 100 unit/mL See Rx Instructions .Route .COMPLEX 04/02/24 05/24/24 Unknown History subcutaneous pen loperamide 2 mg tablet 2 mg PO Q3H PRN Diarrhea 04/02/24 05/24/24 Unknown History melatonin 3 mg tablet 3 mg PO BEDTIME PRN Insomnia 04/02/24 05/24/24 05/23/24 History tamsulosin 0.4 mg capsule 0.8 mg PO DAILY 04/02/24 05/24/24 05/24/24 History terazosin 5 mg capsule 5 mg PO BEDTIME 04/02/24 05/24/24 05/23/24 History torsemide 20 mg tablet 20 mg PO DAILY 04/02/24 05/24/24 05/24/24 History trazodone 50 mg tablet 50 mg PO DAILY 04/02/24 05/24/24 05/23/24 History ipratropium 0.5 mg-albuterol 3 mg 3 ml inhalation Q4-6H PRN Wheezing 04/22/24 05/24/24 Unknown History (2.5 mg base)/3 mL nebulization soln ascorbic acid (vitamin C) 500 mg 1 g PO DAILY 05/24/24 05/24/24 05/24/24 History tablet losartan 25 mg tablet 25 mg PO DAILY 05/24/24 05/24/24 05/24/24 History polyethylene glycol 3350 17 gram 17 g PO Q48H 05/24/24 05/24/24 Unknown History oral powder packet (Miralax) Physical Exam 2 Vital Signs: Vital Signs: Last Vital Signs Temp 98.1 F 05/26/24 23:36 Pulse 61 05/26/24 23:36 Resp 18 05/26/24 23:36 BP 149/60 H 05/26/24 23:36 Pulse Ox 98 05/26/24 23:36 O2 Del Method Room Air 05/26/24 23:36 BMI result Body Mass Index 32.5 Psych: Other: not communicative Results Labs 05/26/24 05:46 05/26/24 05:46 Labs: Short CBC 05/26/24 Range/Units 05:46 WBC 4.5 L (4.8-10.8) X10*3/uL Hgb 11.7 L (14.0-18.0) g/dl Hct 35.8 L (42.0-52.0) % Plt Count 151 L (160-400) X10*3/uL BMP 05/26/24 05:46 Sodium 141 Potassium 3.7 Chloride 109 H Carbon Dioxide 25 BUN 29 H Creatinine 0.62 Calcium 9.1 Microbiology Microbiology Results: Microbiology 05/24/24 Unknown Urine clean catch - Clean Catch Midstream Urine Culture - Preliminary Escherichia coli Assessment and Plan (1) Altered mental status: Qualifiers: Altered mental status type: disorientation Qualified Code(s): R41.0 - Disorientation, unspecified Status: Acute (2) Incomplete bladder emptying: Status: Acute Plan His only sign of infection is mental status changes. He has no fever or hematuria and cant voice symptoms. Would finish 8 days Merem/Ertapenem due to possible urinary infection which is resistant. Follow Urology outpatient.
--- NOTE | 2024-05-27 05:59 | PC.NURSE ---
Around 1999 patient kept yelling Hello and for Alexandru the patient direct care supervisor. RN tried to redirect patient multiple times with television and activities with no success. Other patient in the area began to inquire about that noise Beka was making . RN notified MD and got an order for PO Haldol patient would not take medication after multiple attempts. IM Haldol administered with effective results. Camera present in the room and call lucila elias . Bed alarm is on .
[2024-05-27 07:43] LABS: Glucose, Whole Blood 101 mg/dL (60-115)
[2024-05-27] MEDS: 0.9 % Sodium Chloride Flush 3 ML SYRINGE IVFLUSH ×3 (09:11→21:26)
[2024-05-27 11:46] LABS: Glucose, Whole Blood 97 mg/dL (60-115)
--- NOTE | 2024-05-27 12:11 | MHC.CLN ---
F/U PT WITH INCREASED NUTRITION RISK R/T PRESSURE INJURY DIET RX: 2000DM-APPROPRIATE RECOMMEND ADDING HIGH PROTEIN PO SUPPLEMENT TO PROMOTE WOUND HEALING ENSURE MAX BID TO PROVIDE 300KCALS, 60G PROTEIN MONITOR PO INTAKE AND ENCOURAGE SUPPLEMENT
[2024-05-27] MEDS: polyethylene glycoL 3350 17 GM POWD.PACK PO (13:03)
[2024-05-27] MEDS: Dextrose 5 % and 0.9 % NaCl 1,000 ML 100 ML IVCONT (13:07)
--- NOTE | 2024-05-27 13:10 | PM.PSYCN ---
History of Present Illness Date of Service: 05/27/2024 Chief Complaint: Confusion Reason for Consult: dementia with agitation Requesting physician: Coty Ramsey Discussed with referring provider: Yes Sources of Information: patient interviewed and chart reviewed Additional Sources of Information: at bedside HPI Narrative: 84 year-old male with a past medical history of diabetes, muscular dystrophy, cardiac arrhythmias, status post pacemaker and AICD, dementia with slow speech pattern who presents to the emergency room with acute onset mental status changes and aggressive behavior towards staff at the [facility] home. He was found to have a UTI; seen by neurology and stroke ruled out -acute metabolic encephalopathy most liekly r/t UTI infection Pt seen today - he is lying in bed in hospital gown; he is calm; makes no eye contact; does respond verbally saying he is a little better today; he is oriented x 2. He is calm and cooperative with at bedside; She states he does not have hsotry of combativeness or agitation and that those behaviors had a sudden onset with uti. He was observed to have slight wheezing and cough. Past Psychiatric History: dementia with episodic agitation Medical Evaluation Reviewed: Yes UTI on abx Personal & Social History: lives at [facility]; involved in his care Review of Systems Review of Systems mentation seems similar no fevers eating lunch Yes all other systems are reviewed and are negative, Unobtainable due to mental condition and Unobtainable due to mental status [facility] Medical History Stercoral colitis Spontaneous ASD closure Hemorrhoids Dysphagia Obstructive and reflux uropathy BPH (benign prostatic hyperplasia) Chronic kidney disease Spinal stenosis Diabetes mellitus Myotonic muscular dystrophy Anemia Hyperlipidemia Hypertension Atrial fibrillation Pacemaker 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 Atrial flutter Surgical History Status post ablation of atrial fibrillation Hx of appendectomy Diagnostics Vital Signs (24Hr): Vital Signs - 24 hr 05/26/24 14:53 05/26/24 19:59 05/26/24 23:36 Temperature 97.8 F 97.3 F 98.1 F Pulse Rate 65 60 61 Respiratory Rate 18 18 18 Blood Pressure 128/81 153/70 H 149/60 H Pulse Oximetry 97 98 98 Oxygen Delivery Method Room Air Room Air Room Air 05/27/24 03:50 05/27/24 07:09 05/27/24 11:14 Temperature 97.9 F 96.9 F 97.6 F Pulse Rate 81 60 63 Respiratory Rate 18 18 17 Blood Pressure 112/77 125/87 134/87 Pulse Oximetry 97 95 96 Oxygen Delivery Method Room Air Room Air Room Air BMI result Body Mass Index 32.5 Labs 05/27/24 12:53 05/27/24 12:53 Labs: Laboratory Results - last 48 hr 05/25/24 05/25/24 05/26/24 16:33 20:02 05:46 WBC 4.5 L RBC 3.70 L Hgb 11.7 L Hct 35.8 L MCV 96.8 MCH 31.6 MCHC 32.7 RDW 13.1 Plt Count 151 L MPV 9.5 Immature Gran % (Auto) 0.7 H Neut % (Auto) 41.2 L Lymph % (Auto) 38.9 [place] % (Auto) 12.3 H Eos % (Auto) 6.5 H Baso % (Auto) 0.4 Lymph # (Auto) 1.7 [place] # (Auto) 0.6 Eos # (Auto) 0.3 Baso # (Auto) 0.0 Abs Immat Gran (auto) 0.03 Absolute Neuts (auto) 1.8 L Absolute Nucleated RBC 0.000 Nucleated RBC % (auto) 0.0 Hold Purple Top Sodium 141 Potassium 3.7 Chloride 109 H Carbon Dioxide 25 Anion Gap 11 L BUN 29 H Creatinine 0.62 Estim Creat Clear Calc 107.7 Estimated GFR > 60 POC Glucose 197 H 161 H Random Glucose 103 Calcium 9.1 Hold Yellow Top 05/26/24 05/26/24 05/26/24 07:22 11:07 16:04 WBC RBC Hgb Hct MCV MCH MCHC RDW Plt Count MPV Immature Gran % (Auto) Neut % (Auto) Lymph % (Auto) [place] % (Auto) Eos % (Auto) Baso % (Auto) Lymph # (Auto) [place] # (Auto) Eos # (Auto) Baso # (Auto) Abs Immat Gran (auto) Absolute Neuts (auto) Absolute Nucleated RBC Nucleated RBC % (auto) Hold Purple Top Sodium Potassium Chloride Carbon Dioxide Anion Gap BUN Creatinine Estim Creat Clear Calc Estimated GFR POC Glucose 111 204 H 225 H Random Glucose Calcium Hold Yellow Top 05/26/24 05/26/24 05/27/24 17:31 20:27 07:39 WBC RBC Hgb Hct MCV MCH MCHC RDW Plt Count MPV Immature Gran % (Auto) Neut % (Auto) Lymph % (Auto) [place] % (Auto) Eos % (Auto) Baso % (Auto) Lymph # (Auto) [place] # (Auto) Eos # (Auto) Baso # (Auto) Abs Immat Gran (auto) Absolute Neuts (auto) Absolute Nucleated RBC Nucleated RBC % (auto) Hold Purple Top SEE NOTE Sodium Potassium Chloride Carbon Dioxide Anion Gap BUN Creatinine Estim Creat Clear Calc Estimated GFR POC Glucose 223 H 101 Random Glucose Calcium Hold Yellow Top See Note 05/27/24 11:33 WBC RBC Hgb Hct MCV MCH MCHC RDW Plt Count MPV Immature Gran % (Auto) Neut % (Auto) Lymph % (Auto) [place] % (Auto) Eos % (Auto) Baso % (Auto) Lymph # (Auto) [place] # (Auto) Eos # (Auto) Baso # (Auto) Abs Immat Gran (auto) Absolute Neuts (auto) Absolute Nucleated RBC Nucleated RBC % (auto) Hold Purple Top Sodium Potassium Chloride Carbon Dioxide Anion Gap BUN Creatinine Estim Creat Clear Calc Estimated GFR POC Glucose 97 Random Glucose Calcium Hold Yellow Top Imaging Radiology Impressions: ITS Impressions Head CT 05/24/24 13:04 IMPRESSION: No acute intracranial process seen. There is a right frontal lobe encephalomalacia with chronic white matter changes. Chronic inflammatory changes right frontal, middle ethmoid and maxillary sinuses. This critical result was discussed with EVENS Lacey at 1:2 PM on 05/24/2024. It was ascertained that the content and urgency of the report was understood at the time of direct communication. Head/Neck CTA 05/24/24 13:31 IMPRESSION: -CTA head demonstrates no large vessel occlusion, saccular aneurysm, or dissection. -CTA and neck demonstrates complete focal stenosis of the left vertebral artery origin. 30% focal stenosis of the left cervical ICA. Otherwise, no hemodynamically significant stenosis, dissection, or aneurysm. Partially imaged right pleural effusion with partial right lower lobe collapse. Mental Status Exam Mental Status Exam Narrative: in hospital gown in bed; no eye contact; responds to verbal cues; oriented x 1, calm no agitation observed with by bedside Medications Medications Current Medications Acetaminophen (Acetaminophen Supp 650 Mg Supp.Rect) 650 mg PA Q6H PRN PRN Reason: Pain, Mild (Pain Scale 1-3), fever or headache Albuterol/Ipratropium (Albuterol/Iprat 2.5/0.5mg 3 Ml Ampul.Neb) 3 ml INHALE RQ4H PRN PRN Reason: Wheezing Apixaban (Apixaban 5 Mg Tablet) 5 mg PO BID [facility] Last Admin: 05/27/24 10:39 Dose: Not Given Ascorbic Acid (Ascorbic Acid 500 Mg Tablet) 1,000 mg PO DAILY [facility] Last Admin: 05/27/24 10:38 Dose: Not Given Aspirin (Aspirin 81 Mg Tab.Chew) 81 mg PO DAILY [facility] Last Admin: 05/27/24 10:38 Dose: Not Given Doxazosin Mesylate (Doxazosin Mesylate 2 Mg Tablet) 4 mg PO BEDTIME [facility] Last Admin: 05/26/24 20:19 Dose: 4 mg Enoxaparin Sodium (Enoxaparin Sodium 100 Mg/Ml Syringe) 100 mg SUBCUT Q24H [facility] Ferrous Sulfate (Ferrous Sulfate 324 Mg Tablet.Dr) 324 mg PO DAILY [facility] Last Admin: 05/27/24 10:38 Dose: Not Given Finasteride (Finasteride 5 Mg Tablet) 5 mg PO DAILY [facility] Last Admin: 05/27/24 10:38 Dose: Not Given Glucose (Glucose Gel 15 Gm Gel..Gram.) 15 gm PO Q15M PRN; Protocol PRN Reason: per Hypoglycemia Standing Ord. Haloperidol Lactate (Haloperidol Lactate 5 Mg/Ml Vial) 2.5 mg IM ONCE PRN PRN Reason: delirium Last Admin: 05/26/24 23:10 Dose: 2.5 mg Dextrose (D10) 250 mls @ 750 mls/hr IV Q15M PRN; Protocol PRN Reason: per Hypoglycemia Standing Ord. Meropenem 1 gm/ Sodium (Chloride) 100 mls @ 200 mls/hr IV Q8H [facility] Last Infusion: 05/27/24 12:35 Dose: Infused Dextrose/Sodium Chloride (D5ns) 1,000 mls @ 100 mls/hr IVCONT .Q10H [facility] Last Admin: 05/27/24 13:07 Dose: 100 mls/hr Insulin Glargine (Insulin Glargine,Hum.Rec.Anlog 100 Unit/Ml 10 Ml Vial) 10 unit SUBCUT BEDTIME [facility] Last Admin: 05/26/24 20:19 Dose: 10 unit Insulin Human Lispro (Insulin Lispro 100 Unit/Ml 3 Ml Vial) 0 unit SUBCUT QIDACHS [facility]; Protocol Last Admin: 05/27/24 13:03 Dose: Not Given Loperamide HCl (Loperamide Hcl 2 Mg Capsule) 2 mg PO Q3H PRN PRN Reason: Diarrhea Losartan Potassium (Losartan Potassium 25 Mg Tablet) 25 mg PO DAILY [facility]; Protocol Last Admin: 05/27/24 10:38 Dose: Not Given Melatonin (Melatonin 3 Mg Tablet) 3 mg PO BEDTIME PRN PRN Reason: Insomnia Polyethylene Glycol (Polyethylene Glycol 3350 17 Gm Powd.Pack) 17 gm PO Q48H [facility] Last Admin: 05/27/24 13:03 Dose: 17 gm Senna (Sennosides 8.6 Mg Tablet) 17.2 mg PO BEDTIME [facility] Last Admin: 05/26/24 20:19 Dose: 17.2 mg Sodium Biphosphate/Sodium Phosphate (Sodium Phosphate,[place]-Dibasic 133 Ml Enema) 133 ml PA DAILY [facility] Last Admin: 05/27/24 11:39 Dose: Not Given Sodium Chloride (0.9 % Sodium Chloride Flush 3 Ml Syringe) 3 ml IVFLUSH QSHIFT [facility] Last Admin: 05/27/24 09:11 Dose: 3 ml Tamsulosin HCl (Tamsulosin Hcl 0.4 Mg Capsule) 0.8 mg PO DAILY [facility] Last Admin: 05/27/24 10:38 Dose: Not Given Torsemide (Torsemide 20 Mg Tablet) 20 mg PO DAILY [facility]; Protocol Last Admin: 05/27/24 10:38 Dose: Not Given Trazodone HCl (Trazodone Hcl 50 Mg Tablet) 50 mg PO DAILY [facility] Last Admin: 05/27/24 10:39 Dose: Not Given Vitamin D (Cholecalciferol (Vitamin D3) 25 Mcg Tablet) 25 mcg PO DAILY [facility] Last Admin: 05/27/24 10:38 Dose: Not Given Allergies Allergies Allergy/AdvReac Type Severity Reaction Status Date / Time Unable to Assess Allergy Verified 05/24/24 12:59 Assessment & Plan Assessment & Plan (1) Altered mental status: Qualifiers: Altered mental status type: disorientation Qualified Code(s): R41.0 - Disorientation, unspecified Status: Acute Code(s): R41.82 - Altered mental status, unspecified (2) Incomplete bladder emptying: Status: Acute Code(s): R33.9 - Retention of urine, unspecified Plan His only sign of infection is mental status changes. He has no fever or hematuria and cant voice symptoms. Would finish 8 days Merem/Ertapenem due to possible urinary infection which is resistant. Follow Urology outpatient. psychiatry: utilize low dose haldol 2.5 mg prn if needed for agitation; agitation likley to decrease with clearing of infection; signing off for now thank you for the consult please re-consult psychiatry of needed Total time managing care of this patient today __55__ minutes.
[2024-05-27 13:38] LABS: Hematocrit 37.6 % (42.0-52.0); Hemoglobin 12.5 g/dl (14.0-18.0); Mean Corpuscular HGB Conc 33.2 g/dl (31.0-36.0); Mean Corpuscular Volume 96.2 fL (80.0-98.0); Mean Platelet Volume 9.4 fL (9.4-12.4); Platelet Count 164 X10*3/uL (160-400); Red Blood Count 3.91 X10*6/uL (4.60-5.80); Red Cell Distribution Width 13.1 % (11.0-16.0); White Blood Count 4.9 X10*3/uL (4.8-10.8)
[2024-05-27 14:22] LABS: Anion Gap 11 (12-20); Blood Urea Nitrogen 26 mg/dL (9-16); Calcium 9.2 mg/dL (8.4-10.2); Carbon Dioxide 24 mmol/L (22-29); Chloride 111 mmol/L (96-108); Creatinine Clr Calc Pharmacy 119.2; Estimated Glomerular Filt Rate > 60; Glucose Random 94 mg/dL (60-115); Potassium 3.9 mmol/L (3.3-5.1); Sodium 142 mmol/L (135-145)
--- NOTE | 2024-05-27 14:41 | MHC.CM.PN ---
EMR reviewed and per MD rounds, pt is not medically cleared for discharge due to management of UTI infection with pending blood cultures.
[2024-05-27] MEDS: Apixaban 5 MG TABLET PO ×2 (15:10→21:26)
[2024-05-27 16:23] LABS: Glucose, Whole Blood 178 mg/dL (60-115)
--- NOTE | 2024-05-27 16:38 | HO.PM.IMPN ---
Subjective Subjective Date of Service: 05/27/24 Interval History: follow up for UTI, encephalopathy Review of Systems mentation seems similar , last night recieved halodol no fevers eating lunch Physical Exam Vital Signs: Vital Signs: Last Vital Signs Temp 97.1 F 05/27/24 15:33 Pulse 65 05/27/24 15:33 Resp 18 05/27/24 15:33 BP 141/78 H 05/27/24 15:33 Pulse Ox 96 05/27/24 15:33 O2 Del Method Room Air 05/27/24 15:33 BMI result Body Mass Index 32.5 Appearance: Alert.? Oriented X1. cvs: rrr, [id number]. res: clear to auscultation ,no rhonchii or wheezing abd: no rebound or guarding ,nt, bs present. ext pulses present , no cyanosis . neuro: nonfocal. Objective Data Active Medications Acetaminophen (Acetaminophen Supp 650 Mg Supp.Rect) 650 mg OR Q6H PRN PRN Reason: Pain, Mild (Pain Scale 1-3), fever or headache Albuterol/Ipratropium (Albuterol/Iprat 2.5/0.5mg 3 Ml Ampul.Neb) 3 ml INHALE RQ4H PRN PRN Reason: Wheezing Apixaban (Apixaban 5 Mg Tablet) 5 mg PO BID [facility] Last Admin: 05/27/24 15:10 Dose: 5 mg Documented By: CHEYANNE Ascorbic Acid (Ascorbic Acid 500 Mg Tablet) 1,000 mg PO DAILY [facility] Last Admin: 05/27/24 10:38 Dose: Not Given Documented By: CHEYANNE Non-Admin Reason: Patient Refused Aspirin (Aspirin 81 Mg Tab.Chew) 81 mg PO DAILY [facility] Last Admin: 05/27/24 10:38 Dose: Not Given Documented By: CHEYANNE Non-Admin Reason: Patient Refused Doxazosin Mesylate (Doxazosin Mesylate 2 Mg Tablet) 4 mg PO BEDTIME [facility] Last Admin: 05/26/24 20:19 Dose: 4 mg Documented By: GONZALO Ferrous Sulfate (Ferrous Sulfate 324 Mg Tablet.) 324 mg PO DAILY [facility] Last Admin: 05/27/24 10:38 Dose: Not Given Documented By: CHEYANNE Non-Admin Reason: Patient Refused Finasteride (Finasteride 5 Mg Tablet) 5 mg PO DAILY [facility] Last Admin: 05/27/24 10:38 Dose: Not Given Documented By: CHEYANNE Non-Admin Reason: Patient Refused Glucose (Glucose Gel 15 Gm Gel..Gram.) 15 gm PO Q15M PRN; Protocol PRN Reason: per Hypoglycemia Standing Ord. Haloperidol Lactate (Haloperidol Lactate 5 Mg/Ml Vial) 2.5 mg IM ONCE PRN PRN Reason: delirium Last Admin: 05/26/24 23:10 Dose: 2.5 mg Documented By: GONZALO Dextrose (D10) 250 mls @ 750 mls/hr IV Q15M PRN; Protocol PRN Reason: per Hypoglycemia Standing Ord. Meropenem 1 gm/ Sodium (Chloride) 100 mls @ 200 mls/hr IV Q8H [facility] Last Infusion: 05/27/24 12:35 Dose: Infused Documented By: CHEYANNE Dextrose/Sodium Chloride (D5ns) 1,000 mls @ 100 mls/hr IVCONT .Q10H [facility] Last Admin: 05/27/24 13:07 Dose: 100 mls/hr Documented By: CHEYANNE Insulin Glargine (Insulin Glargine,Hum.Rec.Anlog 100 Unit/Ml 10 Ml Vial) 10 unit SUBCUT BEDTIME [facility] Last Admin: 05/26/24 20:19 Dose: 10 unit Documented By: GONZALO Insulin Human Lispro (Insulin Lispro 100 Unit/Ml 3 Ml Vial) 0 unit SUBCUT QIDACHS [facility]; Protocol Last Admin: 05/27/24 13:03 Dose: Not Given Documented By: CHEYANNE Non-Admin Reason: No Insulin Coverage Loperamide HCl (Loperamide Hcl 2 Mg Capsule) 2 mg PO Q3H PRN PRN Reason: Diarrhea Losartan Potassium (Losartan Potassium 25 Mg Tablet) 25 mg PO DAILY [facility]; Protocol Last Admin: 05/27/24 10:38 Dose: Not Given Documented By: CHEYANNE Non-Admin Reason: Patient Refused Melatonin (Melatonin 3 Mg Tablet) 3 mg PO BEDTIME PRN PRN Reason: Insomnia Polyethylene Glycol (Polyethylene Glycol 3350 17 Gm Powd.Pack) 17 gm PO Q48H [facility] Last Admin: 05/27/24 13:03 Dose: 17 gm Documented By: CHEYANNE Senna (Sennosides 8.6 Mg Tablet) 17.2 mg PO BEDTIME [facility] Last Admin: 05/26/24 20:19 Dose: 17.2 mg Documented By: GONZALO Sodium Biphosphate/Sodium Phosphate (Sodium Phosphate,[place]-Dibasic 133 Ml Enema) 133 ml OR DAILY [facility] Last Admin: 05/27/24 11:39 Dose: Not Given Documented By: CHEYANNE Non-Admin Reason: pt had BM 8/5 Sodium Chloride (0.9 % Sodium Chloride Flush 3 Ml Syringe) 3 ml IVFLUSH QSHIFT [facility] Last Admin: 05/27/24 15:12 Dose: 3 ml Documented By: CHEYANNE Tamsulosin HCl (Tamsulosin Hcl 0.4 Mg Capsule) 0.8 mg PO DAILY [facility] Last Admin: 05/27/24 10:38 Dose: Not Given Documented By: CHEYANNE Non-Admin Reason: Patient Refused Torsemide (Torsemide 20 Mg Tablet) 20 mg PO DAILY [facility]; Protocol Last Admin: 05/27/24 10:38 Dose: Not Given Documented By: CHEYANNE Non-Admin Reason: Patient Refused Trazodone HCl (Trazodone Hcl 50 Mg Tablet) 50 mg PO DAILY [facility] Last Admin: 05/27/24 10:39 Dose: Not Given Documented By: CHEYANNE Non-Admin Reason: Patient Refused Vitamin D (Cholecalciferol (Vitamin D3) 25 Mcg Tablet) 25 mcg PO DAILY [facility] Last Admin: 05/27/24 10:38 Dose: Not Given Documented By: CHEYANNE Non-Admin Reason: Patient Refused Labs 05/27/24 12:53 05/27/24 12:53 Labs: Laboratory Results - last 24 hr 05/26/24 05/26/24 05/27/24 17:31 20:27 07:39 MCV MCH MCHC RDW Plt Count MPV Absolute Nucleated RBC Nucleated RBC % (auto) Hold Purple Top SEE NOTE Anion Gap Estim Creat Clear Calc Estimated GFR POC Glucose 223 H 101 Random Glucose Calcium Hold Yellow Top See Note 05/27/24 05/27/24 05/27/24 11:33 12:53 16:19 MCV 96.2 MCH 32.0 MCHC 33.2 RDW 13.1 Plt Count 164 MPV 9.4 Absolute Nucleated RBC 0.000 Nucleated RBC % (auto) 0.0 Hold Purple Top Anion Gap 11 L Estim Creat Clear Calc 119.2 Estimated GFR > 60 POC Glucose 97 178 H Random Glucose 94 Calcium 9.2 Hold Yellow Top Microbiology Microbiology Results: Microbiology 05/24/24 Unknown Urine Culture - Preliminary Urine clean catch - Clean Catch Midstream Escherichia coli Assessment and Plan (1) UTI (urinary tract infection): Status: Acute Plan 84-year-old male with a past medical history of diabetes, muscular dystrophy, cardiac arrhythmias status post pacemaker and AICD, dementia with slow speech pattern who presents to the emergency room with acute onset mental status changes and aggressive behavior towards staff at the [facility]. He was found to have a UTI and concerns for acute stroke. He will be admitted for further workup. Acute metabolic encephalopathy most liekly r/t infection continue abx evaluated by neurology, less likely CVA more likely acute metabolic encephalopathy related to UTI with underlying degenerative dementia dementia /behavioural disturbance : received halodol last night added seroquel 25 mg bid psych eval Acute UTI no sepsis IV meropenem (initiated 05/26) Follow cultures-Ecoli:senstive to ertapenem and nitrofurantoin, intermediate to levofloxacin Id evaluation added,blood culture. 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 Turn and Reposition every 2 hours and as needed for patient comfort.? Use pillows or wedges to support off loading positions. 2. Off Load all bony prominences with use of pillows and heel boots if needed.? Apply Preventative foams where needed. ? 3. Monitor for incontinence and moisture control, use barrier creams when needed for prevention and treatment. 4. Provide adequate and supplemental nutrition.? 5. Continue low air loss mattress. 6. When applicable maintain blood glucose levels per Providers order. 7. Sacrum and Bilateral Ischium - Off Load Pressure - Cleanse with PH balance spray or wipes, pat dry. ?Apply thin layer of [place] to wound bed - only pat and dab no scrub and rub when soiling occurs. Reapply thin layer PRN after each episode of incontinence. DNR/DNI ongoing ongoing inpatient stay for management of acute metabolic encephalopathy related to UTI on IV antibiotics requiring close monitoring of mentation Quality Stroke Does the patient have a stroke diagnosis?: No VTE Prior VTE?: No VTE Risk Level:: Medical - moderate - high VTE Device Contraindication: N/A - Device Ordered VTE Drug Contraindication: N/A - Med Ordered
[2024-05-27] MEDS: Insulin Lispro 100 UNIT/ML 3 ML VIAL SUBCUT ×2 (17:44→21:29)
[2024-05-27 20:33] LABS: Glucose, Whole Blood 234 mg/dL (60-115)
[2024-05-27] MEDS: Sennosides 8.6 MG TABLET 17.2 MG PO (21:26)
[2024-05-27] MEDS: Insulin Glargine,Hum.rec.anlog 100 UNIT/ML 10 ML VIAL 10 UNIT SUBCUT (21:29)
[2024-05-27] MEDS: Doxazosin Mesylate 2 MG TABLET 4 MG PO (21:29)
[2024-05-28] VITALS (7 sets, daily range): BP systolic 137–160; BP diastolic 63–71; PULSE 61–69; RESP 16–22; TEMP 36.2–36.6; O2SAT 94–96
[2024-05-28] MEDS: Dextrose 5 % and 0.9 % NaCl 1,000 ML 100 ML IVCONT ×3 (00:44→21:54)
[2024-05-28 08:32] LABS: Glucose, Whole Blood 110 mg/dL (60-115)
--- NOTE | 2024-05-28 08:53 | P.CDIM_ITS ---
PROVIDER RESPONSE TEXT: To clarify, the appropriate diagnosis supported by the clinical indicators: Other (explain): DTI QUERY TEXT: PHYSICIAN'S DOCUMENTATION REQUEST Date of Query: 05/27/2024 07:29 AM EDT Patient Name: Beka Abreu Admit Date: 05/24/2024 Dear Coty Ramsey MD, A review of the medical record indicates additional documentation may be needed. Please review below and update the documentation accordingly. Clinical Indicators: Per Wound Note 05/25/24: Sacrum deep tissue injury in evolution, present on admission Barrier cream to protect from moisture and friction and allow for moist wound healing. Off load pressure Based on the above, could you please provide further information regarding the ulcer/wound: Pressure (decubitus) ulcer Please include the stage of the ulcer and specify the location and laterality of the ulcer/wound Traumatic wound Please specify the location and laterality of the ulcer/wound Other (explain) Clinically unable to determine (explain) Thank you, Lynsey Gong RN Use of terms such as suspected, likely, concern for, or probable (associated with a specific diagnosi s that is being evaluated, monitored, or treated as if it exists) are acceptable and can be coded in the inpatient se tting, when documented at the time of discharge. Please use your independent medical judgment in providing your response. THIS QUERY IS PART OF THE PERMANENT MEDICAL RECORD
[2024-05-28] MEDS: Cholecalciferol (Vitamin D3) 25 MCG TABLET PO (09:59)
[2024-05-28] MEDS: Losartan Potassium 25 MG TABLET PO (09:59)
[2024-05-28] MEDS: Tamsulosin HCL 0.4 MG CAPSULE 0.8 MG PO (09:59)
[2024-05-28] MEDS: Ascorbic Acid 500 MG TABLET 1000 MG PO (09:59)
[2024-05-28] MEDS: Torsemide 20 MG TABLET PO (10:00)
[2024-05-28] MEDS: traZODone HCL 50 MG TABLET PO (10:00)
[2024-05-28] MEDS: Aspirin 81 MG TAB.CHEW PO (10:00)
[2024-05-28] MEDS: Ferrous Sulfate 324 MG TABLET.DR PO (10:00)
[2024-05-28] MEDS: Apixaban 5 MG TABLET PO ×2 (10:00→21:57)
[2024-05-28] MEDS: QUEtiapine Fumarate 25 MG TABLET 12.5 MG PO (10:00)
[2024-05-28] MEDS: 0.9 % Sodium Chloride Flush 3 ML SYRINGE IVFLUSH (10:01)
[2024-05-28] MEDS: Finasteride 5 MG TABLET PO (10:01)
[2024-05-28 10:48] LABS: Glucose, Whole Blood 140 mg/dL (60-115)
--- NOTE | 2024-05-28 16:22 | HO.PM.IMPN ---
Subjective Subjective Date of Service: 05/28/24 Interval History: uti Review of Systems somewhat able to answer few questions no fevers Physical Exam Vital Signs: Vital Signs: Last Vital Signs Temp 97.9 F 05/28/24 15:41 Pulse 63 05/28/24 15:41 Resp 16 05/28/24 15:41 BP 151/66 H 05/28/24 15:41 Pulse Ox 95 05/28/24 15:41 O2 Del Method Room Air 05/28/24 15:41 BMI result Body Mass Index 32.5 Appearance: Alert.? Oriented X1. cvs: rrr, [id number]. res: clear to auscultation ,no rhonchii or wheezing abd: no rebound or guarding ,nt, bs present. ext pulses present , no cyanosis . neuro: nonfocal. Objective Data Active Medications Acetaminophen (Acetaminophen Supp 650 Mg Supp.Rect) 650 mg [place] Q6H PRN PRN Reason: Pain, Mild (Pain Scale 1-3), fever or headache Albuterol/Ipratropium (Albuterol/Iprat 2.5/0.5mg 3 Ml Ampul.Neb) 3 ml INHALE RQ4H PRN PRN Reason: Wheezing Apixaban (Apixaban 5 Mg Tablet) 5 mg PO BID [facility] Last Admin: 05/28/24 10:00 Dose: 5 mg Documented By: SINDI Ascorbic Acid (Ascorbic Acid 500 Mg Tablet) 1,000 mg PO DAILY [facility] Last Admin: 05/28/24 09:59 Dose: 1,000 mg Documented By: SINDI Aspirin (Aspirin 81 Mg Tab.Chew) 81 mg PO DAILY [facility] Last Admin: 05/28/24 10:00 Dose: 81 mg Documented By: SINDI Cefuroxime Axetil (Cefuroxime Axetil 500 Mg Tablet) 500 mg PO BID [facility] Last Admin: 05/28/24 11:19 Dose: Not Given Documented By: SINDI Non-Admin Reason: given in OR Doxazosin Mesylate (Doxazosin Mesylate 2 Mg Tablet) 4 mg PO BEDTIME [facility] Last Admin: 05/27/24 21:29 Dose: 4 mg Documented By: ROGERIO Ferrous Sulfate (Ferrous Sulfate 324 Mg Tablet.) 324 mg PO DAILY [facility] Last Admin: 05/28/24 10:00 Dose: 324 mg Documented By: SINDI Finasteride (Finasteride 5 Mg Tablet) 5 mg PO DAILY [facility] Last Admin: 05/28/24 10:01 Dose: 5 mg Documented By: SINDI Glucose (Glucose Gel 15 Gm Gel..Gram.) 15 gm PO Q15M PRN; Protocol PRN Reason: per Hypoglycemia Standing Ord. Haloperidol Lactate (Haloperidol Lactate 5 Mg/Ml Vial) 2.5 mg IM ONCE PRN PRN Reason: delirium Last Admin: 05/26/24 23:10 Dose: 2.5 mg Documented By: GONZALO Dextrose (D10) 250 mls @ 750 mls/hr IV Q15M PRN; Protocol PRN Reason: per Hypoglycemia Standing Ord. Meropenem 1 gm/ Sodium (Chloride) 100 mls @ 200 mls/hr IV Q8H [facility] Last Infusion: 05/28/24 10:46 Dose: Infused Documented By: SINDI Dextrose/Sodium Chloride (D5ns) 1,000 mls @ 100 mls/hr IVCONT .Q10H [facility] Last Admin: 05/28/24 09:45 Dose: 100 mls/hr Documented By: SINDI Insulin Glargine (Insulin Glargine,Hum.Rec.Anlog 100 Unit/Ml 10 Ml Vial) 10 unit SUBCUT BEDTIME [facility] Last Admin: 05/27/24 21:29 Dose: 10 unit Documented By: ROGERIO Insulin Human Lispro (Insulin Lispro 100 Unit/Ml 3 Ml Vial) 0 unit SUBCUT QIDACHS [facility]; Protocol Last Admin: 05/28/24 10:45 Dose: Not Given Documented By: SINDI Non-Admin Reason: No Insulin Coverage Loperamide HCl (Loperamide Hcl 2 Mg Capsule) 2 mg PO Q3H PRN PRN Reason: Diarrhea Losartan Potassium (Losartan Potassium 25 Mg Tablet) 25 mg PO DAILY [facility]; Protocol Last Admin: 05/28/24 09:59 Dose: 25 mg Documented By: SINDI Melatonin (Melatonin 3 Mg Tablet) 3 mg PO BEDTIME PRN PRN Reason: Insomnia Polyethylene Glycol (Polyethylene Glycol 3350 17 Gm Powd.Pack) 17 gm PO Q48H [facility] Last Admin: 05/27/24 13:03 Dose: 17 gm Documented By: CHEYANNE Quetiapine Fumarate (Quetiapine Fumarate 25 Mg Tablet) 12.5 mg PO BID [facility] Last Admin: 05/28/24 10:00 Dose: 12.5 mg Documented By: SINDI Senna (Sennosides 8.6 Mg Tablet) 17.2 mg PO BEDTIME [facility] Last Admin: 05/27/24 21:26 Dose: 17.2 mg Documented By: ROGERIO Sodium Biphosphate/Sodium Phosphate (Sodium Phosphate,Carver-Dibasic 133 Ml Enema) 133 ml [place] DAILY [facility] Last Admin: 05/28/24 10:02 Dose: Not Given Documented By: SINDI Non-Admin Reason: Patient Refused Sodium Chloride (0.9 % Sodium Chloride Flush 3 Ml Syringe) 3 ml IVFLUSH QSHIFT [facility] Last Admin: 05/28/24 15:41 Dose: Not Given Documented By: SILVINO Non-Admin Reason: IV Running Tamsulosin HCl (Tamsulosin Hcl 0.4 Mg Capsule) 0.8 mg PO DAILY [facility] Last Admin: 05/28/24 09:59 Dose: 0.8 mg Documented By: SINDI Torsemide (Torsemide 20 Mg Tablet) 20 mg PO DAILY [facility]; Protocol Last Admin: 05/28/24 10:00 Dose: 20 mg Documented By: SINDI Trazodone HCl (Trazodone Hcl 50 Mg Tablet) 50 mg PO DAILY [facility] Last Admin: 05/28/24 10:00 Dose: 50 mg Documented By: SINDI Vitamin D (Cholecalciferol (Vitamin D3) 25 Mcg Tablet) 25 mcg PO DAILY [facility] Last Admin: 05/28/24 09:59 Dose: 25 mcg Documented By: SINDI Labs 05/27/24 12:53 05/27/24 12:53 Labs: Laboratory Results - last 24 hr 05/27/24 05/27/24 05/28/24 16:19 20:20 08:28 POC Glucose 178 H 234 H 110 05/28/24 10:44 POC Glucose 140 H Microbiology Microbiology Results: Microbiology 05/24/24 Unknown Urine Culture - Final Urine clean catch - Clean Catch Midstream Escherichia coli Proteus mirabilis 05/26/24 17:31 Blood Culture - Preliminary Blood - Venous No growth after 24 hours. 05/26/24 17:31 Blood Culture - Preliminary Blood - Venous No growth after 24 hours. Assessment and Plan (1) UTI (urinary tract infection): Status: Acute Plan 84-year-old male with a past medical history of diabetes, muscular dystrophy, cardiac arrhythmias status post pacemaker and AICD, dementia with slow speech pattern who presents to the emergency room with acute onset mental status changes and aggressive behavior towards staff at the [facility]. He was found to have a UTI and concerns for acute stroke. He will be admitted for further workup. Acute metabolic encephalopathy most liekly r/t infection continue abx evaluated by neurology, less likely CVA more likely acute metabolic encephalopathy related to UTI with underlying degenerative dementia dementia /behavioural disturbance : received halodol last night added seroquel 25 mg bid psych eval Acute UTI no sepsis IV meropenem (initiated 05/26) Follow cultures-Ecoli:senstive to ertapenem and nitrofurantoin, intermediate to levofloxacin Id evaluation added,blood culture. 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 Turn and Reposition every 2 hours and as needed for patient comfort.? Use pillows or wedges to support off loading positions. 2. Off Load all bony prominences with use of pillows and heel boots if needed.? Apply Preventative foams where needed. ? 3. Monitor for incontinence and moisture control, use barrier creams when needed for prevention and treatment. 4. Provide adequate and supplemental nutrition.? 5. Continue low air loss mattress. 6. When applicable maintain blood glucose levels per Providers order. 7. Sacrum and Bilateral Ischium - Off Load Pressure - Cleanse with PH balance spray or wipes, pat dry. ?Apply thin layer of Triad to wound bed - only pat and dab no scrub and rub when soiling occurs. Reapply thin layer PRN after each episode of incontinence. DNR/DNI ongoing ongoing inpatient stay for management of acute metabolic encephalopathy related to UTI on IV antibiotics requiring close monitoring of mentation Quality Stroke Does the patient have a stroke diagnosis?: No VTE Prior VTE?: No VTE Risk Level:: Medical - moderate - high VTE Device Contraindication: N/A - Device Ordered VTE Drug Contraindication: N/A - Med Ordered
[2024-05-28 17:11] LABS: Glucose, Whole Blood 161 mg/dL (60-115)
[2024-05-28] MEDS: Insulin Lispro 100 UNIT/ML 3 ML VIAL SUBCUT ×2 (17:16→21:56)
[2024-05-28 20:26] LABS: Glucose, Whole Blood 210 mg/dL (60-115)
[2024-05-28] MEDS: Insulin Glargine,Hum.rec.anlog 100 UNIT/ML 10 ML VIAL 10 UNIT SUBCUT (21:56)
[2024-05-28] MEDS: Sennosides 8.6 MG TABLET 17.2 MG PO (21:57)
[2024-05-28] MEDS: Doxazosin Mesylate 2 MG TABLET 4 MG PO (21:57)
[2024-05-28] MEDS: cefuroxime axetiL 500 MG TABLET PO (21:57)
[2024-05-29] VITALS (9 sets, daily range): BP systolic 143–166; BP diastolic 63–77; PULSE 63–71; RESP 14–20; TEMP 35.9–36.4; O2SAT 95–98
[2024-05-29 08:13] LABS: Glucose, Whole Blood 116 mg/dL (60-115)
[2024-05-29] MEDS: Apixaban 5 MG TABLET PO ×2 (08:20→20:41)
[2024-05-29] MEDS: Torsemide 20 MG TABLET PO (08:20)
[2024-05-29] MEDS: Tamsulosin HCL 0.4 MG CAPSULE 0.8 MG PO (08:21)
[2024-05-29] MEDS: Ascorbic Acid 500 MG TABLET 1000 MG PO (08:21)
[2024-05-29] MEDS: cefuroxime axetiL 500 MG TABLET PO (08:22)
[2024-05-29] MEDS: Finasteride 5 MG TABLET PO (08:22)
[2024-05-29] MEDS: Aspirin 81 MG TAB.CHEW PO (08:22)
[2024-05-29] MEDS: traZODone HCL 25 MG HALFTAB PO (08:22)
[2024-05-29] MEDS: Ferrous Sulfate 324 MG TABLET.DR PO (08:22)
[2024-05-29] MEDS: Cholecalciferol (Vitamin D3) 25 MCG TABLET PO (08:22)
[2024-05-29] MEDS: Losartan Potassium 25 MG TABLET PO (08:22)
[2024-05-29] MEDS: 0.9 % Sodium Chloride Flush 3 ML SYRINGE IVFLUSH ×3 (08:23→20:43)
--- NOTE | 2024-05-29 10:41 | MHC.CM.PN ---
Addendum entered by Dayana Oliveira RN 05/29/24 15:49: PT NOT DISCHARGING UNTIL SATURDAY AT 1PM VIA [facility] REQUESTING PT GET TOMORROWS DOSE OF ERTAPNEM PRIOR TO TRANSFER, HOSPITALIST/NSG UPDATED AND IMM DELIEVERED TO PT'S [facility] [phone]. Original Note: PER HOSPITALIST PT TO BE MEDICALLY CLEARED AFTER MIDLINE AND WILL NEED 4 MORE DAYS IV ERTAPENEM, BO CONTACTED NURSE LAVELL ON PT'S UNIT AT [facility] AND WAITING FOR LAVELL/[facility] TO CALL BACK.
[2024-05-29 11:42] LABS: Glucose, Whole Blood 204 mg/dL (60-115)
[2024-05-29] MEDS: Insulin Lispro 100 UNIT/ML 3 ML VIAL SUBCUT ×3 (11:50→20:42)
[2024-05-29] MEDS: polyethylene glycoL 3350 17 GM POWD.PACK PO (11:53)
--- NOTE | 2024-05-29 11:55 | MHC.CLN ---
F/U PT WITH INCREASED NUTRITION RISK R/T PRESSURE INJURY PO INTAKE 75-100% DIET RX: 2000DM-APPROPRIATE PT RECEIVING ENSURE MAX BID PROVIDES 300KCALS, 60G PROTEIN MONITOR PO INTAKE AND ENCOURAGE SUPPLEMENT
--- NOTE | 2024-05-29 12:05 | P.DS_ITS ---
DS: Providers Provider Date of Service: 05/29/24 Date of admission: 05/24/24 14:32 Date of discharge: 05/29/24 Primary care physician: Dima Murphy MD Consults: 05/24/24 14:34 Consult to Neurology Routine Consulting Provider: [facility] Reason for consultation: suspected stroke 05/25/24 11:50 Consult to Wound Care Routine Reason for consultation: dti to coccyx 05/26/24 09:18 Consult to Infectious Diseases Routine Consulting Provider: [facility] Reason for consultation: possible esbl uti Has provider been notified: No 05/27/24 10:52 Consult to Psychiatry Routine Consulting Provider: [facility] Reason for consultation: Dementia with behavior agitation Has provider been notified: No 05/27/24 14:40 Consult to Wound Care Routine Reason for consultation: sacrum deep tissue injury Has provider been notified: No DS: Diagnosis Discharge Diagnosis (1) UTI (urinary tract infection): Status: Acute DS: Summary Hospital Course Hospital Course: 84-year-old male with a past medical history of diabetes, AFib on Coumadin, arrhythmias with pacemaker and AICD, muscular dystrophy myotonic dystrophy type 2, left AKA, dementia with slow speech pattern who was sent to the emergency room from the [place] [facility] for reported acute mental status changes and aggression towards staff. He arrived to the ED as a stroke alert. CT head and CTA of the head and neck are negative for large vessel occlusion. Patient is seen and examined in the emergency room. His is bedside. She reports last speaking with yesterday evening. She states that normally he is able to slowly converse but does have intermittent word-finding difficulties. Denies prior acute aggression as reported today. Does report prior urosepsis. Workup in the ED which included basic blood work and imaging studies revealed a UA suggestive of UTI. Head imaging is negative for acute findings. He remains aphasic with eyes closed and unable/unwilling to follow commands. He has been given IV ceftriaxone and will now be admitted for further care. hospital course: patient came with Acute metabolic encephalopathy ,found to have uti -started on iv antibiotics ,urine culture and blood cultures sent -urine culture possible esbl/proteus : switched to meropenem on 05/26/24 -seen by infectious dis ( final culture/ senstivities dicussed with micro also proteus is senstive to ertapenem also ): patient will need 5 more days ertapenem 1 gm iv daily cta /ct head: negative . seen by neuro:severe underlying degenerative dementia is suffering from metabolic toxic encephalopathy related to UTI. As far as brain or vascular disease is concerned, conservative approach is recommended as he would not qualify for any significant intervention. patient also had sundowning episode -seems menatation improving significantly - continue his baseline meds. plan: complete 5 more days ertapenem 1 gm iv daily above management discussed with patient's in detail length, she understand and in agreement with the above plan time spent 40 min. Time Attestation Total time managing care of this patient today: 40 mintues. Discharge Coordination Time (in mins): 40 min Quality: Safe Use of Opioids Does Pt have an Active Cancer Diagnosis on the Problem List?: No Quality: Stroke Does the patient have a stroke diagnosis?: No Physical Exam Vital Signs: Vital Signs: Last Vital Signs Temp 96.8 F 05/29/24 08:00 Pulse 64 05/29/24 08:00 Resp 18 05/29/24 08:00 BP 143/63 H 05/29/24 08:00 Pulse Ox 96 05/29/24 08:00 O2 Del Method Room Air 05/29/24 08:00 BMI result Body Mass Index 32.5 Appearance: more awake ,Alert (d/w seems near his baseline). cvs: rrr, [id number]. res: air entry fair ,no wheezing/rales abd: no rebound or guarding ,nt, bs present. ext pulses present , no cyanosis . neuro: nonfocal. DS: Data Data Completed and Pending Labs on day of discharge: Laboratory Results - last 24 hr 05/28/24 05/28/24 05/29/24 17:03 20:17 08:09 POC Glucose 161 H 210 H 116 H 05/29/24 11:38 POC Glucose 204 H Preliminary micro results at discharge 05/26/24 17:31 Blood Culture - Preliminary Blood - Venous No growth after 48 hours. 05/26/24 17:31 Blood Culture - Preliminary Blood - Venous No growth after 48 hours. Imaging Chest x-ray: Radiologist's impression: ITS Impressions Head CT 05/24/24 13:04 IMPRESSION: No acute intracranial process seen. There is a right frontal lobe encephalomalacia with chronic white matter changes. Chronic inflammatory changes right frontal, middle ethmoid and maxillary sinuses. This critical result was discussed with EVENS Lacey at 1:2 PM on 05/24/2024. It was ascertained that the content and urgency of the report was understood at the time of direct communication. Head/Neck CTA 05/24/24 13:31 IMPRESSION: -CTA head demonstrates no large vessel occlusion, saccular aneurysm, or dissection. -CTA and neck demonstrates complete focal stenosis of the left vertebral artery origin. 30% focal stenosis of the left cervical ICA. Otherwise, no hemodynamically significant stenosis, dissection, or aneurysm. Partially imaged right pleural effusion with partial right lower lobe collapse. Discharge Plan Discharge Anticipated Discharge Date/Time: 05/29/24 11:41 Patient Disposition: Xfer [facility] Discharge Diagnosis: toxic metabolic encephalopathy ,uti Referrals: [facility] [Outside] - 1 Day (RESUMPTION OF CARE) Dima Murphy MD [Primary Care Provider] - 1 Week Discharge Medications: New ertapenem 1 gram recon soln 1 g IV DAILY Qty: 5 0RF Continued Fleet Enema 19-7 gram/118 mL enema 197 ml NE DAILY 3 Days Qty: 133 0RF losartan 25 mg Tablet 25 mg PO DAILY ascorbic acid (vitamin C) 500 mg Tablet 1 g PO DAILY polyethylene glycol 3350 [Miralax] 17 gram powder in packet 17 g PO Q48H ipratropium-albuterol 0.5 mg-3 mg(2.5 mg base)/3 mL solution for nebulization 3 ml inhalation Q4-6H PRN (Reason: Wheezing) sennosides [Natural Senna Laxative] 8.6 mg tablet 17.2 mg PO BEDTIME Qty: 60 1RF finasteride 5 mg tablet 5 mg PO DAILY terazosin 5 mg capsule 5 mg PO BEDTIME insulin glargine 100 unit/mL (3 mL) insulin pen 13 unit subcut QPM insulin lispro 100 unit/mL insulin pen See Rx Instructions .ROUTE .COMPLEX Rx Instructions: SLIDING SCALE acetaminophen 325 mg tablet 650 mg PO Q12H apixaban 5 mg tablet 5 mg PO BID aspirin 81 mg tablet,chewable 81 mg PO DAILY cholecalciferol (vitamin D3) 25 mcg (1,000 unit) tablet 25 mcg PO DAILY ferrous fumarate 325 mg (106 mg iron) tablet 325 mg PO DAILY glipizide 5 mg tablet 5 mg PO DAILY melatonin 3 mg tablet 3 mg PO BEDTIME PRN (Reason: Insomnia) tamsulosin 0.4 mg capsule 0.8 mg PO DAILY torsemide 20 mg tablet 20 mg PO DAILY trazodone 50 mg tablet 50 mg PO DAILY loperamide 2 mg tablet 2 mg PO Q3H PRN (Reason: Diarrhea) Discharge Orders: Discharge Order (Routine); Ordered 05/29/24 Ordered By: Coty Ramsey Diet: Advance to usual diet Activity on Discharge: As tolerated Stand Alone Forms: Patient Portal Discharge page Print Language: Macedonian Care Plan Goals: patient came with Acute metabolic encephalopathy ,found to have uti -started on iv antibiotics ,urine culture and blood cultures sent -urine culture possible esbl/proteus : switched to meropenem on 05/26/24 -seen by infectious dis ( final culture/ senstivities dicussed ): patient will need 5 more days ertapenem 1 gm iv daily patient also had sundowning episode -seems menatation improving significantly - continue his baseline meds. Health Concerns: as above. Plan of Treatment: as above. Assessment: as above.
[2024-05-29] MEDS: Ertapenem Sodium 1 GM in 0.9 % Sodium Chloride 50 ML IV (12:40)
--- NOTE | 2024-05-29 15:02 | MHC.SL.SWA ---
Speech Pathologist Impression: Risk of aspiration Risk of Aspiration Due to: Neurological Condition Reduced Cognition Dysphasia Diet Status:No changes at this time Liquid Consistency and Strategies for Safe Swallow: Liquid Intake Recommendation: Thin Liquid Intake Strategies: Small Sips No Straws Solid Food Consistency: Dietary Recommendations: Regular Additional Modifications to Solid Foods: Recommend continue patient's baseline diet of REGULAR solids and THIN liquids, pills WHOLE in PUREE. Patient to be directly supervised with all PO intake, ensure patient is taking small sips, one sip at a time, and avoiding the use of straws. COMBER TENDER will continue to follow during hospitalization, recommend COMBER TENDER at [facility] f/u once patient returns to facility. Oral Medication Intake: Whole with Puree Please contact the pharmacy regarding appropriate crushable or liquid drug formulations that are available whenever modified delivery is recommended. Compensatory Strategies and Precautions to be Taken for Safe Swallow: Sitting Upright (90 deg) No Straw Small Bites and Sips Alternate Liquids/Solids Rate of Ingestion Change Supervision While Eating and Drinking for Safe Swallow: Total Supervision (1:1) Swallowing Recommended Treatments: Compens. Strategy Educat. Recommendation for Speech: Inpatient ST [employer] Machine Operator Clinican/Clinical Fellow: No Supervisory Statement: I have reviewed and agree with the student/clinical fellow's documentation: N/A Speech Language Pathologist: Evelyn Sherwood M.A., CCC-COMBER TENDER
--- NOTE | 2024-05-29 15:52 | P.PNIM_ITS ---
Subjective Subjective Date of Service: 05/29/24 Interval History: uti -esbl Review of Systems need picc line seems improved to baseline Physical Exam 2 Vital Signs: Vital Signs: Last Vital Signs Temp 97.3 F 05/29/24 12:00 Pulse 66 05/29/24 12:00 Resp 18 05/29/24 12:00 BP 165/70 H 05/29/24 12:00 Pulse Ox 96 05/29/24 12:00 O2 Del Method Room Air 05/29/24 12:00 BMI result Body Mass Index 32.5 Appearance: more awake ,Alert (d/w seems near his baseline). cvs: rrr, [id number]. res: air entry fair ,no wheezing/rales abd: no rebound or guarding ,nt, bs present. ext pulses present , no cyanosis . neuro: nonfoca Objective Data Active Medications Acetaminophen (Acetaminophen Supp 650 Mg Supp.Rect) 650 mg LA Q6H PRN PRN Reason: Pain, Mild (Pain Scale 1-3), fever or headache Albuterol/Ipratropium (Albuterol/Iprat 2.5/0.5mg 3 Ml Ampul.Neb) 3 ml INHALE RQ4H PRN PRN Reason: Wheezing Apixaban (Apixaban 5 Mg Tablet) 5 mg PO BID [facility] Last Admin: 05/29/24 08:20 Dose: 5 mg Documented By: YSABEL Ascorbic Acid (Ascorbic Acid 500 Mg Tablet) 1,000 mg PO DAILY [facility] Last Admin: 05/29/24 08:21 Dose: 1,000 mg Documented By: YSABEL Aspirin (Aspirin 81 Mg Tab.Chew) 81 mg PO DAILY [facility] Last Admin: 05/29/24 08:22 Dose: 81 mg Documented By: YSABEL Doxazosin Mesylate (Doxazosin Mesylate 2 Mg Tablet) 4 mg PO BEDTIME [facility] Last Admin: 05/28/24 21:57 Dose: 4 mg Documented By: SILVINO Ferrous Sulfate (Ferrous Sulfate 324 Mg Tablet.) 324 mg PO DAILY [facility] Last Admin: 05/29/24 08:22 Dose: 324 mg Documented By: YSABEL Finasteride (Finasteride 5 Mg Tablet) 5 mg PO DAILY [facility] Last Admin: 05/29/24 08:22 Dose: 5 mg Documented By: YSABEL Glucose (Glucose Gel 15 Gm Gel..Gram.) 15 gm PO Q15M PRN; Protocol PRN Reason: per Hypoglycemia Standing Ord. Dextrose (D10) 250 mls @ 750 mls/hr IV Q15M PRN; Protocol PRN Reason: per Hypoglycemia Standing Ord. Insulin Glargine (Insulin Glargine,Hum.Rec.Anlog 100 Unit/Ml 10 Ml Vial) 10 unit SUBCUT BEDTIME [facility] Last Admin: 05/28/24 21:56 Dose: 10 unit Documented By: SILVINO Insulin Human Lispro (Insulin Lispro 100 Unit/Ml 3 Ml Vial) 0 unit SUBCUT QIDACHS [facility]; Protocol Last Admin: 05/29/24 11:50 Dose: 4 unit Documented By: YSABEL Loperamide HCl (Loperamide Hcl 2 Mg Capsule) 2 mg PO Q3H PRN PRN Reason: Diarrhea Losartan Potassium (Losartan Potassium 25 Mg Tablet) 25 mg PO DAILY [facility]; Protocol Last Admin: 05/29/24 08:22 Dose: 25 mg Documented By: YSABEL Melatonin (Melatonin 3 Mg Tablet) 3 mg PO BEDTIME PRN PRN Reason: Insomnia Polyethylene Glycol (Polyethylene Glycol 3350 17 Gm Powd.Pack) 17 gm PO Q48H [facility] Last Admin: 05/29/24 11:53 Dose: 17 gm Documented By: YSABEL Senna (Sennosides 8.6 Mg Tablet) 17.2 mg PO BEDTIME [facility] Last Admin: 05/28/24 21:57 Dose: 17.2 mg Documented By: SILVINO Sodium Biphosphate/Sodium Phosphate (Sodium Phosphate,[place]-Dibasic 133 Ml Enema) 133 ml LA DAILY [facility] Last Admin: 05/29/24 09:16 Dose: Not Given Documented By: YSABEL Non-Admin Reason: Patient Refused Sodium Chloride (0.9 % Sodium Chloride Flush 3 Ml Syringe) 3 ml IVFLUSH QSHIFT [facility] Last Admin: 05/29/24 08:23 Dose: 3 ml Documented By: YSABEL Tamsulosin HCl (Tamsulosin Hcl 0.4 Mg Capsule) 0.8 mg PO DAILY [facility] Last Admin: 05/29/24 08:21 Dose: 0.8 mg Documented By: YSABEL Torsemide (Torsemide 20 Mg Tablet) 20 mg PO DAILY [facility]; Protocol Last Admin: 08/09/24 08:20 Dose: 20 mg Documented By: YSABEL Trazodone HCl (Trazodone Hcl 25 Mg Halftab) 25 mg PO DAILY [facility] Last Admin: 05/29/24 08:22 Dose: 25 mg Documented By: YSABEL Vitamin D (Cholecalciferol (Vitamin D3) 25 Mcg Tablet) 25 mcg PO DAILY [facility] Last Admin: 05/29/24 08:22 Dose: 25 mcg Documented By: YSABEL Labs 05/27/24 12:53 05/27/24 12:53 Labs: Laboratory Results - last 24 hr 05/28/24 05/28/24 05/29/24 17:03 20:17 08:09 POC Glucose 161 H 210 H 116 H 05/29/24 11:38 POC Glucose 204 H Microbiology Microbiology Results: Microbiology 05/24/24 Unknown Urine Culture - Final Urine clean catch - Clean Catch Midstream Escherichia coli Proteus mirabilis 05/26/24 17:31 Blood Culture - Preliminary Blood - Venous No growth after 48 hours. 05/26/24 17:31 Blood Culture - Preliminary Blood - Venous No growth after 48 hours. Assessment and Plan (1) UTI (urinary tract infection): Status: Acute Plan 84-year-old male with a past medical history of diabetes, muscular dystrophy, cardiac arrhythmias status post pacemaker and AICD, dementia with slow speech pattern who presents to the emergency room with acute onset mental status changes and aggressive behavior towards staff at the [facility]. He was found to have a UTI and concerns for acute stroke. He will be admitted for further workup. Acute metabolic encephalopathy most liekly r/t infection continue abx evaluated by neurology, less likely CVA more likely acute metabolic encephalopathy related to UTI with underlying degenerative dementia dementia /behavioural disturbance : received halodol last night added seroquel 25 mg bid psych eval Acute UTI no sepsis IV meropenem (initiated 05/26) Follow cultures-Ecoli:senstive to ertapenem and nitrofurantoin, intermediate to levofloxacin Id evaluation added,blood culture. 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 Turn and Reposition every 2 hours and as needed for patient comfort.? Use pillows or wedges to support off loading positions. 2. Off Load all bony prominences with use of pillows and heel boots if needed.? Apply Preventative foams where needed. ? 3. Monitor for incontinence and moisture control, use barrier creams when needed for prevention and treatment. 4. Provide adequate and supplemental nutrition.? 5. Continue low air loss mattress. 6. When applicable maintain blood glucose levels per Providers order. 7. Sacrum and Bilateral Ischium - Off Load Pressure - Cleanse with PH balance spray or wipes, pat dry. ?Apply thin layer of Triad to wound bed - only pat and dab no scrub and rub when soiling occurs. Reapply thin layer PRN after each episode of incontinence. DNR/DNI ongoing ongoing inpatient stay for management-picc line /iv antibiotics Quality Stroke Does the patient have a stroke diagnosis?: No VTE Prior VTE?: No VTE Risk Level:: Medical - moderate - high VTE Device Contraindication: N/A - Device Ordered VTE Drug Contraindication: N/A - Med Ordered
--- NOTE | 2024-05-29 16:08 | HO.MIDLINE_ITS ---
Midline Insertion MIDLINE INSERTION Diagnosis: UTI ESBL Indication: Intermediate Antibiotics Pertinent Labs: Reviewed Technique: Using sterile technique including cap and mask, glove and drape, the arm was prepped and draped in the usual sterile fashion of full barrier technique with CHG. Using ultrasound guidance, the left brachial vein access was obtained in a single attempt by this RN. A NonPASV 20 guage 8 cm Midline was positioned. The procedure was performed in S272. Ultrasound was used to document vein patency and for needle entry. A formal ultrasound picture was recorded. Vascular Plate Take Out Worker has released the line for use and it is currently dressed with a StatLock, Tegaderm, and CHG disc. Verification has been performed for blood return and line patency. Arm Circumference: 30 cm Equipment: Bard PowerGlide ST Midline Catheter Catheter Type:20 guage 8 cm NON-PASV Catheter Lot #: [id number]
[2024-05-29] MEDS: Albuterol/Iprat 2.5/0.5MG 3 ML AMPUL.NEB INHALE (16:21)
--- NOTE | 2024-05-29 16:26 | PC.RT ---
pt unable to wear cpap , was very confused last nith and not able to tolerate it.
[2024-05-29 16:56] LABS: Glucose, Whole Blood 214 mg/dL (60-115)
[2024-05-29] MEDS: Melatonin 3 MG TABLET PO (20:41)
[2024-05-29] MEDS: Doxazosin Mesylate 2 MG TABLET 4 MG PO (20:41)
[2024-05-29] MEDS: Insulin Glargine,Hum.rec.anlog 100 UNIT/ML 10 ML VIAL 10 UNIT SUBCUT (20:42)
[2024-05-29] MEDS: Sennosides 8.6 MG TABLET 17.2 MG PO (20:42)
[2024-05-29 20:43] LABS: Glucose, Whole Blood 258 mg/dL (60-115)
[2024-05-30] VITALS: BP 141/61; PULSE 68; RESP 18; TEMP 36.4; O2SAT 96
[2024-05-30 04:00] VITALS: BP 145/67; PULSE 70; RESP 18; TEMP 36.1; O2SAT 95
[2024-05-30 07:45] LABS: Glucose, Whole Blood 135 mg/dL (60-115)
[2024-05-30 07:48] VITALS: BP 171/82; PULSE 63; RESP 17; TEMP 37; O2SAT 96
[2024-05-30] MEDS: Ascorbic Acid 500 MG TABLET 1000 MG PO (08:44)
[2024-05-30] MEDS: Cholecalciferol (Vitamin D3) 25 MCG TABLET PO (08:44)
[2024-05-30] MEDS: Tamsulosin HCL 0.4 MG CAPSULE 0.8 MG PO (08:44)
[2024-05-30] MEDS: Torsemide 20 MG TABLET PO (08:44)
[2024-05-30] MEDS: Aspirin 81 MG TAB.CHEW PO (08:44)
[2024-05-30] MEDS: traZODone HCL 25 MG HALFTAB PO (08:44)
[2024-05-30] MEDS: Losartan Potassium 25 MG TABLET PO (08:44)
[2024-05-30] MEDS: Finasteride 5 MG TABLET PO (08:44)
[2024-05-30] MEDS: Apixaban 5 MG TABLET PO (08:44)
--- NOTE | 2024-05-30 08:44 | MHC.CM.PN ---
Pt has been medically cleared for DC. He will return to the [facility] via BLS this afternoon.
[2024-05-30] MEDS: Ferrous Sulfate 324 MG TABLET.DR PO (08:46)
[2024-05-30] MEDS: Ertapenem Sodium 1 GM in 0.9 % Sodium Chloride 50 ML IV (09:48)
[2024-05-30 11:37] VITALS: BP 154/73; PULSE 64; RESP 16; TEMP 37; O2SAT 96
[2024-05-30 11:45] LABS: Glucose, Whole Blood 186 mg/dL (60-115)
[2024-05-30] MEDS: Insulin Lispro 100 UNIT/ML 3 ML VIAL SUBCUT (12:42)
[2024-05-30 15:16] VITALS: BP 119/58; PULSE 65; RESP 20; TEMP 36.4; O2SAT 96
[2024-05-30 16:16] LABS: Glucose, Whole Blood 140 mg/dL (60-115)
== END 2024-05-30 16:54 | DRG 689 ==
LOC: HO.ED 14:06 → HO.EDOVER 14:38 → HO.IMC 19:34
PROVIDERS: Physician Assistant; Admitting Provider Family Medicine; Emergency Provider Emergency Medicine; PCP Internal Medicine Medical Oncology; Visit Provider Internal Medicine
DX: N39.0 Urinary tract infection, site not specified (principal); G92.8 Other toxic encephalopathy; Z16.12 Extended spectrum beta lactamase (ESBL) resistance; F03.918 Unspecified dementia, unspecified severity, with other behavioral disturbance; R47.01 Aphasia; I25.10 Atherosclerotic heart disease of native coronary artery without angina pectoris; G71.11 Myotonic muscular dystrophy; I10 Essential (primary) hypertension; E11.9 Type 2 diabetes mellitus without complications; Z66 Do not resuscitate; N40.1 Benign prostatic hyperplasia with lower urinary tract symptoms; R39.14 Feeling of incomplete bladder emptying; R33.8 Other retention of urine; L89.156 Pressure-induced deep tissue damage of sacral region; I48.91 Unspecified atrial fibrillation; B96.20 Unspecified Escherichia coli [E. coli] as the cause of diseases classified elsewhere; Z89.612 Acquired absence of left leg above knee; Z95.810 Presence of automatic (implantable) cardiac defibrillator; Z87.891 Personal history of nicotine dependence; Z79.4 Long term (current) use of insulin; Z79.01 Long term (current) use of anticoagulants; Z79.82 Long term (current) use of aspirin; Z79.84 Long term (current) use of oral hypoglycemic drugs; Z79.899 Other long term (current) drug therapy
CPT/HCPCS: 36410; 36415; 70450; 70496; 70498; 80048; 80061; 81001; 82947; 84484; 85025; 85027; 85610; 85730; 87040; 87086; 87088; 87186; 92526; 92610; 93005; 94640; 99285; J0696; J1335; J1630; J1650; J2185; Q9967

== ENCOUNTER → 2024-05-24 12:51 | Outpatient (BNV) | payer MEDICARE, MEDICAID, SELFPAY | PROVIDERS: Admitting Provider Family Medicine; Emergency Provider Emergency Medicine; PCP Internal Medicine Medical Oncology; Visit Provider Internal Medicine Cardiovascular Disease | DX: R94.31 Abnormal electrocardiogram [ECG] [EKG] (principal) | CPT/HCPCS: 93010 ==

== ENCOUNTER → 2024-05-24 14:32 | Outpatient (BNV) | payer MEDICARE, MEDICAID, SELFPAY | PROVIDERS: Admitting Provider Family Medicine; Emergency Provider Emergency Medicine; PCP Internal Medicine Medical Oncology; Visit Provider Internal Medicine | DX: R41.0 Disorientation, unspecified (principal); R33.9 Retention of urine, unspecified | CPT/HCPCS: 99222 ==

== ENCOUNTER → 2024-05-24 14:32 | Outpatient (BNV) | payer MEDICARE, MEDICAID, SELFPAY | PROVIDERS: Admitting Provider Family Medicine; Emergency Provider Emergency Medicine; PCP Internal Medicine Medical Oncology; Visit Provider Psychiatry & Neurology Neurology | DX: R41.0 Disorientation, unspecified (principal); G93.41 Metabolic encephalopathy; N39.0 Urinary tract infection, site not specified | CPT/HCPCS: 99222 ==

== ENCOUNTER → 2024-05-24 14:32 | Outpatient (BNV) | payer MEDICARE, MEDICAID, SELFPAY | PROVIDERS: Admitting Provider Family Medicine; Emergency Provider Emergency Medicine; PCP Internal Medicine Medical Oncology; Visit Provider Clinical Nurse Specialist Psychiatric/Mental Health | DX: R41.0 Disorientation, unspecified (principal); R33.9 Retention of urine, unspecified | CPT/HCPCS: 99222 ==

== ENCOUNTER → 2024-05-24 14:32 | Outpatient (BNV) | payer MEDICARE, MEDICAID, SELFPAY | PROVIDERS: Admitting Provider Family Medicine; Emergency Provider Emergency Medicine; PCP Internal Medicine Medical Oncology; Visit Provider Family Medicine | DX: N39.0 Urinary tract infection, site not specified (principal) | CPT/HCPCS: 99223; 99232; 99239 ==

== ENCOUNTER 2024-06-01 07:38 | Outpatient (REF) | payer MEDICARE, MEDICAID, SELFPAY ==
[2024-06-01 07:42] LABS: MANUAL DIFF FLAG NO
[2024-06-01 08:24] LABS: Basophils Percent Auto 0.6 % (0-2); Eosinophils Absolute Auto 0.5 X10*3/uL (0.0-0.4); Eosinophils Percent Auto 8.7 % (0-4); Hematocrit 35.1 % (42.0-52.0); Hemoglobin 11.6 g/dl (14.0-18.0); Imm Gran Abs Auto 0.07 X10*3/uL (0.00-0.03); Imm Gran Pct Auto 1.3 % (0.0-0.4); Lymphocytes Absolute Auto 1.8 X10*3/uL (1.2-4.9); Lymphocytes Percent Auto 33.1 % (20-40); Mean Corpuscular Hemoglobin 32.3 pg (27.0-33.0); Mean Corpuscular Volume 97.8 fL (80.0-98.0); Mean Platelet Volume 9.2 fL (9.4-12.4); Monocytes Absolute Auto 0.6 X10*3/uL (0.1-1.2); Monocytes Percent Auto 10.4 % (2-11); Neutrophils Absolute Auto 2.4 x10*3/uL (2.0-8.3); Neutrophils Percent Auto 45.9 % (45-73); Platelet Count 158 X10*3/uL (160-400); Red Blood Count 3.59 X10*6/uL (4.60-5.80); Red Cell Distribution Width 13.1 % (11.0-16.0); White Blood Count 5.3 X10*3/uL (4.8-10.8)
[2024-06-01 08:39] LABS: Anion Gap 11 (12-20); Blood Urea Nitrogen 33 mg/dL (9-16); Carbon Dioxide 26 mmol/L (22-29); Chloride 111 mmol/L (96-108); Estimated Glomerular Filt Rate > 60; Glucose Random 95 mg/dL (60-115); Potassium 3.9 mmol/L (3.3-5.1); Sodium 144 mmol/L (135-145)
== END 2024-06-01 07:39 | disposition home or self-care (01) ==
LOC: HO.HSH2E 07:38
PROVIDERS: Visit Provider Nurse Practitioner
DX: N39.0 Urinary tract infection, site not specified (principal)
CPT/HCPCS: 36415; 80048; 85025

== ENCOUNTER 2024-06-09 13:34 | Outpatient (REF) | payer MEDICARE, MEDICAID, SELFPAY ==
[2024-06-09 13:50] LABS: Appearance Urine Clear; Color Urine Yellow; Glucose Urine UA Negative (Negative); Leukocyte Esterase Urine Negative (Negative); Nitrite Urine Negative (Negative); Urine Blood Negative (Negative); Urine Ketones Negative (Negative); Urine Protein Negative (Neg-Trace)
[2024-06-09 13:52] LABS: Bacteria Urine None Seen (None Seen); Hyaline Casts Urine 0-2 /LPF (0-2); RBC Urine 0-2 /HPF (0-2); Squamous Epithelial Cell Urine 0-2 /HPF (0-2); WBC Urine 0-5 /HPF (0-5)
== END 2024-06-09 13:35 | disposition home or self-care (01) ==
LOC: HO.HSH2E 13:34
PROVIDERS: Visit Provider Internal Medicine Interventional Cardiology
DX: R41.82 Altered mental status, unspecified (principal)
CPT/HCPCS: 81001

== ENCOUNTER 2024-06-24 06:54 | Outpatient (REF) | payer MEDICARE, MEDICAID, SELFPAY ==
[2024-06-24 07:42] LABS: B Type Natriuretic Peptide 136 pg/mL (<100)
== END 2024-06-24 06:55 | disposition home or self-care (01) ==
LOC: HO.HSH2E 06:54
PROVIDERS: Visit Provider Internal Medicine Endocrinology, Diabetes & Metabolism
DX: I50.9 Heart failure, unspecified (principal)
CPT/HCPCS: 36415; 83880

== ENCOUNTER 2024-07-05 12:46 | Emergency (ER) | payer OTHER, SELFPAY ==
--- NOTE | ~2024-07-05 | XR_ITS ---
EXAMINATION: XR CHEST CLINICAL INFORMATION: Cough hypothermia COMPARISON: None available. TECHNIQUE: Frontal view of the chest was obtained. FINDINGS: Small bilateral pleural effusions, right greater than left with subjacent atelectasis. Potential loculated effusion within the right mid lung field versus consolidative focus. Interstitial prominence. No pneumothorax. Trachea is midline. Left chest wall pacer. Cardiomediastinal silhouette is not enlarged. Aorta demonstrates calcified calcification. Osseous structures are intact. Soft tissues are unremarkable. XR/XR chest 1V IMPRESSION: 1. Small bilateral pleural effusions, right greater than left with subjacent atelectasis. 2. Potential loculated effusion within the right mid lung field versus consolidative focus. 3. Interstitial prominence. Electronically signed by: César Melgar MD 07/05/2024 02:52 PM EDT
[2024-07-05 13:22] VITALS: BP 114/61; PULSE 68; RESP 14; TEMP 33; O2SAT 92; BMI 29.3
--- NOTE | 2024-07-05 13:36 | ECG_ITS ---
Test Reason : AMS Blood Pressure : / mmHG Vent. Rate : 064 BPM Atrial Rate : 057 BPM P-R Int : 000 ms QRS Dur : 192 ms QT Int : 532 ms P-R-T Axes : 000 118 -53 degrees QTc Int : 548 ms Ventricular-paced rhythm Abnormal ECG When compared with ECG of 24-MAY-2024 13:34, Premature ventricular complexes are no longer Present Vent. rate has increased BY 2 BPM Referred By: Aleksandar Lopez Electronically Signed By:TANIA GIRALDO
--- NOTE | 2024-07-05 13:36 | ED.GENADULT ---
HPI - General Adult General Chief complaint: General Medical Stated complaint: LETHARGIC CONGESTION Time Seen by Provider: 07/05/24 13:36 History of Present Illness ED Provider: John SORTO narrative: The patient is an 84-year-old male with a history of dementia who lives at the [facility]. He has been living there since January. According to his he has been living in a long term for about 2 years. He has dementia. He has a left [id number] amputation. He also has history of ulcerative colitis. He has recently been placed on palliative care at the [facility] but he has not yet on hospice. Apparently over the last 24 hours his level of alertness has diminished significantly and today he was sent to the emergency room for evaluation. Related Data Home Medications ?Medication ?Instructions ?Recorded ?Confirmed acetaminophen 325 mg tablet 650 mg PO Q12H 04/02/24 05/24/24 apixaban 5 mg tablet 5 mg PO BID 04/02/24 05/24/24 aspirin 81 mg chewable tablet 81 mg PO DAILY 04/02/24 05/24/24 cholecalciferol (vitamin D3) 25 25 mcg PO DAILY 04/02/24 05/24/24 mcg (1,000 unit) tablet ferrous fumarate 325 mg (106 mg 325 mg PO DAILY 04/02/24 05/24/24 iron) tablet finasteride 5 mg tablet 5 mg PO DAILY 04/02/24 05/24/24 glipizide 5 mg tablet 5 mg PO DAILY 04/02/24 05/24/24 insulin glargine 100 unit/mL (3 13 unit subcut QPM 04/02/24 05/24/24 mL) subcutaneous pen insulin lispro 100 unit/mL See Rx Instructions .Route .COMPLEX 04/02/24 05/24/24 subcutaneous pen loperamide 2 mg tablet 2 mg PO Q3H PRN Diarrhea 04/02/24 05/24/24 melatonin 3 mg tablet 3 mg PO BEDTIME PRN Insomnia 04/02/24 05/24/24 tamsulosin 0.4 mg capsule 0.8 mg PO DAILY 04/02/24 05/24/24 terazosin 5 mg capsule 5 mg PO BEDTIME 04/02/24 05/24/24 torsemide 20 mg tablet 20 mg PO DAILY 04/02/24 05/24/24 trazodone 50 mg tablet 50 mg PO DAILY 04/02/24 05/24/24 ipratropium 0.5 mg-albuterol 3 mg 3 ml inhalation Q4-6H PRN Wheezing 04/22/24 05/24/24 (2.5 mg base)/3 mL nebulization soln ascorbic acid (vitamin C) 500 mg 1 g PO DAILY 05/24/24 05/24/24 tablet losartan 25 mg tablet 25 mg PO DAILY 05/24/24 05/24/24 polyethylene glycol 3350 17 gram 17 g PO Q48H 05/24/24 05/24/24 oral powder packet (Miralax) Previous Rx's ?Medication ?Instructions ?Recorded sodium phosphates 19 gram-7 197 ml CO DAILY 3 days #133 mL 04/01/24 gram/118 mL enema (Fleet Enema) sennosides 8.6 mg tablet (Natural 17.2 mg (2 x 8.6 mg) PO BEDTIME 04/22/24 Senna Laxative) constipation #60 tabs ertapenem 1 gram solution for 1 g IV DAILY #5 ea 05/29/24 injection Allergies Allergy/AdvReac Type Severity Reaction Status Date / Time Unable to Assess Allergy Verified 07/05/24 13:26 Review of Systems Review of Systems: Yes Unobtainable due to mental status PMFSH Past Medical History Medical History Stercoral colitis Spontaneous ASD closure Hemorrhoids Dysphagia Obstructive and reflux uropathy BPH (benign prostatic hyperplasia) Chronic kidney disease Spinal stenosis Diabetes mellitus Myotonic muscular dystrophy Anemia Hyperlipidemia Hypertension Atrial fibrillation Pacemaker 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 Atrial flutter Surgical History Status post ablation of atrial fibrillation Hx of appendectomy Family History Family History Mother Colon cancer Social History Social History Alcohol intake: former Patient Tobacco Use Status: Former Tobacco user Tobacco use type: Cigarette Advance Directives: Yes Advance Directives on File: Yes Advance Directives Date on File: 03/31/24 service: Yes Physical Exam ED Vital Signs: Vital Signs - 24 hr 07/05/24 13:22 07/05/24 14:00 07/05/24 15:14 Temperature 91.4 F L 91.9 F L 92.3 F L Pulse Rate 68 64 64 Respiratory Rate 14 14 16 Blood Pressure 114/61 94/67 111/66 Pulse Oximetry 92 93 92 Oxygen Delivery Method Room Air Room Air Room Air 07/05/24 16:10 07/05/24 17:16 07/05/24 17:31 Temperature 93 F L 94 F L 94 F L Pulse Rate 64 64 64 Respiratory Rate 18 14 14 Blood Pressure 111/58 L 118/52 L 118/52 L Pulse Oximetry 94 94 94 Oxygen Delivery Method Room Air Room Air Room Air BMI result Body Mass Index 29.3 Const Other: The patient is a somnolent 84-year-old who does not respond to verbal or gentle tactile stimuli. He looks severely chronically ill. In addition he looks quite acutely ill as well. HENMT Other: No obvious facial asymmetry. Mucous membranes are dry. Eyes Other: Pupils were very small. Conjunctivae clear. Neck Other: No obvious JVD Resp Other: Rhonchorous breath sounds bilaterally Cardio Rate: regular rate Rhythm: regular rhythm Heart sounds: S1 normal heart sound present and S2 normal heart sound present GI Other: The abdomen was soft and not apparently tender. Skin Other: Skin was pale and dry Neuro Other: The patient was somnolent almost to the point of obtundation. He was not responsive to verbal or tactile stimuli. Pupils are very small. Poor tone in all extremities. Extrem Other: The patient has a left [id number] amputation. He has a slight pressure wound on the right heel. Medical Decision Making Medical Decision Making MDM Narrative: The patient is an 84-year-old male who lives at the [facility]. He has been there since January but he has been in nursing homes for the last 2 years. He has a history of dementia. He presents with a change in mental status characterized by somnolence to near obtundation. He presented hypothermic with a rectal temperature of 91.4 degrees. Chest x-ray suggests pneumonia. Labs were done but after my initial conversation with his who is his healthcare proxy she decided to contact his children about possibly considering hospice. Ultimately the family has opted for hospice care which I think is entirely appropriate given his comorbidities and significant dementia. The patient was therefore made comfort care only and will return to the [facility] with a plan for hospice to be initiated at the [facility]. Lab Data 07/05/24 13:41 07/05/24 13:41 Labs: Lab Results 07/05/24 07/05/24 07/05/24 Range/Units 13:41 13:41 13:58 WBC 4.8 (4.8-10.8) X10*3/uL RBC 3.28 L (4.60-5.80) X10*6/uL Hgb 10.5 L (14.0-18.0) g/dl Hct 32.6 L (42.0-52.0) % MCV 99.4 H (80.0-98.0) fL MCH 32.0 (27.0-33.0) pg MCHC 32.2 (31.0-36.0) g/dl RDW 15.8 (11.0-16.0) % Plt Count 104 L D (160-400) X10*3/uL MPV 10.1 (9.4-12.4) fL Immature Gran % (Auto) 0.8 H (0.0-0.4) % Neut % (Auto) 74.6 H (45-73) % Lymph % (Auto) 13.9 L (20-40) % Craven % (Auto) 6.6 (2-11) % Eos % (Auto) 4.1 H (0-4) % Baso % (Auto) 0.0 (0-2) % Lymph # (Auto) 0.7 L (1.2-4.9) X10*3/uL [place]ven # (Auto) 0.3 (0.1-1.2) X10*3/uL Eos # (Auto) 0.2 (0.0-0.4) X10*3/uL Baso # (Auto) 0.0 (0.0-0.2) X10*3/uL Abs Immat Gran (auto) 0.04 H (0.00-0.03) X10*3/uL Absolute Neuts (auto) 3.6 (2.0-8.3) x10*3/uL Absolute Nucleated RBC 0.000 (0.0-0.012) X10*3/uL Nucleated RBC % (auto) 0.0 (0.0-0.2) /100WBC PT 13.5 H (11.1-13.3) SEC INR 1.1 (0.9-1.1) Sodium 144 (135-145) mmol/L Potassium 4.8 D (3.3-5.1) mmol/L Chloride 112 H (96-108) mmol/L Carbon Dioxide 24 (22-29) mmol/L Anion Gap 13 (12-20) BUN 49 H (9-16) mg/dL Creatinine 0.74 (0.5-1.4) mg/dL Estim Creat Clear Calc 91.1 Estimated GFR > 60 Random Glucose 143 H (60-115) mg/dL Lactic Acid 1.1 (0.5-2.0) mmol/L Calcium 9.4 (8.4-10.2) mg/dL Magnesium 2.5 (1.6-2.6) mg/dL Total Bilirubin 0.8 (0.0-1.0) mg/dL Direct Bilirubin 0.2 (0.0-0.5) mg/dL AST 29 (5-37) U/L ALT 28 (0-40) U/L Alkaline Phosphatase 151 H (39-117) U/L C-Reactive Protein 4.86 H (< or = 0.50) mg/dL Total Protein 6.5 (6.5-8.0) g/dL Albumin 2.6 L (3.5-5.0) g/dL Urine Color Yellow Urine Appearance Clear Urine pH 6.5 (5.0-9.0) Ur Specific [place] 1.020 (1.005-1.025) Urine Protein Negative (Neg-Trace) mg/dL Urine Glucose (UA) Negative (Negative) mg/dL Urine Ketones Negative (Negative) mg/dL Urine Blood Negative (Negative) Urine Nitrite Negative (Negative) Ur Leukocyte Esterase Small (1+) H (Negative) Urine RBC 0-2 (0-2) /HPF Urine WBC 6-10 H (0-5) /HPF Ur Squamous Epith Cells 0-2 (0-2) /HPF Urine Bacteria 4+ (None Seen) Hyaline Casts 3-5 (0-2) /LPF Ethyl Alcohol < 10 Cancelled mg/dL Influenza Type A (PCR) NEGATIVE (Negative) Influenza Type B (PCR) NEGATIVE (Negative) RSV RNA Qual (PCR) NEGATIVE (Negative) SARS-CoV-2 RNA (RT-PCR) NEGATIVE (Negative) Discharge Plan Discharge Clinical Impression: Pneumonia, Hypothermia, Hospice care Patient Disposition: [facility] [place] Additional Instructions: I believe the patient has a pneumonia today. He is also quite hypothermic. The family has elected for hospice care. Given the patient has numerous comorbidities I think this is appropriate. The patient is therefore being returned to the [facility] [place] in [place] for hospice care. Prescriptions: No Action Fleet Enema 19-7 gram/118 mL enema 197 ml CO DAILY 3 Days Qty: 133 0RF losartan 25 mg Tablet 25 mg PO DAILY ascorbic acid (vitamin C) 500 mg Tablet 1 g PO DAILY polyethylene glycol 3350 [Miralax] 17 gram powder in packet 17 g PO Q48H ertapenem 1 gram recon soln 1 g IV DAILY Qty: 5 0RF ipratropium-albuterol 0.5 mg-3 mg(2.5 mg base)/3 mL solution for nebulization 3 ml inhalation Q4-6H PRN (Reason: Wheezing) sennosides [Natural Senna Laxative] 8.6 mg tablet 17.2 mg PO BEDTIME Qty: 60 1RF finasteride 5 mg tablet 5 mg PO DAILY terazosin 5 mg capsule 5 mg PO BEDTIME insulin glargine 100 unit/mL (3 mL) insulin pen 13 unit subcut QPM insulin lispro 100 unit/mL insulin pen See Rx Instructions .ROUTE .COMPLEX Rx Instructions: SLIDING SCALE acetaminophen 325 mg tablet 650 mg PO Q12H apixaban 5 mg tablet 5 mg PO BID aspirin 81 mg tablet,chewable 81 mg PO DAILY cholecalciferol (vitamin D3) 25 mcg (1,000 unit) tablet 25 mcg PO DAILY ferrous fumarate 325 mg (106 mg iron) tablet 325 mg PO DAILY glipizide 5 mg tablet 5 mg PO DAILY melatonin 3 mg tablet 3 mg PO BEDTIME PRN (Reason: Insomnia) tamsulosin 0.4 mg capsule 0.8 mg PO DAILY torsemide 20 mg tablet 20 mg PO DAILY trazodone 50 mg tablet 50 mg PO DAILY loperamide 2 mg tablet 2 mg PO Q3H PRN (Reason: Diarrhea) Referrals: [facility] [Outside] (The patient with pneumonia and significant hypothermia. Family has elected for hospice care at this point.) [facility] [Outside] Interventions: ED Discharge Assessment Last Done: 07/05/24 17:31 Discharge Date/Time: 07/05/24 17:32 Print Language: Rwandan
[2024-07-05 13:48] LABS: MANUAL DIFF FLAG NO
[2024-07-05 13:53] LABS: Eosinophils Absolute Auto 0.2 X10*3/uL (0.0-0.4); Eosinophils Percent Auto 4.1 % (0-4); Hematocrit 32.6 % (42.0-52.0); Hemoglobin 10.5 g/dl (14.0-18.0); Imm Gran Abs Auto 0.04 X10*3/uL (0.00-0.03); Imm Gran Pct Auto 0.8 % (0.0-0.4); Lymphocytes Absolute Auto 0.7 X10*3/uL (1.2-4.9); Lymphocytes Percent Auto 13.9 % (20-40); Mean Corpuscular HGB Conc 32.2 g/dl (31.0-36.0); Mean Corpuscular Volume 99.4 fL (80.0-98.0); Mean Platelet Volume 10.1 fL (9.4-12.4); Monocytes Absolute Auto 0.3 X10*3/uL (0.1-1.2); Monocytes Percent Auto 6.6 % (2-11); Neutrophils Absolute Auto 3.6 x10*3/uL (2.0-8.3); Neutrophils Percent Auto 74.6 % (45-73); Platelet Count 104 X10*3/uL (160-400); Red Blood Count 3.28 X10*6/uL (4.60-5.80); Red Cell Distribution Width 15.8 % (11.0-16.0); White Blood Count 4.8 X10*3/uL (4.8-10.8)
--- NOTE | 2024-07-05 13:54 | PC.NURSE ---
[facility] with 2 days of increasing lethargy. patient has had increased congestion [id number], patient dx with pneumonia. patient still has congestion, presents with audible crackles in the upper airway. patient is unresponsive, winces to painful stimuli. rectal temp taken upon arrival 91.4, rectal probe placed to monitor patient temperature. two IV established, in the left #18 in the lateral forearm, and 20# in the wrist labs drawn and obtained. patient started on rewarming measures with bare hugger set to high 43C. patient skin noted to be dry and intact except patients bottom noted to have deep tissue pressure injury, purple in color, patient states he has chronic wound on the right heel, patient wearing pressure boot. patient left leg amputated below the knee due to chronic wounds. patient has [place] cath [facility], urine sample obtained.
[2024-07-05 13:55] LABS: INTERNATIONAL NORM RATIO 1.1 (0.9-1.1); Prothrombin Time 13.5 SEC (11.1-13.3)
[2024-07-05 14:00] VITALS: BP 94/67; PULSE 64; RESP 14; TEMP 33.3; O2SAT 93
[2024-07-05 14:02] LABS: Lactic Acid 1.1 mmol/L (0.5-2.0)
[2024-07-05 14:04] LABS: Appearance Urine Clear; Color Urine Yellow; Glucose Urine UA Negative (Negative); Leukocyte Esterase Urine Small (1+) (Negative); Nitrite Urine Negative (Negative); PH 6.5 (5.0-9.0); UMIC TRIGGER UACC YES; Urine Blood Negative (Negative); Urine Ketones Negative (Negative); Urine Protein Negative (Neg-Trace)
[2024-07-05 14:09] LABS: Bacteria Urine 4+ (None Seen); RBC Urine 0-2 /HPF (0-2); Squamous Epithelial Cell Urine 0-2 /HPF (0-2); UACC Culture Trigger YES
[2024-07-05 14:16] LABS: Alanine Aminotransferase 28 U/L (0-40); Albumin Level 2.6 g/dL (3.5-5.0); Alkaline Phosphatase 151 U/L (39-117); Anion Gap 13 (12-20); Aspartate Amino Transferase 29 U/L (5-37); Bilirubin Direct 0.2 mg/dL (0.0-0.5); Bilirubin Total 0.8 mg/dL (0.0-1.0); Blood Urea Nitrogen 49 mg/dL (9-16); C Reactive Protein 4.86 mg/dL (< or = 0.50); Calcium 9.4 mg/dL (8.4-10.2); Carbon Dioxide 24 mmol/L (22-29); Chloride 112 mmol/L (96-108); Creatinine Clr Calc Pharmacy 91.1; Estimated Glomerular Filt Rate > 60; Ethanol < 10 mg/dL; Glucose Random 143 mg/dL (60-115); Magnesium 2.5 mg/dL (1.6-2.6); Potassium 4.8 mmol/L (3.3-5.1); Sodium 144 mmol/L (135-145); Total Protein 6.5 g/dL (6.5-8.0)
[2024-07-05 14:43] LABS: Influenza A PCR NEGATIVE (Negative); Influenza B PCR NEGATIVE (Negative); Resp Syncy Virus RNA Qual PCR NEGATIVE (Negative); SARS COV2 PCR INHOUSE NEGATIVE (Negative)
[2024-07-05 15:14] VITALS: BP 111/66; PULSE 64; RESP 16; TEMP 33.5; O2SAT 92
--- NOTE | 2024-07-05 15:16 | PC.NURSE ---
decision made [facility] patient appears to be resting comfortably respirations equal and unlabored. patient on bare hugger for rewarming.
[2024-07-05 16:10] VITALS: BP 111/58; PULSE 64; RESP 18; TEMP 33.8; O2SAT 94
[2024-07-05 17:16] VITALS: BP 118/52; PULSE 64; RESP 14; TEMP 34.4; O2SAT 94
--- NOTE | 2024-07-05 17:28 | PC.NURSE ---
report given to [facility]
[2024-07-05 17:31] VITALS: BP 118/52; PULSE 64; RESP 14; TEMP 34.4; O2SAT 94
--- NOTE | 2024-07-05 17:31 | PC.NURSE ---
[facility] aware of [facility] returning to unit
== END 2024-07-05 17:32 | disposition skilled nursing facility (03) ==
PROVIDERS: Emergency Provider Emergency Medicine; PCP Internal Medicine Endocrinology, Diabetes & Metabolism
DX: J18.9 Pneumonia, unspecified organism (principal); F03.90 Unspecified dementia, unspecified severity, without behavioral disturbance, psychotic disturbance, mood disturbance, and anxiety; T68.XXXA Hypothermia, initial encounter; I10 Essential (primary) hypertension; E11.9 Type 2 diabetes mellitus without complications; Z51.5 Encounter for palliative care; Z03.818 Encounter for observation for suspected exposure to other biological agents ruled out; R94.31 Abnormal electrocardiogram [ECG] [EKG]; Z79.899 Other long term (current) drug therapy; Z51.81 Encounter for therapeutic drug level monitoring; Z87.891 Personal history of nicotine dependence; Z79.4 Long term (current) use of insulin
CPT/HCPCS: 0241U; 71045; 80048; 80076; 80307; 81001; 83605; 83735; 85025; 85610; 86140; 87040; 87086; 93005; 99285